=== PATIENT | male | born 1965 | race Asian ===

== ENCOUNTER 2020-07-30 07:25 | Outpatient (REF) | payer OTHER, SELFPAY | END 2020-07-30 07:26 | disposition home or self-care (01) | LOC: HO.LNP 07:25 | PROVIDERS: Visit Provider Internal Medicine Endocrinology, Diabetes & Metabolism | DX: E11.65 Type 2 diabetes mellitus with hyperglycemia (principal); E11.40 Type 2 diabetes mellitus with diabetic neuropathy, unspecified; Z79.4 Long term (current) use of insulin; E78.5 Hyperlipidemia, unspecified; E55.9 Vitamin D deficiency, unspecified; E53.8 Deficiency of other specified B group vitamins | CPT/HCPCS: 82947; 99214 ==

== ENCOUNTER 2020-11-11 06:56 | Outpatient (REF) | payer OTHER, SELFPAY ==
[2020-11-11 07:50] LABS: Mean Corpuscular Hemoglobin 28.1 pg (27.0-33.0); PLT CLUMP 1; Red Cell Distribution Width 12.6 % (11.0-16.0)
[2020-11-11 07:52] LABS: Hematocrit 45.4 % (42-52); Mean Platelet Volume 11.3 fL (9.4-12.4); Platelet Count 132 X10*3/uL (160-400); Red Blood Count 5.34 X10*6/uL (4.60-5.80); White Blood Count 5.7 X10*3/uL (4.8-10.8)
[2020-11-11 08:19] LABS: Creatinine Urine 35.44 mg/dL; Microalbumin Urine < 5.0 mg/L
[2020-11-11 08:38] LABS: Vitamin B12 736 pg/mL (200-900)
[2020-11-11 11:31] LABS: Alanine Aminotransferase 28 U/L (0-40); Albumin Level 4.5 g/dL (3.5-5.0); Alkaline Phosphatase 69 U/L (39-117); Anion Gap 15 (12-20); Aspartate Amino Transferase 24 U/L (5-37); Bilirubin Total 0.4 mg/dL (0.0-1.0); Blood Urea Nitrogen 14 mg/dL (9-16); Calcium 9.4 mg/dL (8.4-10.2); Carbon Dioxide 28 mmol/L (22-29); Chloride 100 mmol/L (96-108); Cholesterol 152 mg/dL; Estimated Glomerular Filt Rate > 60; Glucose Fasting 298 mg/dL (60-99); HDL Cholesterol 49 mg/dL; LDL Cholesterol Calculated 80 mg/dl; Potassium 4.9 mmol/l (3.3-5.1); Sodium 138 mmol/L (135-145); Total Protein 7.6 g/dL (6.5-8.0); Triglycerides 118 mg/dL
[2020-11-11 11:50] LABS: Vitamin D 25-OH Total 31.6 ng/mL (>30)
[2020-11-12 04:42] LABS: LDL Cholesterol Direct 85 mg/dL (<100)
== END 2020-11-11 06:57 | disposition home or self-care (01) ==
LOC: HO.LAB 06:56
PROVIDERS: PCP Internal Medicine; Visit Provider Internal Medicine Endocrinology, Diabetes & Metabolism
DX: E11.65 Type 2 diabetes mellitus with hyperglycemia (principal)
CPT/HCPCS: 36415; 80053; 80061; 82043; 82306; 82607; 83721; 85027

== ENCOUNTER → 2020-11-15 07:17 | Outpatient (BNVA) | payer OTHER, SELFPAY | PROVIDERS: Referring Provider Internal Medicine; Visit Provider Internal Medicine Endocrinology, Diabetes & Metabolism | DX: Z76.89 Persons encountering health services in other specified circumstances (principal) | CPT/HCPCS: 82947; 99212 ==

== ENCOUNTER 2020-11-25 08:28 | Emergency (ER) | payer OTHER, SELFPAY ==
--- NOTE | 2020-11-25 08:55 | ED_ITS ---
HPI - Abdominal Pain General Chief Complaint: Abdominal Pain Stated Complaint: ABD PAIN Time Seen by Provider: 11/25/20 08:55 Source: patient Mode of arrival: ambulatory Limitations: no limitations History of Present Illness MD elicited complaint: abdominal pain Pertinent past history: none Onset (ago): day(s) (started last night) Pain Consistency: constant Location: epigastric and LUQ Severity: mild Quality: cramping Radiation: none Migration to: no migration Exacerbating factors: nothing Relieving factors: nothing Associated symptoms: nausea and vomiting Related Data Home Medications Medication Instructions Recorded Confirmed cyclobenzaprine 10 mg tablet 10 mg PO BID 11/16/20 gabapentin 300 mg capsule mg PO 11/16/20 tramadol 50 mg tablet 50 mg PO TID PRN 11/16/20 Previous Rx's Medication Instructions Recorded cholecalciferol (vitamin D3) 50 50 mcg PO DAILY 30 Days #30 cap 11/03/20 mcg (2,000 unit) capsule cyanocobalamin (vitamin B-12) 1,000 mcg PO .COMPLEX 30 Days #10 11/03/20 1,000 mcg tablet tab dulaglutide 0.75 mg/0.5 mL 0.75 mg SUBCUT QWEEK #2 ml 11/03/20 subcutaneous pen injector metformin 1,000 mg tablet 1,000 mg PO BID 30 Days #60 tab 11/03/20 simvastatin 20 mg tablet 20 mg PO BEDTIME 30 Days #30 tab 11/03/20 empagliflozin 25 mg tablet 25 mg PO DAILY 30 Days #30 tab 11/15/20 flash glucose sensor #2 ea 11/15/20 insulin aspart See Rx Instructions SUBCUT TID 30 11/15/20 (niacinamide)(U-100) 100 unit/mL(3 Days #15 ml mL) subcutaneous pen insulin glargine 100 unit/mL (3 14 unit SUBCUT QPM 30 Days #15 ml 11/15/20 mL) subcutaneous pen ondansetron 4 mg PO Q8H PRN #20 tab 11/25/20 Allergies Allergy/AdvReac Type Severity Reaction Status Date / Time penicillin V Allergy Unknown Unknown Verified 11/16/20 11:21 Penicillins [PENICILLINS] Allergy Unknown UNKNOWN Verified 11/16/20 11:21 Sulfa (Sulfonamide Allergy Unknown UNKNOWN Verified 11/16/20 11:21 Antibiotics) [SULFA (SULFONAMIDE ANTIBIOTICS)] Review of Systems Review of Systems Constitutional : No Weight loss, No Fever, No Chills ENT/Mouth : No sore throat, No Rhinorrhea Eyes: No Swelling, No Redness Cardiovascular : No Chest Pain, No SOB, NoEdema Respiratory : No Cough, No Sputum, No Wheezing Gastrointestinal : Positive Nausea, Positive Vomiting, noDiarrhea, positive abdominal Pain, No Hematochezia, No Melena Genitourinary : No Dysuria, No Urinary Frequency, No Hematuria, No Urgency Musculoskeletal : No joint pain, No Myalgias, No Joint Swelling Skin : No Skin Lesions, No rash Neuro : No Weakness, No Numbness, No Dizziness, No Headache Psych : No Anxiety/Panic, No Depression Heme/Lymph: No Bruising, No Lymphadenopathy Endocrine : No Polyuria, No Polydipsia All other systems reviewed and are negative. Physical Exam Vital Signs: Vital Signs: Last Vital Signs Temp 98.3 F 11/25/20 08:59 Pulse 98 11/25/20 08:59 Resp 16 11/25/20 08:59 BP 124/77 11/25/20 08:59 Pulse Ox 100 11/25/20 08:59 Body Mass Index 2.0 Appearance: Alert. Oriented X3. No acute distress. Eyes: Pupils equal, round and reactive to light. ENT: Pharynx normal. Neck: Normal inspection. Neck supple. CVS: Normal heart rate and rhythm. Pulses normal. Respiratory: No respiratory distress. Breath sounds normal. Abdomen: Soft and mild epigastric ttp, no rebound or guarding Skin: Skin warm and dry. Normal skin color. Normal skin turgor. Extremities: No lower extremity edema. No calf ttp Neuro: Oriented X 3. No motor deficit. No sensory deficit. Course Course Course Narrative: labs stable, enteritis on CT scan no obstruction, able to tolerate PO - stable for DC MDM - Abdominal Pain MDM Narrative Medical decision making narrative: 55 yo male with DM/HPL here with upper abdominal pain and n/v x 3 episodes since last night, no sick contact, no food exposures, will need labs, IVF, IV zofran/pepcid, CT scan for pancreatitis/mass, dispo per results and findings. Lab Data Result diagrams: 11/25/20 09:10 11/25/20 09:10 Labs: Lab Results 01/28/21 01/28/21 01/28/21 Range/Units 09:10 09:10 09:10 WBC 10.0 (4.8-10.8) X10*3/uL RBC 5.71 (4.60-5.80) X10*6/uL Hgb 16.1 (14.0-18.0) g/dl Hct 48.5 (42-52) % MCV 84.9 (80-98) fL MCH 28.2 (27.0-33.0) pg MCHC 33.2 (31.0-36.0) g/dl RDW 13.0 (11.0-16.0) % Plt Count 214 D (160-400) X10*3/uL MPV 10.6 (9.4-12.4) fL Immature Gran % (Auto) 0.2 (0.0-0.4) % Neut % (Auto) 72.9 (45-73) % Lymph % (Auto) 21.8 (20-40) % [place] % (Auto) 4.7 (2-11) % Eos % (Auto) 0.2 (0-4) % Baso % (Auto) 0.2 (0-2) % Lymph # (Auto) 2.2 (1.2-4.9) X10*3/uL [place] # (Auto) 0.5 (0.1-1.2) X10*3/uL Eos # (Auto) 0.0 (0.0-0.4) X10*3/uL Baso # (Auto) 0.0 (0.0-0.2) X10*3/uL Abs Immat Gran (auto) 0.02 (0.00-0.03) X10*3/uL Absolute Neuts (auto) 7.3 (2.0-8.3) X10*3/uL Absolute Nucleated RBC 0.000 (0.0-0.012) X10*3/uL Nucleated RBC % (auto) 0.0 (0.0-0.2) /100WBC Hold Blue Top SEE NOTE Sodium 142 (135-145) mmol/L Potassium 4.8 (3.3-5.1) mmol/l Chloride 104 (96-108) mmol/L Carbon Dioxide 26 (22-29) mmol/L Anion Gap 17 (12-20) BUN 16 (9-16) mg/dL Creatinine 0.98 (0.5-1.4) mg/dL Estim Creat Clear Calc 7.0 Estimated GFR > 60 Random Glucose 173 H (60-115) mg/dL Calcium 10.1 D (8.4-10.2) mg/dL Magnesium 2.3 (1.6-2.6) mg/dL Total Bilirubin 0.8 (0.0-1.0) mg/dL Direct Bilirubin 0.3 (0.0-0.5) mg/dL AST 21 (5-37) U/L ALT 18 (0-40) U/L Alkaline Phosphatase 75 (39-117) U/L Troponin I High Sens (<3.5-35.0) ng/L Total Protein 8.1 H (6.5-8.0) g/dL Albumin 4.8 (3.5-5.0) g/dL Lipase 56 (8-78) U/L 11/25/20 Range/Units 09:10 WBC (4.8-10.8) X10*3/uL RBC (4.60-5.80) X10*6/uL Hgb (14.0-18.0) g/dl Hct (42-52) % MCV (80-98) fL MCH (27.0-33.0) pg MCHC (31.0-36.0) g/dl RDW (11.0-16.0) % Plt Count (160-400) X10*3/uL MPV (9.4-12.4) fL Immature Gran % (Auto) (0.0-0.4) % Neut % (Auto) (45-73) % Lymph % (Auto) (20-40) % [place] % (Auto) (2-11) % Eos % (Auto) (0-4) % Baso % (Auto) (0-2) % Lymph # (Auto) (1.2-4.9) X10*3/uL [place] # (Auto) (0.1-1.2) X10*3/uL Eos # (Auto) (0.0-0.4) X10*3/uL Baso # (Auto) (0.0-0.2) X10*3/uL Abs Immat Gran (auto) (0.00-0.03) X10*3/uL Absolute Neuts (auto) (2.0-8.3) X10*3/uL Absolute Nucleated RBC (0.0-0.012) X10*3/uL Nucleated RBC % (auto) (0.0-0.2) /100WBC Hold Blue Top Sodium (135-145) mmol/L Potassium (3.3-5.1) mmol/l Chloride (96-108) mmol/L Carbon Dioxide (22-29) mmol/L Anion Gap (12-20) BUN (9-16) mg/dL Creatinine (0.5-1.4) mg/dL Estim Creat Clear Calc Estimated GFR Random Glucose (60-115) mg/dL Calcium (8.4-10.2) mg/dL Magnesium (1.6-2.6) mg/dL Total Bilirubin (0.0-1.0) mg/dL Direct Bilirubin (0.0-0.5) mg/dL AST (5-37) U/L ALT (0-40) U/L Alkaline Phosphatase (39-117) U/L Troponin I High Sens < 3.5 (<3.5-35.0) ng/L Total Protein (6.5-8.0) g/dL Albumin (3.5-5.0) g/dL Lipase (8-78) U/L ECG Data Attestation: I personally reviewed and interpreted this ECG as follows: ECG interpretation date: 11/25/20 ECG interpretation time: 09:18 Interpretation: Rate: 104 Rhythm: sinus tachycardia [place]: normal Normal P waves. Normal MEENA. Normal QRS complex. ST T wave : normal , no SHEREE qTC: normal prior studies: no acute ischemia The study has been interpreted contemporaneously by me. . Discharge Plan Discharge Clinical Impression: Abdominal pain Qualifiers: Abdominal location: left upper quadrant Qualified Code(s): R10.12 - Left upper quadrant pain Vomiting Qualifiers: Vomiting type: unspecified Vomiting Intractability: non-intractable Nausea presence: with nausea Qualified Code(s): R11.2 - Nausea with vomiting, unspe cified Patient Disposition: Home, Self-Care Instructions: Acute Nausea and Vomiting (ED), Abdominal Pain (ED) Additional Instructions: return to ED for any worsening symptoms or concerns eat a bland diet bananas, rice apple sauce toast Prescriptions: New ondansetron 4 mg tablet,disintegrating 4 mg PO Q8H PRN (Reason: nausea and vomiting) Qty: 20 RF: 0 No Action cholecalciferol (vitamin D3) 50 mcg (2,000 unit) capsule 50 mcg PO DAILY 30 Days Qty: 30 RF: 6 cyanocobalamin (vitamin B-12) 1,000 mcg tablet 1,000 mcg PO .COMPLEX 30 Days Qty: 10 RF: 6 Trulicity 0.75 mg/0.5 mL pen injector 0.75 mg subcut QWEEK Qty: 2 RF: 6 metformin 1,000 mg tablet 1,000 mg PO BID 30 Days Qty: 60 RF: 6 simvastatin 20 mg tablet 20 mg PO BEDTIME 30 Days Qty: 30 RF: 4 Jardiance 25 mg tablet 25 mg PO DAILY 30 Days Qty: 30 RF: 6 Fiasp FlexTouch U-100 Insulin 100 unit/mL (3 mL) insulin pen See Rx Instructions subcut TID 30 Days Qty: 15 RF: 6 Lantus Solostar U-100 Insulin 100 unit/mL (3 mL) insulin pen 14 unit subcut QPM 30 Days Qty: 15 RF: 6 (DME) FreeStyle Gregg 14 Day Sensor Kit See Rx Instructions .MEDSUPPLY Qty: 2 RF: 11 Referrals: Gabriel Padilla MD [Primary Care Provider] - 2 days (if not better) [facility] Past Medical History Attestation statement: The following information was validated with the patient. 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
[2020-11-25 08:59] VITALS: BP 124/77; PULSE 98; RESP 16; TEMP 36.8; O2SAT 100
--- NOTE | 2020-11-25 09:00 | ECG_ITS ---
Test Reason : FALL Blood Pressure : / mmHG Vent. Rate : 104 BPM Atrial Rate : 104 BPM P-R Int : 152 ms QRS Dur : 070 ms QT Int : 340 ms P-R-T Axes : 065 089 058 degrees QTc Int : 447 ms Sinus tachycardia Otherwise normal ECG When compared with ECG of 11-SEP-2013 06:19, No significant change was found Referred By: Valeri Fang Electronically Signed By:Gato Bennett
--- NOTE | 2020-11-25 09:00 | CT_ITS ---
EXAMINATION: CT ABDOMEN AND PELVIS WITH CONTRAST CLINICAL INFORMATION: Epigastric, left-sided pain. COMPARISON: 09/11/2013 TECHNIQUE: Multidetector volumetric images were obtained from the superior aspect of the liver through the pubic symphysis following administration 85 mL of Omnipaque 350 intravenous contrast. Sagittal and coronal reformatted images were obtained on the technologist's workstation. Oral contrast: No This CT examination was performed using dose optimization techniques as appropriate, variously including the following: *Automated exposure control *Adjustment of mA and/or kV according to patient size (this includes techniques or standardized protocols for targeted exams where dose is matched to indication/reason for exam; i.e. extremities or head) *Use of iterative reconstruction technique DLP: 530 mGy-cm FINDINGS: LUNG BASES: Minimal right basilar atelectasis. The visualized cardiac structures are unremarkable. LIVER, GALLBLADDER, AND BILIARY TREE: The liver is normal in size, shape, and attenuation. No focal hepatic lesion or biliary ductal dilatation is present. The gallbladder is contracted with no evidence of radiopaque gallstones, gallbladder wall thickening, or obvious pericholecystic inflammatory changes. PANCREAS: Unremarkable. SPLEEN: Unremarkable. ADRENAL GLANDS: Unremarkable. KIDNEYS AND URETERS: The kidneys are normal in size, shape, and attenuation. No hydronephrosis, hydroureter, or calculi seen. No perinephric stranding. BLADDER: Unremarkable. GASTROINTESTINAL TRACT: The stomach is distended without wall thickening. Mild fluid-filled prominence of the small bowel proximally. No inflammatory changes or wall thickening. No colonic wall thickening. No free air or free fluid. The appendix is not visualized. ABDOMINAL WALL: No significant hernia is appreciated. LYMPH NODES: Normal. VASCULAR: Unremarkable. PELVIC VISCERA: The prostate and seminal vesicles are unremarkable. OSSEOUS STRUCTURES: No acute or suspicious osseous abnormality. CT/CT abdomen pelvis w con IMPRESSION: Fluid-filled mild distention of the proximal small bowel. No associated wall thickening or inflammatory change. This could still represent mild enteritis. Otherwise no acute finding in the abdomen or pelvis.
[2020-11-25] MEDS: 0.9 % Sodium Chloride 500 ML IV (09:10)
[2020-11-25] MEDS: ondansetron HCL 4 MG/2 ML VIAL IVPUSH (09:14)
[2020-11-25] MEDS: Famotidine/PF 20 MG/2 ML VIAL IVPUSH (09:15)
[2020-11-25 09:19] LABS: MANUAL DIFF FLAG NO
[2020-11-25 09:24] LABS: Basophils Percent Auto 0.2 % (0-2); Eosinophils Percent Auto 0.2 % (0-4); Hematocrit 48.5 % (42-52); Hemoglobin 16.1 g/dl (14.0-18.0); Imm Gran Abs Auto 0.02 X10*3/uL (0.00-0.03); Imm Gran Pct Auto 0.2 % (0.0-0.4); Lymphocytes Absolute Auto 2.2 X10*3/uL (1.2-4.9); Lymphocytes Percent Auto 21.8 % (20-40); Mean Corpuscular HGB Conc 33.2 g/dl (31.0-36.0); Mean Corpuscular Hemoglobin 28.2 pg (27.0-33.0); Mean Corpuscular Volume 84.9 fL (80-98); Mean Platelet Volume 10.6 fL (9.4-12.4); Monocytes Absolute Auto 0.5 X10*3/uL (0.1-1.2); Monocytes Percent Auto 4.7 % (2-11); Neutrophils Absolute Auto 7.3 X10*3/uL (2.0-8.3); Neutrophils Percent Auto 72.9 % (45-73); Platelet Count 214 X10*3/uL (160-400); Red Blood Count 5.71 X10*6/uL (4.60-5.80)
[2020-11-25 09:52] LABS: Alanine Aminotransferase 18 U/L (0-40); Albumin Level 4.8 g/dL (3.5-5.0); Alkaline Phosphatase 75 U/L (39-117); Anion Gap 17 (12-20); Aspartate Amino Transferase 21 U/L (5-37); Bilirubin Direct 0.3 mg/dL (0.0-0.5); Bilirubin Total 0.8 mg/dL (0.0-1.0); Blood Urea Nitrogen 16 mg/dL (9-16); Calcium 10.1 mg/dL (8.4-10.2); Carbon Dioxide 26 mmol/L (22-29); Chloride 104 mmol/L (96-108); Estimated Glomerular Filt Rate > 60; Glucose Random 173 mg/dL (60-115); Lipase 56 U/L (8-78); Magnesium 2.3 mg/dL (1.6-2.6); Potassium 4.8 mmol/l (3.3-5.1); Sodium 142 mmol/L (135-145); Total Protein 8.1 g/dL (6.5-8.0)
[2020-11-25 09:55] LABS: Troponin-I High Sensitivity < 3.5 ng/L (<3.5-35.0)
[2020-11-25] MEDS: iohexoL 350 MG/ML 100 ML INFUS..BTL 85 ML IV (10:44)
== END 2020-11-25 12:07 | disposition home or self-care (01) ==
PROVIDERS: Emergency Provider Emergency Medicine; PCP Internal Medicine
DX: R10.12 Left upper quadrant pain (principal); R11.2 Nausea with vomiting, unspecified; E11.9 Type 2 diabetes mellitus without complications; Z79.4 Long term (current) use of insulin
CPT/HCPCS: 36415; 74177; 80048; 80076; 83690; 83735; 84484; 85025; 93005; 96361; 96374; 96375; 99284; J2405; Q9967

== ENCOUNTER → 2020-12-06 09:26 | Outpatient (BNVA) | payer OTHER, SELFPAY | PROVIDERS: PCP Physician Assistant; Visit Provider Orthopaedic Surgery | DX: M24.811 Other specific joint derangements of right shoulder, not elsewhere classified (principal); E11.40 Type 2 diabetes mellitus with diabetic neuropathy, unspecified; E11.65 Type 2 diabetes mellitus with hyperglycemia | CPT/HCPCS: 20610; 99212; J1100 ==

== ENCOUNTER 2020-12-24 09:05 | Outpatient (REF) | payer OTHER, SELFPAY ==
--- NOTE | ~2020-12-24 | MR_ITS ---
EXAMINATION: MR SHOULDER WITHOUT CONTRAST, RIGHT CLINICAL INFORMATION: Derangement of right shoulder. Patient reports shoulder pain. COMPARISON: None TECHNIQUE: MRI of the shoulder without contrast was performed on a high-field scanner. FINDINGS: ROTATOR CUFF: Supraspinatus: There is a full-thickness tear of the anterior supraspinatus tendon resulting in retraction of the torn portion of the tendon back to the apex of the humeral head. This results in a tendon gap measuring 2.3 cm medial to lateral and 1.1 cm AP. There is no atrophy or fatty infiltration of the muscle. Infraspinatus: Normal. Teres minor: Normal. Subscapularis: Mild heterogeneity of the superior fibers compatible with tendinosis. No measurable tear. Muscle normal BICEPS: The biceps is slightly medially positioned as it passes into the bicipital groove partially overlying the lateral aspect of the lesser tuberosity. Slight irregularity of the posterior surface which could reflect volume average artifact versus superficial partial tearing or fraying. See axial image 14 series 2. CORACOACROMIAL ARCH: The AC joint is normal. There is mild concavity of the undersurface of the acromion without spur. BURSA: Increased fluid in the subacromial-subdeltoid bursa. LABRUM/CAPSULE: Normal. GLENOHUMERAL JOINT/MARROW: Enthesopathic cystic change in the greater tuberosity most evident posteriorly. MR/MR shoulder RT wo con IMPRESSION: Moderate sized insertional full-thickness tear involving the anterior supraspinatus tendon. No muscle atrophy. Tendinosis of the subscapularis. Slight medial subluxation of the biceps tendon. Question surface of partial tearing/fraying versus flattening related to the bone indentation on the tendon related to the medial subluxation.
== END 2020-12-24 09:06 | disposition home or self-care (01) ==
LOC: HO.MRI 09:05
PROVIDERS: Visit Provider Orthopaedic Surgery
DX: M24.811 Other specific joint derangements of right shoulder, not elsewhere classified (principal)
CPT/HCPCS: 73221

== ENCOUNTER → 2021-01-07 09:22 | Outpatient (BNVA) | payer OTHER, SELFPAY | PROVIDERS: PCP Physician Assistant; Visit Provider Orthopaedic Surgery | DX: M75.101 Unspecified rotator cuff tear or rupture of right shoulder, not specified as traumatic (principal) | CPT/HCPCS: 99212 ==

== ENCOUNTER → 2021-02-16 07:27 | Outpatient (BNVA) | payer OTHER, SELFPAY | PROVIDERS: PCP Physician Assistant; Visit Provider Internal Medicine Endocrinology, Diabetes & Metabolism | DX: E11.65 Type 2 diabetes mellitus with hyperglycemia (principal); E11.40 Type 2 diabetes mellitus with diabetic neuropathy, unspecified; E78.5 Hyperlipidemia, unspecified; E55.9 Vitamin D deficiency, unspecified; E53.8 Deficiency of other specified B group vitamins; Z79.4 Long term (current) use of insulin | CPT/HCPCS: 82947; 99212 ==

== ENCOUNTER → 2021-05-18 07:27 | Outpatient (BNVA) | payer OTHER, SELFPAY | PROVIDERS: PCP Physician Assistant; Visit Provider Internal Medicine Endocrinology, Diabetes & Metabolism | DX: E11.65 Type 2 diabetes mellitus with hyperglycemia (principal); E11.40 Type 2 diabetes mellitus with diabetic neuropathy, unspecified; E78.5 Hyperlipidemia, unspecified; E55.9 Vitamin D deficiency, unspecified; D50.9 Iron deficiency anemia, unspecified; E53.8 Deficiency of other specified B group vitamins; Z88.0 Allergy status to penicillin; Z88.2 Allergy status to sulfonamides; Z79.4 Long term (current) use of insulin; Z79.899 Other long term (current) drug therapy | CPT/HCPCS: 82947; 99212 ==

== ENCOUNTER 2022-01-09 07:39 | Outpatient (REF) | payer OTHER, SELFPAY ==
[2022-01-09 08:51] LABS: Estimated Average Glucose 186 mg/dL; Hemoglobin A1c % 8.1 %
[2022-01-09 09:17] LABS: Alanine Aminotransferase 21 U/L (0-40); Albumin Level 4.4 g/dL (3.5-5.0); Alkaline Phosphatase 69 U/L (39-117); Anion Gap 15 (12-20); Aspartate Amino Transferase 19 U/L (5-37); Bilirubin Total 0.4 mg/dL (0.0-1.0); Blood Urea Nitrogen 16 mg/dL (9-16); Calcium 9.6 mg/dL (8.4-10.2); Carbon Dioxide 27 mmol/L (22-29); Chloride 103 mmol/L (96-108); Cholesterol 139 mg/dL; Estimated Glomerular Filt Rate > 60; Glucose Fasting 196 mg/dL (60-99); HDL Cholesterol 36 mg/dL; LDL Cholesterol Calculated 72 mg/dl; Potassium 4.6 mmol/L (3.3-5.1); Sodium 140 mmol/L (135-145); Total Protein 7.8 g/dL (6.5-8.0); Triglycerides 158 mg/dL
[2022-01-09 09:41] LABS: Creatinine Urine 57.37 mg/dL; Microalbumin Urine < 5.0 mg/L
[2022-01-10 18:25] LABS: LDL Cholesterol Direct 84 mg/dL (<100)
== END 2022-01-09 07:40 | disposition home or self-care (01) ==
LOC: HO.LAB 07:39
PROVIDERS: PCP Internal Medicine; Visit Provider Nurse Practitioner Gerontology
DX: E11.65 Type 2 diabetes mellitus with hyperglycemia (principal)
CPT/HCPCS: 36415; 80053; 80061; 82043; 83036; 83721

== ENCOUNTER → 2022-01-17 07:26 | Outpatient (BNVA) | payer OTHER, SELFPAY | PROVIDERS: PCP Physician Assistant; Visit Provider Nurse Practitioner Gerontology | DX: E11.65 Type 2 diabetes mellitus with hyperglycemia (principal); E78.5 Hyperlipidemia, unspecified; E55.9 Vitamin D deficiency, unspecified; E53.8 Deficiency of other specified B group vitamins; Z79.4 Long term (current) use of insulin | CPT/HCPCS: 82947; 99212 ==

== ENCOUNTER 2022-04-20 07:29 | Outpatient (REF) | payer OTHER, SELFPAY ==
[2022-04-20 10:42] LABS: Vitamin B12 383 pg/mL (200-900)
[2022-04-20 11:14] LABS: Vitamin D 25-OH Total 38.7 ng/mL (>30)
== END 2022-04-20 07:30 | disposition home or self-care (01) ==
LOC: HO.LAB 07:29
PROVIDERS: PCP Internal Medicine; Visit Provider Nurse Practitioner Gerontology
DX: E11.65 Type 2 diabetes mellitus with hyperglycemia (principal); E78.5 Hyperlipidemia, unspecified; E55.9 Vitamin D deficiency, unspecified; E53.8 Deficiency of other specified B group vitamins; Z79.4 Long term (current) use of insulin
CPT/HCPCS: 36415; 82306; 82607; 82947; 99212

== ENCOUNTER 2022-12-05 08:33 | Outpatient (REF) | payer OTHER, SELFPAY ==
[2022-12-05 11:29] LABS: MANUAL DIFF FLAG NO
[2022-12-05 11:35] LABS: Basophils Percent Auto 0.3 % (0-2); Eosinophils Absolute Auto 0.1 X10*3/uL (0.0-0.4); Eosinophils Percent Auto 1.2 % (0-4); Hematocrit 44.6 % (42.0-52.0); Hemoglobin 14.2 g/dl (14.0-18.0); Imm Gran Abs Auto 0.01 X10*3/uL (0.00-0.03); Imm Gran Pct Auto 0.2 % (0.0-0.4); Lymphocytes Absolute Auto 3.5 X10*3/uL (1.2-4.9); Lymphocytes Percent Auto 52.3 % (20-40); Mean Corpuscular HGB Conc 31.8 g/dl (31.0-36.0); Mean Corpuscular Hemoglobin 26.4 pg (27.0-33.0); Mean Corpuscular Volume 82.9 fL (80.0-98.0); Mean Platelet Volume 10.4 fL (9.4-12.4); Monocytes Absolute Auto 0.4 X10*3/uL (0.1-1.2); Monocytes Percent Auto 6.1 % (2-11); Neutrophils Absolute Auto 2.6 x10*3/uL (2.0-8.3); Neutrophils Percent Auto 39.9 % (45-73); Platelet Count 199 X10*3/uL (160-400); Red Blood Count 5.38 X10*6/uL (4.60-5.80); Red Cell Distribution Width 13.7 % (11.0-16.0); White Blood Count 6.6 X10*3/uL (4.8-10.8)
[2022-12-05 12:01] LABS: Alanine Aminotransferase 17 U/L (0-40); Albumin Level 4.3 g/dL (3.5-5.0); Alkaline Phosphatase 68 U/L (39-117); Anion Gap 15 (12-20); Aspartate Amino Transferase 18 U/L (5-37); Bilirubin Total 0.5 mg/dL (0.0-1.0); Blood Urea Nitrogen 15 mg/dL (9-16); Calcium 9.5 mg/dL (8.4-10.2); Carbon Dioxide 25 mmol/L (22-29); Chloride 105 mmol/L (96-108); Cholesterol 138 mg/dL; Estimated Glomerular Filt Rate > 60; Glucose Fasting 156 mg/dL (60-99); HDL Cholesterol 36 mg/dL; LDL Cholesterol Calculated 80 mg/dl; Potassium 4.7 mmol/L (3.3-5.1); Sodium 140 mmol/L (135-145); Total Protein 7.3 g/dL (6.5-8.0); Triglycerides 110 mg/dL
[2022-12-05 12:12] LABS: Estimated Average Glucose 194 mg/dL; Hemoglobin A1c % 8.4 %
[2022-12-05 12:22] LABS: TSH reflex Free T4 1.67 uIU/mL (0.32-4.0); Vitamin B12 393 pg/mL (200-900)
[2022-12-10 16:03] LABS: Vitamin D 25-OH, D2 <4 ng/mL; Vitamin D 25-OH, D3 27 ng/mL; Vitamin D 25-OH, Total 27 ng/mL (30-100)
== END 2022-12-05 08:34 | disposition home or self-care (01) ==
LOC: HO.HMGCLDS 08:33
PROVIDERS: PCP Internal Medicine; Visit Provider Internal Medicine
DX: E11.40 Type 2 diabetes mellitus with diabetic neuropathy, unspecified (principal); E53.8 Deficiency of other specified B group vitamins; E55.9 Vitamin D deficiency, unspecified; E78.5 Hyperlipidemia, unspecified; K21.9 Gastro-esophageal reflux disease without esophagitis; Z79.4 Long term (current) use of insulin
CPT/HCPCS: 36415; 80053; 80061; 82306; 82607; 83036; 84443; 85025

== ENCOUNTER → 2023-03-28 07:54 | Outpatient (BNVA) | payer OTHER, SELFPAY | PROVIDERS: PCP Internal Medicine; Visit Provider Internal Medicine Endocrinology, Diabetes & Metabolism | DX: E11.65 Type 2 diabetes mellitus with hyperglycemia (principal); Z79.4 Long term (current) use of insulin | CPT/HCPCS: 82947; 83036; 99212 ==

== ENCOUNTER 2023-05-18 08:27 | Outpatient (AMB) | payer OTHER, SELFPAY ==
--- NOTE | 2023-05-18 09:11 | MHC.AMDMED ---
Intake Intake Visit Reasons: DM with gregg Operational Test Mechanic Required: No Accompanied by: Self / Same As Patient Allergies penicillin V Allergy (Unknown, Verified 03/28/23 07:58) Unknown Penicillins [PENICILLINS] Allergy (Unknown, Verified 03/28/23 07:58) UNKNOWN Sulfa (Sulfonamide Antibiotics) [SULFA (SULFONAMIDE ANTIBIOTICS)] Allergy (Unknown, Verified 03/28/23 07:58) UNKNOWN HPI Comprehensive Diabetes Asmnt Most Recent Diabetes Results: Microalb/Creat Ratio TNP 01/09/22 Cholesterol 138 mg/dL 12/05/22 HDL Cholesterol 36 mg/dL 12/05/22 Triglycerides 110 mg/dL 12/05/22 Creatinine 0.73 mg/dL (0.5-1.4) 12/05/22 Blood Urea Nitrogen 15 mg/dL (9-16) 12/05/22 Sodium 140 mmol/L (135-145) 12/05/22 Potassium 4.7 mmol/L (3.3-5.1) 12/05/22 Chloride 105 mmol/L (96-108) 12/05/22 Carbon Dioxide 25 mmol/L (22-29) 12/05/22 Calcium 9.5 mg/dL (8.4-10.2) 12/05/22 AST 18 U/L (5-37) 12/05/22 ALT 17 U/L (0-40) 12/05/22 Total Protein 7.3 g/dL (6.5-8.0) 12/05/22 Albumin 4.3 g/dL (3.5-5.0) 12/05/22 [facility] Medical History B12 deficiency Diabetes type 2, uncontrolled Dyslipidemia Internal 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 of right shoulder 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 Vitamin D deficiency Surgical History Hx of appendectomy Family History Mother Diabetes Social History Housing: House Alcohol intake: never Patient Tobacco Use Status: Former Tobacco user e-Cigarette/Vaping Use: Never Used Second Hand Smoke Exposure: No service: No Current occupational status: employed 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 2= needs review? 3= comprehend keep point? 4= demonstrates understanding/ competent? NC= Not Covered Topics Learning Objective: Initial visit Initial or post srvc Initial or post srvc Initial or post srvc Initial or post srvc Initial or post srvc Post srvc Comments Pre Edu-assessment/plan Outcome or reassess Outcome or reassess Outcome or reassess Outcome or reassess Outcome or reassess Outcome or reassess Diabetes pathophysiology 2 Healthy eating 2 Being active 2 Taking medication 2 Monitoring glucose Acute complication Chronic complicated 2 Lifestyle and healthy coping 1 Diabetes distress in support ?Diabetes pathophysiology: ?Defined diabetes med identify own type of diabetes; list 3 options for treating diabetes Healthy eating: ?Described effect of type, amount and ?timing of food on blood glucose; list 3 methods for planning meal Being active: ?State effect of exercise on blood glucose level Taking medication: ?State effect of diabetes medications on diabetes; name diabetes medications taking, action and side effects Monitoring glucose: ?Identify recommended blood glucose targets and personal target Acute complication: ?List symptoms and treatment of hyper and hypoglycemia, DKA, sick day guidelines and guidelines for severe weather or situations of crisis and diabetes supply manage Chronic complication: ?To find the relationship of blood glucose levels to long-term complications of diabetes in screening and preventative measures Lifestyle and healthy coping: ?Described lifestyle and healthy coping strategies to rule out diabetes self-management Diabetes to stress and support: ?Recognize Diabetes to stress and be able to identified support options Learning objectives: The patient was provided with verbal and written education on the following topics as outlined below. The patient met all learning objectives and was able to verbalize understanding and provide teach back of education topics discussed . The patient was provided with the opportunity to ask questions and all questions were answered. Patient Assessment Assess patient education level/literacy/barriers Patient questions/concerns, patient with diagnosed with type 2 diabetes approximately 2004. Patient's last A1c on 03/28/2023 9.4%. Patient is currently taking Tresiba 18 units Faisp before meals, 12 units for breakfast, 16 units for lunch, 16-18 units at supper Metformin 2000 mg b.i.d. Jardiance 25 mg daily After visit with Dr. Sherwood on 03/28/2023 patient has stopped Trulicity 3 mg due to acid reflux Patient works 6 days a week at [employer]. Reports eating 3 meals daily, patient eats traditional [place] istyle bread with every meal, patient also drinks tea with sugar, and enjoys sweets Patient does not participate any organized physical activity, reports that his office is on the for so goes up and down the stairs at work multiple times daily What is Diabetes? Pathophysiology How the body produces and uses insulin Identify type of DM Risk factors Signs of Diabetes Brief overview of Diabetes Management Monitoring blood sugar Following a meal plan Regular exercise Maintaining a healthy weight Taking medication as needed Members of the care team (PCP, RN, MA, RD, CDE, parts counter salesperson) Blood glucose monitoring When/how often to test Target blood sugar ranges Patient using freestyle Gregg 2 to test glucose levels Patient's average glucose for the past 2 weeks 245 mg/dL Patient above target 72% Patient at target 28% Patient below target 0% Introduction to Nutrition Importance of healthy diet in managing DM Diet is personalized to individual preference Review patient?s regular diet/food preferences Who prepares meals/does food shopping/ Dining out?/ Barriers? How diet effects glucose Eating 3 balanced meals a day with small, healthy snacks between meals Review food groups Carbohydrates: What is a carbohydrate/Which food/food groups are considered carbohydrates Effect of carbohydrates on blood glucose Portion sizes Reading food labels Basic carb counting (if applicable per nursing assessment) Plate method Meal planning Recommendations: Follow plate method, consistent carbs and read nutritional labels. Smart Goal: Patient will reduce carbohydrate portion at suppertime Educational Materials: The patient was provided with the following written educational materials: Planning Healthy Meals Handout Patient Response to instructions: Comprehension of Instructions: Fair Readiness to make changes: Contemplation How confident they feel about making changes: Fair Patient Instructions: Include regular daily activity. ADA recommends 30 minutes of exercise 5 days a week. Weight loss talk to PCP or Hotel Or Motel Room Service Supervisor before starting new plan. Test blood sugar as directed; Fasting and 2hpp largest meal. Watch trends in results. Utilize results and to assess how food, physical activity and medications affect blood sugar results. Bring glucometer or CGM to next visit. Be knowledgeable about diabetes medication, its action, side effects, efficacy, toxicity, prescribed dosage, appropriate timing and frequency of administration, effect of missed and delayed doses and instructions for storage, travel and safety. Increase Tresiba from 18 units to 20 unit daily Follow-up with metal drill press operator in 3 months Coding Level of Care Code Est Pt Level 1 (74165) Diagnoses Diabetes type 2, uncontrolled E11.65
== END 2023-05-18 09:39 | disposition home or self-care (01) ==
PROVIDERS: PCP Internal Medicine; Visit Provider Registered Nurse Diabetes Educator
DX: E11.65 Type 2 diabetes mellitus with hyperglycemia (principal)

== ENCOUNTER → 2023-05-18 08:27 | Outpatient (BNVA) | payer OTHER, SELFPAY | PROVIDERS: Visit Provider Registered Nurse Diabetes Educator | DX: E11.65 Type 2 diabetes mellitus with hyperglycemia (principal) | CPT/HCPCS: 99211 ==

== ENCOUNTER 2023-07-19 08:05 | Outpatient (REF) | payer OTHER, SELFPAY ==
[2023-07-19 09:18] LABS: Estimated Average Glucose 275 mg/dL; Hemoglobin A1c % 11.2 % (<6.0)
[2023-07-19 09:39] LABS: Alanine Aminotransferase 15 U/L (0-40); Alkaline Phosphatase 72 U/L (39-117); Anion Gap 12 (12-20); Aspartate Amino Transferase 17 U/L (5-37); Bilirubin Total 0.5 mg/dL (0.0-1.0); Blood Urea Nitrogen 10 mg/dL (9-16); Calcium 9.4 mg/dL (8.4-10.2); Carbon Dioxide 28 mmol/L (22-29); Chloride 103 mmol/L (96-108); Estimated Glomerular Filt Rate > 60; Glucose Random 213 mg/dL (60-115); Potassium 4.2 mmol/L (3.3-5.1); Sodium 139 mmol/L (135-145); Total Protein 7.4 g/dL (6.5-8.0)
[2023-07-19 11:19] LABS: Microalbumin Urine < 5.0 mg/L
== END 2023-07-19 08:06 | disposition home or self-care (01) ==
LOC: HO.LAB 08:05
PROVIDERS: PCP Internal Medicine; Visit Provider Internal Medicine Endocrinology, Diabetes & Metabolism
DX: E11.9 Type 2 diabetes mellitus without complications (principal); K21.9 Gastro-esophageal reflux disease without esophagitis; E78.5 Hyperlipidemia, unspecified; Z79.4 Long term (current) use of insulin
CPT/HCPCS: 36415; 80053; 82043; 82570; 83036

== ENCOUNTER 2023-07-27 08:00 | Outpatient (AMB) | payer OTHER, SELFPAY ==
--- NOTE | 2023-07-27 08:03 | MHC.OFFVIS ---
Intake Vital Signs 07/27/23 08:04 Height 5 ft 6 in Weight 142 lb 13.753 oz BMI 23.1 BP 104/58 L Blood Pressure Location Lt brachial Position Sitting Pulse 76 Pulse Source Pulse Oximeter Intake Visit Reasons: DM with Gregg/LVM Intake Note: Patient present today to follow up on Type 2 Diabetes Mellitus. Patient receives DME supplies through: Last Diabetic Eye exam: 08/2022 Last Podiatry Visit: None Random Glucose: 156 mg/dl HgA1C: 11.2% 07/19/23 Can Sealer Required: No Accompanied by: Self / Same As Patient Allergies penicillin V Allergy (Unknown, Verified 07/27/23 08:06) Unknown Penicillins [PENICILLINS] Allergy (Unknown, Verified 07/27/23 08:06) UNKNOWN Sulfa (Sulfonamide Antibiotics) [SULFA (SULFONAMIDE ANTIBIOTICS)] Allergy (Unknown, Verified 07/27/23 08:06) UNKNOWN HPI HPI Comments History of Present Illness Details Patient is a 58 year male with DM type 2 diagnosed in 2005 who presents for management of diabetes. Past medical history: DM 2 Hyperlipidemia iron deficiency anemia B12 deficiency Micro and macrovascular complications: none known. Diabetes medications: Tresiba 20 units at bedtime, metformin 1000 twice a day Trulicity 3 weekly not taking because of nausea , Jardiance 25mg, not taking because ran out Fiasp 14 units with breakfast, 12 units lunch and 16 units with dinner. He is taking the Fiasp after eating Continuous glucose monitoring: Past 2 weeks C GM is active 74% with an average blood glucose of 9.6, GM I 9.6%. Patient has 0% low glucose from 54-69. Glucose in target range of 70-180, 21%. 79% above target range. Patient has a pattern of significant postprandial hyperglycemia. He has hypoglycemic events overnight with declining POC Symptoms reported: denies numbness, tingling, cramping in lower extremities Hypoglycemia: rare . 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 Ophthalmology evaluation: has appt Aug 2023 Other specialists: none Laboratory Tests 01/05/22 01/09/22 01/09/22 08:56 07:50 07:55 Creatinine 0.88 Estimated GFR > 60 Hgb A1c (Clinic) 8.0 H Hemoglobin A1c % Triglycerides 158 Cholesterol 139 LDL Cholesterol Di rect LDL Cholesterol, C alc 72 HDL Cholesterol 36 D Microalb/Creat Rat io TNP 01/09/22 01/09/22 07:55 07:55 Creatinine Estimated GFR Hgb A1c (Clinic) Hemoglobin A1c % 8.1 Triglycerides Cholesterol LDL Cholesterol Di rect 84 LDL Cholesterol, C alc HDL Cholesterol Microalb/Creat Rat io PFSH Medical History B12 deficiency Diabetes type 2, uncontrolled Dyslipidemia Internal derangement of right shoulder longterm (current) use of insulin Vitamin D deficiency Surgical History Hx of appendectomy Family History Mother Diabetes Social History Housing: House Alcohol intake: never Patient Tobacco Use Status: Former Tobacco user e-Cigarette/Vaping Use: Never Used Second Hand Smoke Exposure: No service: No Current occupational status: employed 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 Absence of acromegalic features. Neck exam reveals nl size thyroid about 15 gms. No thyroid nodules palpable. No carotid bruits present. Lungs CTA. Heart S1 S2, Reg R/R. No M/R/ G. Skin exam reveals absence of vitiligo or acanthosis nigricans. Abdominal exam reveals Soft NT/ND with NA BS. No organomegaly present. Neck Other: . Extrem Other: Visual exam of foot performed. No ulcerations or open lesions. No onchomycosis, no callouses.Pulses 2 + distally Sensation intact to monofilament exam. Vibratory sensation sensed is intact with 128 Hz tuning fork Assessment & Plan Assessment & Plan (1) Diabetes type 2, uncontrolled: Code(s): E11.65 - Type 2 diabetes mellitus with hyperglycemia Plan: This 58-year-old male with history of type 2 diabetes being treated with metformin, Trulicity, Jardiance and basal-bolus insulin with fair glycemic control with microvascular complications namely neuropathy. The plan is to restart the Jardiance. Also offered to start alternative G LP 1 like Ozempic or Mounjaro but patient does not want to do this at the present time. Also told patient increased the Fiasp by 2-3 units if he continues to have post-meal excursion. Will have patient follow up with climatology teacher. Explained correlation of poor glycemic control the development and progression of complications Medications: Refilled empagliflozin (Jardiance) 25 mg PO DAILY 30 days 30 tabs 6RF E11.65 - Type 2 diabetes mellitus with hyperglycemia insulin aspart (niacinamide) 100 unit/mL (3 mL) (Fiasp FlexTouch U-100 Insulin) 10 units with breakfast, 8 units with lunch and 14 units with dinner subcut 3 times a day; 90 days 45 mL 2RF E11.65 - Type 2 diabetes mellitus with hyperglycemia insulin degludec (Tresiba FlexTouch U-200 insulin) 18 units (0.09 mL) subcut BEDTIME 90 days 9 mL 3RF Coding Level of Care Code Est Pt Level 4 (60522) Diagnoses Diabetes type 2, uncontrolled E11.65
[2023-07-27 08:04] VITALS: BP 104/58; PULSE 76; BMI 23.1
[2023-07-27 08:14] LABS: Glucose, Whole Blood 156 mg/dL (60-115)
== END 2023-07-27 08:27 | disposition home or self-care (01) ==
PROVIDERS: PCP Internal Medicine; Visit Provider Internal Medicine Endocrinology, Diabetes & Metabolism
DX: E11.65 Type 2 diabetes mellitus with hyperglycemia (principal)
CPT/HCPCS: 99214

== ENCOUNTER → 2023-07-27 08:00 | Outpatient (BNVA) | payer OTHER, SELFPAY | PROVIDERS: Visit Provider Internal Medicine Endocrinology, Diabetes & Metabolism | DX: E11.65 Type 2 diabetes mellitus with hyperglycemia (principal) | CPT/HCPCS: 82947; 99212 ==

== ENCOUNTER 2023-08-20 01:25 | Emergency (ER) | payer OTHER, SELFPAY ==
[2023-08-20 01:39] VITALS: BP 125/70; PULSE 80; RESP 16; TEMP 36.4; O2SAT 96; BMI 21.6
[2023-08-20 02:26] LABS: Glucose, Whole Blood 279 mg/dL (60-115)
[2023-08-20 02:27] LABS: MANUAL DIFF FLAG NO
[2023-08-20 02:28] LABS: Basophils Percent Auto 0.6 % (0-2); Eosinophils Absolute Auto 0.1 X10*3/uL (0.0-0.4); Eosinophils Percent Auto 1.7 % (0-4); Hematocrit 41.4 % (42.0-52.0); Hemoglobin 13.4 g/dl (14.0-18.0); Imm Gran Abs Auto 0.01 X10*3/uL (0.00-0.03); Imm Gran Pct Auto 0.2 % (0.0-0.4); Lymphocytes Absolute Auto 2.8 X10*3/uL (1.2-4.9); Lymphocytes Percent Auto 51.6 % (20-40); Mean Corpuscular HGB Conc 32.4 g/dl (31.0-36.0); Mean Corpuscular Hemoglobin 25.3 pg (27.0-33.0); Mean Corpuscular Volume 78.1 fL (80.0-98.0); Mean Platelet Volume 9.5 fL (9.4-12.4); Monocytes Absolute Auto 0.5 X10*3/uL (0.1-1.2); Monocytes Percent Auto 8.3 % (2-11); Neutrophils Percent Auto 37.6 % (45-73); Platelet Count 184 X10*3/uL (160-400); Red Cell Distribution Width 14.7 % (11.0-16.0); White Blood Count 5.4 X10*3/uL (4.8-10.8)
--- NOTE | 2023-08-20 02:29 | ED_ITS ---
HPI - General Adult General Chief complaint: General Medical Stated complaint: Low Blood Sugar Time Seen by Provider: 08/20/23 02:24 Source: patient Mode of arrival: ambulatory Limitations: no limitations History of Present Illness HPI narrative: Patient comes to the emergency room complaining of low blood sugar. Patient states that he is completely asymptomatic. However, his glucometer indicates that he is hypoglycemic. When patient arrived, his glucometer indicated that his glucose is 93, hours indicated 279. Or had any symptoms. Patient changed the sensor on his skin approximately 3 days ago. Related Data Previous Rx's Medication Instructions Recorded blood sugar diagnostic (FreeStyle #150 ea 08/05/21 Precision Clarence Strips) hydrocortisone 2.5 % topical cream 1 appl topical BID PRN skin 01/19/22 irritation #20 grams flash glucose scanning reader #1 ea 09/30/22 (FreeStyle Gregg 2 [place]) flash glucose sensor (FreeStyle #2 ea 09/30/22 Gregg 2 Sensor kit) omeprazole 20 mg capsule,delayed 20 mg PO DAILY 90 days #90 caps 03/02/23 release pen needle, diabetic 32 gauge x #400 ea 03/02/23 (BD Juanita 2nd Gen Pen Needle) simvastatin 20 mg tablet 20 mg PO BEDTIME #90 tabs 07/09/23 empagliflozin 25 mg tablet 25 mg PO DAILY 30 days #30 tabs 07/27/23 (Jardiance) insulin aspart See Rx Instructions subcut TID 90 07/27/23 (niacinamide)(U-100) 100 unit/mL(3 days #45 mL mL) subcutaneous pen (Fiasp FlexTouch U-100 Insulin) insulin degludec 200 unit/mL (3 18 unit (0.09 mL) subcut BEDTIME 07/27/23 mL) subcutaneous pen (Tresiba 90 days #9 mL FlexTouch U-200 insulin) metformin 1,000 mg tablet 1,000 mg PO BID #180 tabs 08/07/23 glucagon 1 mg solution for 1 mg subcut Q20M PRN hypoglycemia 08/20/23 injection (Glucagon Emergency Kit) #1 ea Allergies Allergy/AdvReac Type Severity Reaction Status Date / Time penicillin V Allergy Unknown Unknown Verified 07/27/23 08:06 Penicillins [PENICILLINS] Allergy Unknown UNKNOWN Verified 07/27/23 08:06 Sulfa (Sulfonamide Allergy Unknown UNKNOWN Verified 07/27/23 08:06 Antibiotics) [SULFA (SULFONAMIDE ANTIBIOTICS)] Review of Systems 2 Review of Systems: Constitutional : No Weight loss, No Fever, No Chills, No Night Sweats, No Fatigue, No Malaise ENT/Mouth : No Hearing loss, No Ear Pain, No Nasal Congestion, No Sinus Pain, No Hoarseness, No sore throat, No Rhinorrhea, No Swallowing Difficulty Eyes: No Eye Pain, No Swelling, No Redness, No Foreign Body, No Discharge, No Vision Changes Cardiovascular : No Chest Pain, No SOB, No Dyspnea on Exertion, No Orthopnea, No Edema, No Palpitations Respiratory : No Cough, No Sputum, No Wheezing, No Smoke Exposure, No Dyspnea Gastrointestinal : No Nausea, No Vomiting, No Diarrhea, No Constipation, No abdominal Pain, No Hematochezia, No Melena Genitourinary : no irregular bleeding, No Dysuria, No Urinary Frequency, No Hematuria, No Urinary Incontinence, No Urgency, No Flank Pain, No Urinary Flow Changes, No Hesitancy Musculoskeletal : No joint pain, No Myalgias, No Joint Swelling Skin : No Skin Lesions, No rash Neuro : No Weakness, No Numbness, No Paresthesias, No Loss of Consciousness, No Dizziness, No Headache Psych : No Anxiety/Panic, No Depression, No SI/HI/AH/VH, No Social Issues, Heme/Lymph: No Bruising, No Bleeding,No Lymphadenopathy Endocrine : No Polyuria, No Polydipsia, No Temperature Intolerance PMFSH Past Medical History Medical History Internal derangement of right shoulder Dyslipidemia Vitamin D deficiency B12 deficiency 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 Diabetes type 2, uncontrolled Surgical History Hx of appendectomy Family History Family History Mother Diabetes Social History Social History Housing: House Alcohol intake: never Patient Tobacco Use Status: Former Tobacco user Smoked in Last 30 Days: No e-Cigarette/Vaping Use: Never Used Second Hand Smoke Exposure: No Use of substances other than those prescribed or required for medical reasons: No Advance Directives: No Advance Directives Information Provided: No service: No Current occupational status: employed 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 Oriented X3. No acute distress. Eyes: Pupils equal, round and reactive to light. ENT: Pharynx normal. Neck: Normal inspection. Neck supple. No lymph nodes noted. No crepitus CVS: Normal heart rate and rhythm. Pulses normal. Normal S1 and S2 Respiratory: No respiratory distress. Breath sounds normal. No Wheezing. No rales Abdomen: Soft and nontender. No rigidity. No distention. Skin: Skin warm and dry. Normal skin color. Normal skin turgor. Extremities: No lower extremity edema. No Lacerations. No Rash Neuro: Oriented X 3. No motor deficit. No sensory deficit. Moving all extremities. No slurred speech. CN 2 through 12 grossly intact Psych: calm, cooperative, normal affect Course Course Course Narrative: -patient's glucometer and our glucometer show a significant difference in glucose reads. In about 1/2 hour, we will test but of them at the same time to compare numbers. Patient remains asymptomatic. Medical Decision Making Medical Decision Making [facility] Narrative: -we rechecked the glucose again 30 [address] after the [address]. Our glucometer indicated a blood glucose of 313, patient's glucometer 163. Our glucometers are calibrated. Patient will change his skin glucose monitor device on his glucometer at home Differential Diagnosis Differential Diagnoses: The differential diagnosis associated with the presentation includes (Hypoglycemia, glucometer malfunction) Lab Data [facility] Lab Attestation statement: I reviewed the patient's lab results. 08/20/23 02:22 08/20/23 02:22 Labs: Lab Results 08/20/23 08/20/23 08/20/23 Range/Units 02:16 02:22 03:02 WBC 5.4 (4.8-10.8) X10*3/uL RBC 5.30 (4.60-5.80) X10*6/uL Hgb 13.4 L (14.0-18.0) g/dl Hct 41.4 L (42.0-52.0) % MCV 78.1 L (80.0-98.0) fL MCH 25.3 L (27.0-33.0) pg MCHC 32.4 (31.0-36.0) g/dl RDW 14.7 (11.0-16.0) % Plt Count 184 (160-400) X10*3/uL MPV 9.5 (9.4-12.4) fL Immature Gran % (Auto) 0.2 (0.0-0.4) % Neut % (Auto) 37.6 L (45-73) % Lymph % (Auto) 51.6 H (20-40) % Dade % (Auto) 8.3 (2-11) % Eos % (Auto) 1.7 (0-4) % Baso % (Auto) 0.6 (0-2) % Lymph # (Auto) 2.8 (1.2-4.9) X10*3/uL Dade # (Auto) 0.5 (0.1-1.2) X10*3/uL Eos # (Auto) 0.1 (0.0-0.4) X10*3/uL Baso # (Auto) 0.0 (0.0-0.2) X10*3/uL Abs Immat Gran (auto) 0.01 (0.00-0.03) X10*3/uL Absolute Neuts (auto) 2.0 (2.0-8.3) x10*3/uL Absolute Nucleated RBC 0.000 (0.0-0.012) X10*3/uL Nucleated RBC % (auto) 0.0 (0.0-0.2) /100WBC Sodium 139 (135-145) mmol/L Potassium 4.0 (3.3-5.1) mmol/L Chloride 101 (96-108) mmol/L Carbon Dioxide 22 (22-29) mmol/L Anion Gap 20 (12-20) BUN 13 (9-16) mg/dL Creatinine 0.85 (0.5-1.4) mg/dL Estim Creat Clear Calc 78.0 Estimated GFR > 60 POC Glucose 279 H 313 H (60-115) mg/dL Random Glucose 287 H (60-115) mg/dL Calcium 9.7 (8.4-10.2) mg/dL Discharge Plan Discharge Clinical Impression: Diabetes mellitus, Hypoglycemia Patient Disposition: Home, Self-Care Instructions: Hypoglycemia in a Person with Diabetes (ED) Additional Instructions: Please follow-up with your primary care physician tomorrow. If you have any worsening or new symptoms, please return to the emergency room or call 911 Prescriptions: New Glucagon Emergency Kit (human) 1 mg recon soln 1 mg subcut Q20M PRN (Reason: hypoglycemia) Qty: 1 0RF Rx Instructions: until target blood sugar attained No Action (DME) FreeStyle Precision Clarence Strips Strip See Rx Instructions .Route Qty: 150 11RF Rx Instructions: As directed four times a day hydrocortisone 2.5 % cream 1 appl topical BID PRN (Reason: skin irritation) Qty: 20 0RF (DME) FreeStyle Gregg 2 [place] Misc See Rx Instructions .ROUTE .MEDSUPPLY Qty: 1 0RF Rx Instructions: check three times a day (DME) FreeStyle Gregg 2 Sensor Kit See Rx Instructions .ROUTE .MEDSUPPLY Qty: 2 11RF Rx Instructions: Check blood sugars simvastatin 20 mg tablet 20 mg PO BEDTIME Qty: 90 1RF metformin 1,000 mg tablet 1,000 mg PO BID Qty: 180 2RF (DME) pen needle, diabetic [BD Juanita 2nd Gen Pen Needle] 32 gauge x 5/32 needle See Rx Instructions .MEDSUPPLY Qty: 400 4RF Rx Instructions: 5 times a day omeprazole 20 mg capsule,delayed release(DR/EC) 20 mg PO DAILY 90 Days Qty: 90 3RF Jardiance 25 mg tablet 25 mg PO DAILY 30 Days Qty: 30 6RF Fiasp FlexTouch U-100 Insulin 100 unit/mL (3 mL) insulin pen See Rx Instructions subcut TID 90 Days Qty: 45 2RF Rx Instructions: 10 units with breakfast, 8 units with lunch and 14 units with dinner subcut 3 times a day; Tresiba FlexTouch U-200 200 unit/mL (3 mL) insulin pen 18 unit subcut BEDTIME 90 Days Qty: 9 3RF
[2023-08-20 02:31] VITALS: BP 111/58; PULSE 70; RESP 17; O2SAT 97
[2023-08-20 02:42] LABS: Anion Gap 20 (12-20); Blood Urea Nitrogen 13 mg/dL (9-16); Calcium 9.7 mg/dL (8.4-10.2); Carbon Dioxide 22 mmol/L (22-29); Chloride 101 mmol/L (96-108); Estimated Glomerular Filt Rate > 60; Glucose Random 287 mg/dL (60-115); Sodium 139 mmol/L (135-145)
[2023-08-20 03:07] LABS: Glucose, Whole Blood 313 mg/dL (60-115)
--- NOTE | 2023-08-20 03:39 | PC.NURSE ---
Reviewed discharge instructions with pt, pt verbalized understanding. Notified NAVID Potts.
== END 2023-08-20 03:43 | disposition home or self-care (01) ==
PROVIDERS: Emergency Provider Emergency Medicine; PCP Internal Medicine
DX: E11.649 Type 2 diabetes mellitus with hypoglycemia without coma (principal); Z79.899 Other long term (current) drug therapy; Z87.891 Personal history of nicotine dependence; Z79.4 Long term (current) use of insulin
CPT/HCPCS: 36415; 80048; 82947; 85025; 99283; 99284

== ENCOUNTER 2023-09-03 08:36 | Outpatient (AMB) | payer OTHER, SELFPAY ==
--- NOTE | 2023-09-03 09:09 | A.OFFVIS_ITS ---
Intake Intake Visit Reasons: DM with Gregg Carpentry Specialist Required: No Accompanied by: Self / Same As Patient Allergies penicillin V Allergy (Unknown, Verified 07/27/23 08:06) Unknown Penicillins [PENICILLINS] Allergy (Unknown, Verified 07/27/23 08:06) UNKNOWN Sulfa (Sulfonamide Antibiotics) [SULFA (SULFONAMIDE ANTIBIOTICS)] Allergy (Unknown, Verified 07/27/23 08:06) UNKNOWN HPI Comprehensive Diabetes Asmnt Most Recent Diabetes Results: Microalb/Creat Ratio TNP 07/19/23 Cholesterol 138 mg/dL 12/05/22 HDL Cholesterol 36 mg/dL 12/05/22 Triglycerides 110 mg/dL 12/05/22 Creatinine 0.85 mg/dL (0.5-1.4) 08/20/23 Blood Urea Nitrogen 13 mg/dL (9-16) 08/20/23 Sodium 139 mmol/L (135-145) 08/20/23 Potassium 4.0 mmol/L (3.3-5.1) 08/20/23 Chloride 101 mmol/L (96-108) 08/20/23 Carbon Dioxide 22 mmol/L (22-29) 08/20/23 Calcium 9.7 mg/dL (8.4-10.2) 08/20/23 AST 17 U/L (5-37) 07/19/23 ALT 15 U/L (0-40) 07/19/23 Total Protein 7.4 g/dL (6.5-8.0) 07/19/23 Albumin 4.0 g/dL (3.5-5.0) 07[facility]19/23 [facility] Medical History Internal derangement of right shoulder Dyslipidemia Vitamin D deficiency B12 deficiency jail (current) use of insulin Diabetes type 2, uncontrolled Surgical History Hx of appendectomy Family History Mother Diabetes Social History Housing: House Alcohol intake: never Patient Tobacco Use Status: Former Tobacco user e-Cigarette/Vaping Use: Never Used Second Hand Smoke Exposure: No service: No Current occupational status: employed 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 2= needs review? 3= comprehend keep point? 4= demonstrates understanding/ competent? NC= Not Covered Topics Learning Objective: Initial visit Initial or post srvc Initial or post srvc Initial or post srvc Initial or post srvc Initial or post srvc Post srvc Comments Pre Edu-assessment/plan Outcome or reassess Outcome or reassess Outcome or reassess Outcome or reassess Outcome or reassess Outcome or reassess Diabetes pathophysiology 2 3 Healthy eating 2 3 Being active 2 3 Taking medication 2 3 Monitoring glucose 2 Acute complication 2 Chronic complicated 2 Lifestyle and healthy coping 1 Diabetes distress in support 2 ?Diabetes pathophysiology: ?Defined diabetes med identify own type of diabetes; list 3 options for treating diabetes Healthy eating: ?Described effect of type, amount and ?timing of food on blood glucose; list 3 methods for planning meal Being active: ?State effect of exercise on blood glucose level Taking medication: ?State effect of diabetes medications on diabetes; name diabetes medications taking, action and side effects Monitoring glucose: ?Identify recommended blood glucose targets and personal target Acute complication: ?List symptoms and treatment of hyper and hypoglycemia, DKA, sick day guidelines and guidelines for severe weather or situations of crisis and diabetes supply manage Chronic complication: ?To find the relationship of blood glucose levels to long- term complications of diabetes in screening and preventative measures Lifestyle and healthy coping: ?Described lifestyle and healthy coping strategies to rule out diabetes self-management Diabetes to stress and support: ?Recognize Diabetes to stress and be able to identified support options Learning objectives: The patient was provided with verbal and written education on the following topics as outlined below. The patient met all learning objectives and was able to verbalize understanding and provide teach back of education topics discussed . The patient was provided with the opportunity to ask questions and all questions were answered. Patient Assessment Assess patient education level/literacy/barriers Patient questions/concerns, patient with diagnosed with type 2 diabetes approximately 2004. Patient's last A1c on 07/19/2023 11.2% Patient is currently taking Tresiba 20 units Faisp before meals, 12 units for breakfast, 16 units for lunch, 16-18 units at supper Metformin 2000 mg b.i.d. Jardiance 25 mg daily patient using freestyle Gregg 2 patient above target 55% patient at target 45% patient below target 0% average glucose for the past 2 weeks 198 mg/dL patient has several episodes of hypoglycemia, 1 on 09/02/2032, patient reports he was raking leaves, his brought him juice to drink. After the juice he went into the house scanned the sensor glucose was greater than 250 mg/dL. Patient took Fiasp 12 units, did not eat. left house to go shopping while in the car began to experience symptoms of hypoglycemia. patient treat hypoglycemia with a banana and went to [facility] and treated with Doughnut Topics covered in today?s session included: Medications (If applicable) ? Name of medication? Dosing/administration instructions? Mechanism of action? Potential side effects? Potential adverse reaction and appropriate treatment? Review onset, peak, duration Assess for concerns re: insurance coverage, cost, barriers to compliance Insulin/Injectables (If applicable) ? Storage/care of insulin? Injection sites? Site rotation? Onset, peak, duration ? Drawing up insulin? Injecting insulin/other injectables? Sharps disposal Continuous blood glucose monitoring (if applicable) Hypoglycemia and Hyperglycemia ? Signs and symptoms? Causes? Treatment? Preventing hypoglycemia? When to seek medical attention ?Blood glucose targets and how you feel when your blood glucose is in and out of your target ranges. ?Monitoring and knowing your A1C. ?What can make blood glucose go up and down and preventing high and low blood glucose. ?Review of blood sugar targets in expected goal range and outside of expected goal range. ?Problem solving and preventing hyper/hypoglycemia. ?Sick day management of diabetes. ?Using blood sugar results in decision making process in managing diabetes. ?Patient was receptive to information provided and participated in the discussion. Asked?appropriate questions and demonstrated good understanding of the topics discussed.? ? Educational Materials: The patient was provided with the following written educational materials: Target Goal, Rule of 15s handout Smart Goal Assessment:? patient will reduce portions of carbohydrates at suppertime ? Pt met goal more than 25% New Smart Goal: patient will use rule of 15 is to treat low blood glucose Patient Response to instructions: Comprehension of Instruction: good Readiness to make changes:? pre contemplation How confident they feel about making changes: fair Patient Instructions: patient will follow-up with Diabetes Education nurse in 5 months Coding Level of Care Code Est Pt Level 1 (41386) Diagnoses Diabetes type 2, uncontrolled E11.65
== END 2023-09-03 09:10 | disposition home or self-care (01) ==
PROVIDERS: PCP Internal Medicine; Visit Provider Registered Nurse Diabetes Educator
DX: E11.65 Type 2 diabetes mellitus with hyperglycemia (principal)

== ENCOUNTER → 2023-09-03 08:36 | Outpatient (BNVA) | payer OTHER, SELFPAY | PROVIDERS: PCP Internal Medicine; Visit Provider Registered Nurse Diabetes Educator | DX: E11.65 Type 2 diabetes mellitus with hyperglycemia (principal) | CPT/HCPCS: 99211 ==

== ENCOUNTER 2023-10-02 08:10 | Outpatient (AMB) | payer OTHER, SELFPAY ==
[2023-10-02 09:15] VITALS: BP 120/72; PULSE 106; TEMP 38.3; O2SAT 95; BMI 22.0
--- NOTE | 2023-10-02 09:15 | AM.OFFWIN_ITS ---
Intake Vital Signs 10/02/23 09:15 Height 5 ft 5 in Weight 59.874 kg BMI 22.0 BP 120/72 Blood Pressure Location Lt brachial Position Sitting Pulse 106 H Pulse Source Pulse Oximeter Temp 100.9 F H Temp Source Temporal Artery Scan Pulse Oximetry (%) 95 Oxygen Delivery Method Room Air Intake Visit Reasons: EP Sore Throat, Cough (masked) with Intake Note: pt is here for c/o sore throat and cough Patient Tobacco Use Status: Former Tobacco user Allergies penicillin V Allergy (Unknown, Verified 10/02/23 09:15) Unknown Penicillins [PENICILLINS] Allergy (Unknown, Verified 10/02/23 09:15) UNKNOWN Sulfa (Sulfonamide Antibiotics) [SULFA (SULFONAMIDE ANTIBIOTICS)] Allergy (Unknown, Verified 10/02/23 09:15) UNKNOWN Do you need a note to return to daycare/school/sports/work: Yes HPI HPI Comments History of Present Illness Details [id number] 58-year-old male presents to the clinic for sick visit patient complaining of dry cough, fatigue, malaise, myalgias, sore throat ongoing for the past week, here with him with same symptoms. Symptoms seem to not be improving. Denies fevers, chills, chest pain, shortness of breath, nausea, vomiting, abdominal pain, headache, vision changes, dizziness and weakness. Physical exam benign. Patient noted to be febrile here in the department, he states he has Tylenol at home and will take the soon as he gets home. This is likely viral illness versus flu versus COVID versus RSV versus bronchitis. Unlikely pulmonary embolism, pneumonia, acute respiratory distress, peritonsillar retropharyngeal abscess, epiglottitis, threat to airway, strep pharyngitis. Plan- viral testing . Will discharge home with prednisone, albuterol. Educated patient on diagnosis and treatment plan, answered all question, patient verbalizes understanding. At this time patient will be discharged home, advised to return with new or worsening symptoms. Educated on worrisome signs and symptoms and when to return. At this time I feel comfortable discharge home. 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 Cognitive needs: No Hearing needs: No Vision needs: Yes (Glasses) Review of Systems Const Details: Constitutional : No Weight loss, No Fever, No Chills, + Fatigue, + Malaise ENT/Mouth : + sore throat, No Rhinorrhea Eyes: No Eye Pain, No Swelling, No Redness Cardiovascular : No Chest Pain, No SOB, No Dyspnea on Exertion, No Orthopnea, No Edema, No Palpitations Respiratory : + Cough, No Sputum, No Wheezing Gastrointestinal : No Nausea, No Vomiting, No Diarrhea, No Constipation, No abdominal Pain, No Hematochezia, No Melena Genitourinary : No Dysuria, No Urinary Frequency, No Hematuria, Musculoskeletal : No joint pain, + Myalgias, No Joint Swelling Skin : No Skin Lesions, No rash Neuro : No Weakness, No Numbness, No Dizziness, No Headache Psych : No Anxiety/Panic, No Depression All other systems reviewed and are negative All systems reviewed & are unremarkable except as noted in HPI and below Physical Exam Vital Signs: Last Vital Signs Temp 100.9 F H 10/02/23 09:15 Pulse 106 H 10/02/23 09:15 BP 120/72 10/02/23 09:15 Pulse Ox 95 10/02/23 09:15 Oxygen Delivery Method Room Air 10/02/23 09:15 BMI result Body Mass Index 22.0 febrile. tachycardic Appearance: Alert.? Oriented X3.? No acute distress.? Head: Normocephalic, atraumatic, no step-offs or deformities Eyes: Pupils equal, round and reactive to light.? ENT: Pharynx normal.? Neck: Normal inspection.? Neck supple.? CVS: Normal heart rate and rhythm.? Pulses normal.? Respiratory: No respiratory distress.? Breath sounds normal.? Abdomen: Soft and nontender.? Skin: Skin warm and dry.? Normal skin color.? Normal skin turgor.? Extremities: No lower extremity edema.? No calf ttp. 5/5 strength to bilateral upper and lower extremities Neuro: Oriented X 3.? No motor deficit.? No sensory deficit. CN 2-12 intact Results AMB Rapid Strep AMB Rapid Strep Negative Last Edit by Hemanth Portillo CMA on 10/02/23 09 :38 Results Reviewed Results Reviewed: Laboratory Last Values Strep Scn Rapid Clinic Negative 10/02/23 09:37 Assessment & Plan Assessment & Plan (1) Viral illness: Code(s): B34.9 - Viral infection, unspecified (2) Fever: Code(s): R50.9 - Fever, unspecified Plan Take your medications as prescribed. If you were prescribed antibiotics today, it is important that you take your medication to their entirety, do not skip any doses, do not finish them early. Follow-up with your primary care provider this week. Return to the emergency department with new or worsening symptoms. Such as fevers, chills, chest pain, shortness of breath, nausea, vomiting, dizziness, headache, vision changes, lethargy In case of emergency call 911 Orders: Orders SARS-CoV2/FLU/RSV Today B34.9 - Viral infection, unspecified AMB Rapid Strep Screen Today Z13.9 - Encounter for screening, unspecified Medications: New albuterol sulfate 90 mcg/actuation 2 puffs inhalation Q6H PRN 6.7 grams 0RF shortness of breath or wheezing prednisone 40 mg (2 x 20 mg) PO DAILY 10 tabs 0RF 5 days Coding Level of Care Code Est Pt Level 3 (35041) Diagnoses Viral illness B34.9 Fever R50.9
== END 2023-10-02 09:49 | disposition home or self-care (01) ==
PROVIDERS: PCP Internal Medicine; Visit Provider Physician Assistant
DX: B34.9 Viral infection, unspecified (principal); R50.9 Fever, unspecified; J02.9 Acute pharyngitis, unspecified
CPT/HCPCS: 87880; 99213

== ENCOUNTER 2023-10-02 09:37 | Outpatient (REF) | payer OTHER, SELFPAY ==
[2023-10-02 14:02] LABS: Influenza A PCR POSITIVE (Negative); Influenza B PCR NEGATIVE (Negative); Resp Syncy Virus RNA Qual PCR NEGATIVE (Negative); SARS COV2 PCR INHOUSE NEGATIVE (Negative)
== END 2023-10-02 09:38 | disposition home or self-care (01) ==
LOC: HO.LAB 09:37
PROVIDERS: Visit Provider Physician Assistant
DX: Z11.52 Encounter for screening for COVID-19 (principal); B34.9 Viral infection, unspecified
CPT/HCPCS: 0241U

== ENCOUNTER 2023-11-09 12:02 | Outpatient (AMB) | payer OTHER, SELFPAY ==
--- NOTE | 2023-11-09 12:04 | MHC.PC.OV ---
Vital Signs 11/09/23 12:08 Height 5 ft 5 in Weight 143 lb 8 oz BMI 23.9 BP 138/62 Blood Pressure Location Rt brachial Position Sitting Pulse 101 H Pulse Source Pulse Oximeter Pulse Oximetry (%) 95 Oxygen Delivery Method Room Air Intake Visit Reasons: [place] follow up/Sore throat Allergies penicillin V Allergy (Unknown, Verified 11/09/23 12:04) Unknown Penicillins [PENICILLINS] Allergy (Unknown, Verified 11/09/23 12:04) UNKNOWN Sulfa (Sulfonamide Antibiotics) [SULFA (SULFONAMIDE ANTIBIOTICS)] Allergy (Unknown, Verified 11/09/23 12:04) UNKNOWN Medication List - Last Reconciled 11/09/23 by Marisela Wylie MD albuterol sulfate 90 mcg/actuation 2 puffs inhalation Q6H PRN blood sugar diagnostic (Activaided OrthoticsStyle Precision Clarence Strips) As directed four times a day empagliflozin (Jardiance) 25 mg PO DAILY 30 days flash glucose scanning reader (Activaided OrthoticsStyle Gregg 2 Debary) check three times a day flash glucose sensor (Activaided OrthoticsStyle Gregg 2 Sensor kit) USE DIRECTED TO CHECK BLOOD SUGAR. CHANGE EVERY 14 DAYS. glucagon (Glucagon Emergency Kit) 1 mg subcut Q20M PRN insulin aspart (niacinamide) 100 unit/mL (3 mL) (Fiasp FlexTouch U-100 Insulin) 10 units with breakfast, 8 units with lunch and 14 units with dinner subcut 3 times a day; 90 days insulin degludec (Tresiba FlexTouch U-200 insulin) 18 units (0.09 mL) subcut BEDTIME 90 days metformin 1,000 mg PO BID omeprazole 20 mg PO DAILY 90 days pen needle, diabetic (BD Juanita 2nd Gen Pen Needle) 5 times a day simvastatin 20 mg PO BEDTIME Tobacco use date assessed: 11/09/23 Dental Screening Dental Screen Date: 11/09/23 Did you have a dental visit in the last 12 months?: No Did you have a dental problem in the last 6 months where you did not have access to dental care?: No Was dental information given to patient?: Patient has dentist HPI [place] follow up/Sore throat HPI Details Patient is a 58-year-old gentleman came in today to be evaluated for cough which is dry Patient says that couple of months ago he was diagnosed with strep infection he was treated at walk-in clinic after that he started having cough which is dry but it is improving I see that patient also have chronic GERD and uncontrolled diabetes Currently he is seeing Dr. 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 John Leone, Liliana Sauer, Bebeto Lehman and colleagues, with an educational nilesh from [employer]. Review of Systems Const Denies chills and Denies fever(s) ENT Denies epistaxis and Denies nasal discharge Card Denies chest pain Resp Denies chest congestion and Denies hemoptysis GI Denies diarrhea and Denies nausea Skin/Breast Denies rash Neuro Reports no additional complaints Psych Reports no additional complaints Endo Reports no additional complaints Physical exam (Primary Care) Vital Signs: Last Vital Signs Pulse 101 H 11/09/23 12:08 BP 138/62 11/09/23 12:08 Pulse Ox 95 11/09/23 12:08 Oxygen Delivery Method Room Air 11/09/23 12:08 BMI result Body Mass Index 23.9 Tobacco/Smoking Status: Tobacco use Status Tobacco use date assessed 11/09/23 11/09/23 12:06 Patient Tobacco Use Status Former Tobacco user 11/09/23 12:06 e-Cigarette/Vaping Use Never Used 11/09/23 12:06 Thrive Assessment: Date of Thrive Assessment Date Thrive assessed 03/02/23 11/09/23 12:06 Const General: cooperative, comfortable and no acute distress Orientation/consciousness: patient oriented x3 HENMT Head: Yes normocephalic Eyes General: appearance normal, both eyes and all related structures Neck Neck: Yes supple Resp Effort & Inspection: normal respiratory effort, no cough and no stridor Cardio Rhythm: regular rhythm Heart sounds: S1 normal heart sound present and S2 normal heart sound present Skin General skin exam: turgor normal Neuro General: patient oriented x3, tone normal and moves all extremities Extrem Right lower extremity: no edema Left lower extremity: no edema Immunizations pneumoc 20-shellie conj-dip cr(PF) 0.5 mL IM syringe Performing Provider: Marisela Wylie MD Performing Location: [facility] Administered by: Hemanth Portillo CMA on 11/09/23 13:53 Dose Route Admin Location Dispensed Lot Number Expiration Date NDC Paper Sorter And Counter 0.5 mL IM Left Deltoid 0.5 mL [id number] 12/27/24 [id number] [email or web address] VIS Given Date VIS Provided VIS Publication Date 11/09/23 Single Vaccine 21 Eligibility Eligibility Date Funding Source Not [facility] Eligible 11/09/23 Private Assessment and Plan Assessment & Plan (1) Persistent dry cough: Code(s): R05.3 - Chronic cough (2) Diabetes type 2, uncontrolled: Code(s): E11.65 - Type 2 diabetes mellitus with hyperglycemia Qualifiers: Glycemic state: with hyperglycemia Qualified Code(s): E11.65 - Type 2 diabetes mellitus with hyperglycemia (3) 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: Code(s): Z79.4 - 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9 - Vitamin D deficiency, unspecified (7) B12 deficiency: Code(s): E53.8 - Deficiency of other specified B group vitamins (8) Lipid disorder: Code(s): E78.9 - Disorder of lipoprotein metabolism, unspecified Plan Patient is a 58-year-old gentleman came in today to be evaluated for cough which is dry Patient says that couple of months ago he was diagnosed with strep infection he was treated at walk-in clinic after that he started having cough which is dry but it is improving I see that patient also have chronic GERD and uncontrolled diabetes Currently he is seeing Dr. Sherwood at [facility] for the management of diabetes He is also taking simvastatin for lipid control Omeprazole has not been filled since February of last year I have stopped omeprazole and I have sent pantoprazole 40 mg that patient is to start taking daily Pneumonia vaccine was given today Patient is to return in January for physical exam Orders: Orders Microalbumin, Random (w Creat) Today E11.40 - Type 2 diabetes mellitus with diabetic neuropathy, unspecified, E11.65 - Type 2 diabetes mellitus with hyperglycemia, E53.8 - Deficiency of other specified B group vitamins, E55.9 - Vitamin D deficiency, unspecified, E78.9 - Disorder of lipoprotein metabolism, unspecified, K21.9 - Gastro-esophageal reflux disease without esophagitis, Z79.4 - 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 LDL Cholesterol Direct Today E11.40 - Type 2 diabetes mellitus with diabetic neuropathy, unspecified, E11.65 - Type 2 diabetes mellitus with hyperglycemia, E53.8 - Deficiency of other specified B group vitamins, E55.9 - Vitamin D deficiency, unspecified, E78.9 - Disorder of lipoprotein metabolism, unspecified, K21.9 - Gastro-esophageal reflux disease without esophagitis, Z79.4 - FDC (current) use of insulin Pneumococcal 20 Immunization Today Z23 - Encounter for immunization Hemoglobin A1c Today E11.40 - Type 2 diabetes mellitus with diabetic neuropathy, unspecified, E11.65 - Type 2 diabetes mellitus with hyperglycemia, E53.8 - Deficiency of other specified B group vitamins, E55.9 - Vitamin D deficiency, unspecified, E78.9 - Disorder of lipoprotein metabolism, unspecified, K21.9 - Gastro-esophageal reflux disease without esophagitis, Z79.4 - FDC (current) use of insulin Complete Blood Count Auto Diff Today E11.40 - Type 2 diabetes mellitus with diabetic neuropathy, unspecified, E11.65 - Type 2 diabetes mellitus with hyperglycemia, E53.8 - Deficiency of other specified B group vitamins, E55.9 - Vitamin D deficiency, unspecified, E78.9 - Disorder of lipoprotein metabolism, unspecified, K21.9 - Gastro-esophageal reflux disease without esophagitis, Z79.4 - FDC (current) use of insulin Medications: New pantoprazole 40 mg PO DAILY 90 tabs 0RF Discontinued omeprazole Discontinued Reason: Doctor's Order 20 mg PO DAILY 90 days 90 caps 3RF K21.9 - Gastro-esophageal reflux disease without esophagitis Coding Level of Care Code Est Pt Level 4 (57505) Diagnoses Persistent dry cough R05.3 Uncontrolled type 2 diabetes mellitus with hyperglycemia E11.65 Glycemic state: with hyperglycemia FDC (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
[2023-11-09 12:08] VITALS: BP 138/62; PULSE 101; O2SAT 95; BMI 23.9
== END 2023-11-09 12:47 | disposition home or self-care (01) ==
PROVIDERS: PCP Internal Medicine; Visit Provider Internal Medicine
DX: E11.65 Type 2 diabetes mellitus with hyperglycemia (principal); Z79.4 Long term (current) use of insulin; R05.3 Chronic cough; Z23 Encounter for immunization; K21.9 Gastro-esophageal reflux disease without esophagitis; E55.9 Vitamin D deficiency, unspecified; E53.8 Deficiency of other specified B group vitamins; E78.9 Disorder of lipoprotein metabolism, unspecified
CPT/HCPCS: 90471; 90677; 99214

== ENCOUNTER 2023-11-09 12:31 | Outpatient (REF) | payer OTHER, SELFPAY ==
[2023-11-09 16:07] LABS: MANUAL DIFF FLAG NO
[2023-11-09 16:24] LABS: Basophils Percent Auto 0.4 % (0-2); Eosinophils Absolute Auto 0.1 X10*3/uL (0.0-0.4); Hematocrit 43.6 % (42.0-52.0); Hemoglobin 13.6 g/dl (14.0-18.0); Imm Gran Abs Auto 0.02 X10*3/uL (0.00-0.03); Imm Gran Pct Auto 0.3 % (0.0-0.4); Lymphocytes Absolute Auto 3.2 X10*3/uL (1.2-4.9); Lymphocytes Percent Auto 45.8 % (20-40); Mean Corpuscular HGB Conc 31.2 g/dl (31.0-36.0); Mean Corpuscular Hemoglobin 24.2 pg (27.0-33.0); Mean Corpuscular Volume 77.7 fL (80.0-98.0); Mean Platelet Volume 10.8 fL (9.4-12.4); Monocytes Absolute Auto 0.6 X10*3/uL (0.1-1.2); Neutrophils Absolute Auto 3.1 x10*3/uL (2.0-8.3); Neutrophils Percent Auto 44.5 % (45-73); Platelet Count 225 X10*3/uL (160-400); Red Blood Count 5.61 X10*6/uL (4.60-5.80); Red Cell Distribution Width 16.1 % (11.0-16.0)
[2023-11-09 16:29] LABS: Estimated Average Glucose 217 mg/dL; Hemoglobin A1c % 9.2 % (<6.0)
[2023-11-09 18:35] LABS: Creatinine Urine 27.17 mg/dL; Microalbumin Urine < 5.0 mg/L
[2023-11-09 18:35] LABS: Alanine Aminotransferase 22 U/L (0-40); Albumin Level 4.3 g/dL (3.5-5.0); Alkaline Phosphatase 66 U/L (39-117); Anion Gap 14 (12-20); Aspartate Amino Transferase 20 U/L (5-37); Bilirubin Total 0.3 mg/dL (0.0-1.0); Blood Urea Nitrogen 16 mg/dL (9-16); Calcium 9.9 mg/dL (8.4-10.2); Carbon Dioxide 24 mmol/L (22-29); Chloride 105 mmol/L (96-108); Estimated Glomerular Filt Rate > 60; Glucose Random 275 mg/dL (60-115); Potassium 4.2 mmol/L (3.3-5.1); Sodium 139 mmol/L (135-145); Total Protein 7.9 g/dL (6.5-8.0)
[2023-11-10 16:28] LABS: LDL Cholesterol Direct 79 mg/dL (<100)
== END 2023-11-09 12:32 | disposition home or self-care (01) ==
LOC: HO.HMGCLDS 12:31
PROVIDERS: PCP Internal Medicine; Visit Provider Internal Medicine
DX: E11.65 Type 2 diabetes mellitus with hyperglycemia (principal); E11.40 Type 2 diabetes mellitus with diabetic neuropathy, unspecified; K21.9 Gastro-esophageal reflux disease without esophagitis; E55.9 Vitamin D deficiency, unspecified; E53.8 Deficiency of other specified B group vitamins; E78.9 Disorder of lipoprotein metabolism, unspecified; Z79.4 Long term (current) use of insulin
CPT/HCPCS: 36415; 80053; 82043; 82570; 83036; 83721; 85025

== ENCOUNTER 2023-12-03 09:04 | Outpatient (AMB) | payer OTHER, SELFPAY ==
--- NOTE | 2023-12-03 09:06 | MHC.OFFVIS ---
Intake Vital Signs 12/03/23 09:10 Height 5 ft 5 in Weight 145 lb 15.136 oz BMI 24.3 BP 100/54 L Blood Pressure Location Lt brachial Position Sitting Pulse 83 Pulse Source Pulse Oximeter Intake Visit Reasons: DM w/Gregg-confirmed Intake Note: Patient present today to follow up on Type 2 Diabetes Mellitus. 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 Past medical history: DM 2 Hyperlipidemia iron deficiency anemia B12 deficiency Micro and macrovascular complications: none known. Diabetes medications: Tresiba 20 units at bedtime, metformin 1000 twice a day . Jardiance 25 mg QD Trulicity 3 weekly not taking because of nausea Fiasp 14 units with breakfast, 14 units lunch and 16 units with dinner. He is taking the Fiasp after eating Continuous glucose monitoring: Past 2 weeks C GM is active 67% with an average blood glucose of 1826, GM I 7.7%. Patient has 0% low glucose from 54-69. Glucose in target range of 70-180, 53%. 47% above target range. Patient has a pattern of significant postprandial hyperglycemia. Symptoms reported: denies numbness, tingling, cramping in lower extremities Hypoglycemia: rare . 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 Ophthalmology evaluation: appt Aug 2023 Other specialists: none Laboratory Tests 01/05/22 01/09/22 01/09/22 08:56 07:50 07:55 Creatinine 0.88 Estimated GFR > 60 Hgb A1c (Clinic) 8.0 H Hemoglobin A1c % Triglycerides 158 Cholesterol 139 LDL Cholesterol Di rect LDL Cholesterol, C alc 72 HDL Cholesterol 36 D Microalb/Creat Rat io TNP 01/09/22 01/09/22 07:55 07:55 Creatinine Estimated GFR Hgb A1c (Clinic) Hemoglobin A1c % 8.1 Triglycerides Cholesterol LDL Cholesterol Di rect 84 LDL Cholesterol, C alc HDL Cholesterol Microalb/Creat Rat io PFSH Medical History Internal derangement of right shoulder Dyslipidemia Vitamin D deficiency 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 deficiency 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 Absence of acromegalic features. Neck exam reveals nl size thyroid about 15 gms. No thyroid nodules palpable. No carotid bruits present. Lungs CTA. Heart S1 S2, Reg R/R. No M/R/ G. Skin exam reveals absence of vitiligo or acanthosis nigricans. Abdominal exam reveals Soft NT/ND with NA BS. No organomegaly present. Neck Other: . Extrem Other: Visual exam of foot performed. No ulcerations or open lesions. No onchomycosis, no callouses.Pulses 2 + distally Sensation intact to monofilament exam. Vibratory sensation sensed is intact with 128 Hz tuning fork Assessment & Plan Assessment & Plan (1) Diabetes type 2, uncontrolled: Code(s): E11.65 - Type 2 diabetes mellitus with hyperglycemia Qualifiers: Glycemic state: with hyperglycemia Qualified Code(s): E11.65 - Type 2 diabetes mellitus with hyperglycemia Plan: This 58-year-old male with history of type 2 diabetes being treated with metformin, Trulicity, Jardiance and basal-bolus insulin with fair glycemic control with microvascular complications namely neuropathy. The plan is to start Mounjaro 2.5 mg . Patient was previously intolerant of Trulicity. Went over side effects of Mounjaro including but not limited to nausea, vomiting rare risk of pancreatitis. Told patient to report any hypoglycemia for reduction of insulin. 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 Explained correlation of poor glycemic control the development and progression of complications Medications: New tirzepatide (Mounjaro) 2.5 mg (0.5 mL) subcut QWEEK 4 weeks 2 mL 0RF Coding Level of Care Code Est Pt Level 4 (57015) Diagnoses Uncontrolled type 2 diabetes mellitus with hyperglycemia E11.65 Glycemic state: with hyperglycemia
[2023-12-03 09:10] VITALS: BP 100/54; PULSE 83; BMI 24.3
[2023-12-03 09:20] LABS: Glucose, Whole Blood 223 mg/dL (60-115)
== END 2023-12-03 09:24 | disposition home or self-care (01) ==
PROVIDERS: PCP Internal Medicine; Visit Provider Internal Medicine Endocrinology, Diabetes & Metabolism
DX: E11.65 Type 2 diabetes mellitus with hyperglycemia (principal)
CPT/HCPCS: 99214

== ENCOUNTER → 2023-12-03 09:04 | Outpatient (BNVA) | payer OTHER, SELFPAY | PROVIDERS: PCP Internal Medicine; Visit Provider Internal Medicine Endocrinology, Diabetes & Metabolism | DX: E11.65 Type 2 diabetes mellitus with hyperglycemia (principal); Z79.4 Long term (current) use of insulin | CPT/HCPCS: 82947; 99212 ==

== ENCOUNTER 2024-02-05 09:28 | Outpatient (AMB) | payer OTHER, SELFPAY ==
[2024-02-05 09:36] VITALS: BP 100/58; PULSE 78; O2SAT 98; BMI 23.5
--- NOTE | 2024-02-05 09:36 | MHC.PC.OV ---
Vital Signs 02/05/24 09:36 Height 5 ft 5 in Weight 141 lb BMI 23.5 BP 100/58 L Blood Pressure Location Lt brachial Position Sitting Pulse 78 Pulse Source Pulse Oximeter Pulse Oximetry (%) 98 Oxygen Delivery Method Room Air Intake Visit Reasons: Annual PE Allergies penicillin V Allergy (Unknown, Verified 02/05/24 09:38) Unknown Penicillins [PENICILLINS] Allergy (Unknown, Verified 02/05/24 09:38) UNKNOWN Sulfa (Sulfonamide Antibiotics) [SULFA (SULFONAMIDE ANTIBIOTICS)] Allergy (Unknown, Verified 02/05/24 09:38) UNKNOWN Medication List - Last Reconciled 02/05/24 by Marisela Wylie MD albuterol sulfate 90 mcg/actuation 2 puffs inhalation Q6H PRN blood sugar diagnostic (FreeStyle Precision Clarence Strips) As directed four times a day empagliflozin (Jardiance) 25 mg PO DAILY 30 days flash glucose scanning reader (TheranosStyle Gregg 2 [place]) check three times a day flash glucose sensor (FreeStyle Gregg 2 Sensor kit) USE DIRECTED TO CHECK BLOOD SUGAR. CHANGE EVERY 14 DAYS. glucagon (Glucagon Emergency Kit) 1 mg subcut Q20M PRN insulin aspart (niacinamide) 100 unit/mL (3 mL) (Fiasp FlexTouch U-100 Insulin) 10 units with breakfast, 8 units with lunch and 14 units with dinner subcut 3 times a day; 90 days insulin degludec (Tresiba FlexTouch U-200 insulin) 18 units (0.09 mL) subcut BEDTIME 90 days metformin 1,000 mg PO BID pantoprazole 40 mg PO DAILY pen needle, diabetic (BD Juanita 2nd Gen Pen Needle) 5 times a day simvastatin 20 mg PO BEDTIME tirzepatide (Mounjaro) 2.5 mg (0.5 mL) subcut QWEEK 4 weeks Tobacco use date assessed: 02/05/24 Dental Screening Dental Screen Date: 02/05/24 Did you have a dental visit in the last 12 months?: Yes Did you have a dental problem in the last 6 months where you did not have access to dental care?: No Was dental information given to patient?: Patient has dentist HPI Annual PE HPI Details Patient is a 58-year-old gentleman came in today for physical examination He is seeing Dr. Sherwood endocrinology [facility] for the management of diabetes and high cholesterol Only medication from primary care office is pantoprazole for chronic GERD He had labs in October his hemoglobin A1c is 9.2 Colonoscopy was in 2019 [facility] Medical History Internal derangement of right shoulder Dyslipidemia Vitamin D deficiency B12 deficiency [facility] (current) use of insulin Diabetes type 2, uncontrolled Surgical History Hx of appendectomy Family History Mother Diabetes Social History Housing: House Alcohol intake: never Patient Tobacco Use Status: Former Tobacco user e-Cigarette/Vaping Use: Never Used Second Hand Smoke Exposure: No service: No Current occupational status: employed 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 1. Little interest or pleasure in doing things: not at all 2. Feeling down, depressed, or hopeless: not at all 3. Trouble falling or staying asleep, or sleeping too much: not at all 4. Feeling tired or having little energy: not at all 5. Poor appetite or overeating: not at all 6. Feeling bad about yourself - or that you are a failure or have let yourself or your family down: not at all 7. Trouble concentrating on things, such as reading the newspaper or watching television: not at all 8. Moving or speaking so slowly that other people could have noticed. Or the opposite - being so fidgety or restless that you have been moving around a lot more than usual: not at all 9. Thoughts that you would be better off or of hurting yourself in some way: not at all Total score: 0 Depression Screening Interpretation: Negative Depression Screening Done: Yes 03327 - PHQ-9 Billing: Yes Source: Developed by Drs. John Leone, Liliana Sauer, Bebeto Lehman and colleagues, with an educational nilesh from [employer]. Thrive Questionnaire Date Thrive assessed: 02/05/24 I am a: Patient What is your living situation today?: I have a steady place to live Within the past 12 months, did the food you bought not last and you didn't have the money to get more?: Never true Within the past 12 months, did you worry whether your food would run out before you got money to buy more?: Never true Do you have trouble paying for medicines?: No Do you have trouble getting transportation to medical appointments?: No Do you have trouble paying your heating and electricity bill?: No Do you have trouble taking care of your child, family member or friend?: No Do you have trouble with day-to-day activities such as bathing, preparing meals, shopping, managing finances, etc.?: No Are you currently unemployed and looking for a job?: No Are you interested in more education?: No Please select the resources that you would like help with: None Currently or been in a relationship where the following occur: no concerns reported THRIVE Score: 0 AUDIT C Alcohol Use Questionnaire (AUDIT-C) 1. How often do you have a drink containing alcohol?: Never 3. How often do you have six or more drinks on one occasion?: Never Total Score: 0 Score Reviewed/Action Taken: Yes HASMUKH-7 AMB Questionnaire HASMUKH-7 Date HASMUKH - 7 assessed: 02/05/24 Feeling nervous, anxious, or on edge: 0 = Not at all Not being able to stop or control worryin = Not at all Worrying too much about different things: 0 = Not at all Trouble relaxin = Not at all Being so restless that it is hard to sit still: 0 = Not at all Becoming easily annoyed or irritable: 0 = Not at all Feeling afraid as if something awful might happen: 0 = Not at all Total HASMUKH-7 score (0-4 normal; 5-9 mild; 10-14 moderate; 15-21 severe): 0 Source: Developed by Drs. John Leone, Liliana Sauer, Bebeto Lehman and colleagues, with an educational nilesh from [employer]. HASMUKH-7 Assessment Billing HASMUKH-7 Assessment Tool: HASMUKH-7 Assessment 51837 Review of Systems Const Denies chills, Denies fever(s) and Denies headache(s) Eyes Denies blurry vision ENT Denies headache(s), Denies nasal discharge, Denies nasal obstruction, Denies odynophagia and Denies sinus pain Card Denies chest pain at rest and Denies chest pain with activity Resp Denies cough and Denies hemoptysis GI Denies diarrhea, Denies odynophagia, Denies vomiting and Denies hematemesis Reports as per HPI Musc Denies abnormal gait Skin/Breast Reports as per HPI Neuro Denies Neuro-related abnormal movements, Denies Abnormal speech present, Denies abnormal gait and Denies headache(s) Psych Denies mood swings and Denies paranoia Endo Reports as per HPI Anthony/Lymph Reports as per HPI Aller/Immun Reports as per HPI Physical exam (Primary Care) Vital Signs: Last Vital Signs Pulse 78 02/05/24 09:36 BP 100/58 L 02/05/24 09:36 Pulse Ox 98 02/05/24 09:36 Oxygen Delivery Method Room Air 02/05/24 09:36 BMI result Body Mass Index 23.5 Tobacco/Smoking Status: Tobacco use Status Tobacco use date assessed 02/05/24 02/05/24 09:39 Patient Tobacco Use Status Former Tobacco user 02/05/24 09:39 e-Cigarette/Vaping Use Never Used 02/05/24 09:39 PHQ-9: PHQ-9 Score PHQ-9: Total score 0 02/05/24 09:57 Depression Screening Interpretation: Negative Thrive Assessment: Date of Thrive Assessment Date Thrive assessed 02/05/24 02/05/24 09:39 Currently or been in a relationship where the following occur: no concerns reported Const General: cooperative, comfortable and no acute distress Orientation/consciousness: patient oriented x3 HENMT Head: Yes normocephalic and Yes atraumatic Eyes General: appearance normal, both eyes and all related structures Pupils: Equal, round and reactive pupils present EOM: EOMs intact bilaterally Neck Neck: Yes supple and No lymphadenopathy Thyroid: Thyroid normal Lymphatic: no lymphadenopathy noted Resp Effort & Inspection: normal respiratory effort and able to speak in complete sentences Auscultation: clear to auscultation bilaterally Cardio Heart sounds: S1 normal heart sound present and S2 normal heart sound present GI Palpation (GI): Soft to palpation and nontender Auscultation: normal bowel sounds General: Yes no CVA tenderness Back/Spine/Pelvis Back: no CVA tenderness Skin General skin exam: elasticity normal and turgor normal Neuro General: patient oriented x3 and gait normal Cranial nerves: Yes Equal, round and reactive pupils present Speech: No Abnormal speech present Coordination: tandem gait normal and Romberg test negative Extrem General: Yes normal exam except as noted and No edema Assessment and Plan Assessment & Plan (1) Encounter for general adult medical examination with abnormal findings: Code(s): Z00.01 - Encounter for general adult medical examination with abnormal findings (2) 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: Code(s): Z79.4 - 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 (3) GERD (gastroesophageal reflux disease): Code(s): K21.9 - Gastro-esophageal reflux disease without esophagitis Qualifiers: Esophagitis presence: without esophagitis Qualified Code(s): K21.9 - Gastro-esophageal reflux disease without esophagitis (4) Diabetic neuropathy: Code(s): E11.40 - Type 2 diabetes mellitus with diabetic neuropathy, unspecified Qualifiers: Diabetes mellitus complication detail: diabetic autonomic neuropathy Diabetes mellitus type: type 1 Qualified Code(s): E10.43 - Type 1 diabetes mellitus with diabetic autonomic (poly)neuropathy (5) Lipid disorder: Code(s): E78.9 - Disorder of lipoprotein metabolism, unspecified Plan Patient is a 58-year-old gentleman came in today for physical examination He is seeing Dr. Sherwood endocrinology [facility] for the management of diabetes and high cholesterol Only medication from primary care office is pantoprazole for chronic GERD He had labs in October his hemoglobin A1c is 9.2 Colonoscopy was in 2019 Orders: Orders Complete Blood Count Auto Diff Today E10.43 - Type 1 diabetes mellitus with diabetic autonomic (poly)neuropathy, E78.9 - Disorder of lipoprotein metabolism, unspecified, K21.9 - Gastro-esophageal reflux disease without esophagitis, Z00.01 - Encounter for general adult medical examination with abnormal findings, Z79.4 - [facility] (current) use of insulin Vitamin D 25-OH (D2 and D3) Today E10.43 - Type 1 diabetes mellitus with diabetic autonomic (poly)neuropathy, E78.9 - Disorder of lipoprotein metabolism, unspecified, K21.9 - Gastro-esophageal reflux disease without esophagitis, Z00.01 - Encounter for general adult medical examination with abnormal findings, Z79.4 - [facility] (current) use of insulin Hemoglobin A1c Today E10.43 - Type 1 diabetes mellitus with diabetic autonomic (poly)neuropathy, E78.9 - Disorder of lipoprotein metabolism, unspecified, K21.9 - Gastro-esophageal reflux disease without esophagitis, Z00.01 - Encounter for general adult medical examination with abnormal findings, Z79.4 - 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 Comprehensive Stout. Panel Fast Today E10.43 - Type 1 diabetes mellitus with diabetic autonomic (poly)neuropathy, E78.9 - Disorder of lipoprotein metabolism, unspecified, K21.9 - Gastro-esophageal reflux disease without esophagitis, Z00.01 - Encounter for general adult medical examination with abnormal findings, Z79.4 - [facility] (current) use of insulin Lipid Panel Today E10.43 - Type 1 diabetes mellitus with diabetic autonomic (poly)neuropathy, E78.9 - Disorder of lipoprotein metabolism, unspecified, K21.9 - Gastro-esophageal reflux disease without esophagitis, Z00.01 - Encounter for general adult medical examination with abnormal findings, Z79.4 - 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 Microalbumin, Random (w Creat) Today E1043 - Type 1 diabetes mellitus with diabetic autonomic (poly)neuropathy, E78.9 - Disorder of lipoprotein metabolism, unspecified, K21.9 - Gastro-esophageal reflux disease without esophagitis, Z00.01 - Encounter for general adult medical examination with abnormal findings, Z79.4 - 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 Medications: Changed From pantoprazole 40 mg PO DAILY 90 tabs 0RF To pantoprazole 20 mg PO DAILY 90 tabs 3RF 90 days Coding Level of Care Code Est Pt Prev Care 40-64y(14262) Diagnoses Encounter for general adult medical examination with abnormal findings Z00.01 [facility] (current) use of insulin Z79.4 Gastroesophageal reflux disease without esophagitis K21.9 Esophagitis presence: without esophagitis Diabetic autonomic neuropathy associated with type 1 diabetes mellitus E10.43 Diabetes mellitus complication detail: diabetic autonomic neuropathy Diabetes mellitus type: type 1 Lipid disorder E78.9 Additional Codes HASMUKH-7 Assessment Billing - HASMUKH-7 Assessment Tool: HASMUKH-7 Assessment [id number] ([id number])
== END 2024-02-05 10:21 | disposition home or self-care (01) ==
PROVIDERS: PCP Internal Medicine; Visit Provider Internal Medicine
DX: Z00.01 Encounter for general adult medical examination with abnormal findings (principal); Z79.4 Long term (current) use of insulin; K21.9 Gastro-esophageal reflux disease without esophagitis; E10.43 Type 1 diabetes mellitus with diabetic autonomic (poly)neuropathy; E78.9 Disorder of lipoprotein metabolism, unspecified
CPT/HCPCS: 99396

== ENCOUNTER 2024-05-05 08:08 | Outpatient (AMB) | payer OTHER, SELFPAY ==
[2024-05-05 08:25] VITALS: BP 100/60; PULSE 81; TEMP 36.8; O2SAT 97; BMI 21.0
--- NOTE | 2024-05-05 08:25 | AM.OFFWIN_ITS ---
Intake Vital Signs 05/05/24 08:25 Height 5 ft 5 in Weight 126 lb 4 oz BMI 21.0 BP 100/60 Blood Pressure Location Rt brachial Position Sitting Pulse 81 Pulse Source Pulse Oximeter Temp 98.2 F Temp Source Oral Pulse Oximetry (%) 97 Oxygen Delivery Method Room Air Intake Visit Reasons: EP sore throat cough Intake Note: pt is here for sore throat, cough 2 weeks Patient Tobacco Use Status: Former Tobacco user Allergies penicillin V Allergy (Unknown, Verified 05/05/24 08:36) Unknown Penicillins [PENICILLINS] Allergy (Unknown, Verified 05/05/24 08:36) UNKNOWN Sulfa (Sulfonamide Antibiotics) [SULFA (SULFONAMIDE ANTIBIOTICS)] Allergy (Unknown, Verified 05/05/24 08:36) UNKNOWN Do you need a note to return to daycare/school/sports/work: No HPI EP sore throat cough HPI Details Patient presents for a sick visit. Reporting symptoms of sinus congestion, sore throat and difficulty swallowing. Low-grade fever. No family member is sick. No recent travel. Patient reports symptoms of malaise and fatigue. Patient recently returned after a pilgrimage to the [facility]. who travel with him is having similar illness. 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 Cognitive needs: No Hearing needs: No Vision needs: Yes (Glasses) Physical Exam Vital Signs: Last Vital Signs Temp 98.2 F 05/05/24 08:25 Pulse 81 05/05/24 08:25 BP 100/60 05/05/24 08:25 Pulse Ox 97 05/05/24 08:25 Oxygen Delivery Method Room Air 05/05/24 08:25 BMI result Body Mass Index 21.0 Const General: cooperative and healthy appearing Nutritional Appearance: well nourished Orientation/consciousness: patient oriented x3 Limitations: no limitations HEENT Head: Yes normal to inspection Eyes General: appearance normal, both eyes and all related structures Neck Neck: Yes normal visual inspection Chest Chest palpation & inspection: normal palpation of entire chest wall Resp Effort & Inspection: normal respiratory effort Neuro General: patient oriented x3 Assessment & Plan Assessment & Plan (1) Upper respiratory tract infection: Code(s): J06.9 - Acute upper respiratory infection, unspecified Plan: Antibiotics ordered. Increase fluid intake. Tylenol for aches and pains. If symptoms worsen, follow-up here for a recheck. COVID testing ordered. If symptoms do not improve to follow-up here. Will call with the results of the COVID test. Coding Level of Care Code Est Pt Level 3 (02774) Diagnoses Upper respiratory tract infection J06.9
== END 2024-05-05 09:17 | disposition home or self-care (01) ==
PROVIDERS: PCP Internal Medicine; Visit Provider Internal Medicine
DX: J06.9 Acute upper respiratory infection, unspecified (principal); J02.9 Acute pharyngitis, unspecified
CPT/HCPCS: 87880; 99213

== ENCOUNTER 2024-05-05 08:48 | Outpatient (REF) | payer OTHER, SELFPAY ==
[2024-05-05 10:09] LABS: MANUAL DIFF FLAG NO
[2024-05-05 10:29] LABS: Basophils Percent Auto 0.3 % (0-2); Eosinophils Absolute Auto 0.1 X10*3/uL (0.0-0.4); Eosinophils Percent Auto 1.1 % (0-4); Hematocrit 42.3 % (42.0-52.0); Hemoglobin 13.7 g/dl (14.0-18.0); Imm Gran Abs Auto 0.02 X10*3/uL (0.00-0.03); Imm Gran Pct Auto 0.3 % (0.0-0.4); Lymphocytes Absolute Auto 2.7 X10*3/uL (1.2-4.9); Lymphocytes Percent Auto 38.2 % (20-40); Mean Corpuscular HGB Conc 32.4 g/dl (31.0-36.0); Mean Corpuscular Hemoglobin 25.4 pg (27.0-33.0); Mean Corpuscular Volume 78.5 fL (80.0-98.0); Mean Platelet Volume 10.4 fL (9.4-12.4); Monocytes Absolute Auto 0.4 X10*3/uL (0.1-1.2); Monocytes Percent Auto 5.5 % (2-11); Neutrophils Absolute Auto 3.9 x10*3/uL (2.0-8.3); Neutrophils Percent Auto 54.6 % (45-73); Platelet Count 231 X10*3/uL (160-400); Red Blood Count 5.39 X10*6/uL (4.60-5.80); Red Cell Distribution Width 17.8 % (11.0-16.0); White Blood Count 7.1 X10*3/uL (4.8-10.8)
[2024-05-05 10:30] LABS: Estimated Average Glucose 252 mg/dL; Hemoglobin A1c % 10.4 % (<6.0)
[2024-05-05 12:23] LABS: Alanine Aminotransferase 19 U/L (0-40); Albumin Level 4.2 g/dL (3.5-5.0); Alkaline Phosphatase 93 U/L (39-117); Anion Gap 15 (12-20); Aspartate Amino Transferase 20 U/L (5-37); Bilirubin Total 0.4 mg/dL (0.0-1.0); Blood Urea Nitrogen 10 mg/dL (9-16); Calcium 9.7 mg/dL (8.4-10.2); Carbon Dioxide 25 mmol/L (22-29); Chloride 103 mmol/L (96-108); Cholesterol 149 mg/dL (<200); Estimated Glomerular Filt Rate > 60; Glucose Fasting 265 mg/dL (60-99); HDL Cholesterol 35 mg/dL (>40); LDL Cholesterol Calculated 89 mg/dL (<100); Potassium 4.5 mmol/L (3.3-5.1); Sodium 138 mmol/L (135-145); Total Protein 7.6 g/dL (6.5-8.0); Triglycerides 129 mg/dL (<150)
[2024-05-05 12:24] LABS: Creatinine Urine 44.91 mg/dL; Microalbum/Creatinine Ratio Ur 15.5 ug/mg cr (<30)
[2024-05-09 13:30] LABS: Vitamin D 25-OH, D2 <4 ng/mL; Vitamin D 25-OH, D3 24 ng/mL; Vitamin D 25-OH, Total 24 ng/mL (30-100)
== END 2024-05-05 08:49 | disposition home or self-care (01) ==
LOC: HO.HMGCLDS 08:48
PROVIDERS: PCP Internal Medicine; Visit Provider Internal Medicine
DX: Z00.01 Encounter for general adult medical examination with abnormal findings (principal); E78.9 Disorder of lipoprotein metabolism, unspecified; E10.43 Type 1 diabetes mellitus with diabetic autonomic (poly)neuropathy; K21.9 Gastro-esophageal reflux disease without esophagitis; Z79.4 Long term (current) use of insulin
CPT/HCPCS: 36415; 80053; 80061; 82043; 82306; 82570; 83036; 85025

== ENCOUNTER 2024-05-05 15:18 | Outpatient (REF) | payer OTHER, SELFPAY ==
[2024-05-05 16:42] LABS: Influenza A PCR NEGATIVE (Negative); Influenza B PCR NEGATIVE (Negative); Resp Syncy Virus RNA Qual PCR NEGATIVE (Negative); SARS COV2 PCR INHOUSE NEGATIVE (Negative)
== END 2024-05-05 15:19 | disposition home or self-care (01) ==
LOC: HO.LAB 15:18
PROVIDERS: Visit Provider Internal Medicine
DX: R43.9 Unspecified disturbances of smell and taste (principal)
CPT/HCPCS: 0241U

== ENCOUNTER 2024-05-21 11:54 | Outpatient (AMB) | payer OTHER, SELFPAY ==
--- NOTE | 2024-05-21 11:56 | A.OFFVIS_ITS ---
Vital Signs 05/21/24 11:57 Height 5 ft 5 in Weight 131 lb BMI 21.8 BP 110/62 Blood Pressure Location Lt brachial Position Sitting Pulse 90 Pulse Source Pulse Oximeter Temp 97.2 F Temp Source Temporal Artery Scan Pulse Oximetry (%) 98 Oxygen Delivery Method Room Air Intake Visit Reasons: EP Diff swallowing/Sore throat Intake Note: Catarino is a 59 year old male who presents to the office today for difficulty swallowing/sore throat/ cough x2 months. Allergies penicillin V Allergy (Unknown, Verified 05/21/24 11:59) Unknown Penicillins [PENICILLINS] Allergy (Unknown, Verified 05/21/24 11:59) UNKNOWN Sulfa (Sulfonamide Antibiotics) [SULFA (SULFONAMIDE ANTIBIOTICS)] Allergy (U nknown, Verified 05/21/24 11:59) UNKNOWN HPI Comments Details: 59 y/o male patient who presents to walk in clinic with c/o Throat pain x 2 months. Reports feeling like something is stuck inside Throat causing him to have dry persistent cough. Pain is also located at the Epigastric region - reports regurgitation of food material. Reports that pain worse after meals, making difficulty with swallowing solids. Symptoms more pronounced at Bedtime. He does admit to eating Spicy foods and eating late at night Around 9pm. 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 Cognitive needs: No Hearing needs: No Vision needs: Yes (Glasses) Physical Exam Vital Signs: Last Vital Signs Temp 97.2 F 05/21/24 11:57 Pulse 90 05/21/24 11:57 BP 110/62 05/21/24 11:57 Pulse Ox 98 05/21/24 11:57 Oxygen Delivery Method Room Air 05/21/24 11:57 BMI result Body Mass Index 21.8 Const General: comfortable and no acute distress Nutritional Appearance: thin Orientation/consciousness: patient oriented x3 HEENT Head: Yes normocephalic Ears: external ears normal and TM's normal bilaterally General nose exam: Normal nasal mucous membranes and turbinates present Face and sinus: Yes sinuses nontender Mouth: moist mucous membranes Throat: Yes postnasal drainage Resp Effort & Inspection: normal respiratory effort and able to speak in complete sentences Auscultation: clear to auscultation bilaterally, no crackles, no rales, no rhonchi and no wheezes Neuro General: patient oriented x3, gait normal and moves all extremities Psych Speech and movement: Normal speech and movement present Assessment & Plan Assessment & Plan (1) Epigastric pain: Code(s): R10.13 - Epigastric pain Plan: H/o GERD Ordered Pepcid for Bedtime Pantoprazole BID Lifestyle changes; Avoid oily greasy foods and Spicy foods. Do not eat close to the Bedtime. (2) Throat pain in adult: Code(s): R07.0 - Pain in throat Plan: Ordered TSH to r/o Thyroid disease Orders: Orders TSH reflex Free T4 Today R07.0 - Pain in throat Medications: New famotidine 20 mg PO BEDTIME 90 tabs 0RF K21.9 - Gastro-esophageal reflux disease without esophagitis, R10.13 - Epigastric pain Changed From pantoprazole 20 mg PO DAILY 90 days 90 tabs 3RF K21.9 - Gastro-esophageal reflux disease without esophagitis, R10.13 - Epigastric pain To pantoprazole 20 mg PO BID 90 days 180 tabs 0RF K21.9 - Gastro-esophageal reflux disease without esophagitis, R10.13 - Epigastric pain Coding Level of Care Code Est Pt Level 3 (90595) Diagnoses Epigastric pain R10.13 Throat pain in adult R07.0 Time Spent (min) 15
[2024-05-21 11:57] VITALS: BP 110/62; PULSE 90; TEMP 36.2; O2SAT 98; BMI 21.8
== END 2024-05-21 12:29 | disposition home or self-care (01) ==
PROVIDERS: PCP Internal Medicine; Visit Provider Nurse Practitioner Family
DX: R10.13 Epigastric pain (principal); R07.0 Pain in throat
CPT/HCPCS: 99213

== ENCOUNTER 2024-05-21 12:16 | Outpatient (REF) | payer OTHER, SELFPAY ==
[2024-05-21 14:50] LABS: TSH reflex Free T4 1.25 uIU/mL (0.32-4.0)
== END 2024-05-21 12:17 | disposition home or self-care (01) ==
LOC: HO.HMGCLDS 12:16
PROVIDERS: PCP Internal Medicine; Visit Provider Nurse Practitioner Family
DX: R07.0 Pain in throat (principal)
CPT/HCPCS: 36415; 84443

== ENCOUNTER 2024-06-03 08:27 | Outpatient (AMB) | payer OTHER, SELFPAY ==
--- NOTE | 2024-06-03 08:29 | A.OFFVIS_ITS ---
Vital Signs 06/03/24 08:32 Height 5 ft 5 in Weight 132 lb 4.438 oz BMI 22.0 BP 108/62 Position Sitting Pulse 86 Pulse Source Pulse Oximeter Intake Visit Reasons: T2DM/CONFIRMED Intake Note: Patient present today to follow up on Type 2 Diabetes Mellitus. Last Diabetic Eye exam: DUE Last Podiatry Visit: Does not see a Wash Oil Pump Operator Helper Random Glucose: 211 mg/dL HgA1C: 10.4 % 05/05/2024 School Lunch Monitor Required: No Accompanied by: Self / Same As Patient Allergies penicillin V Allergy (Unknown, Verified 06/03/24 08:32) Unknown Penicillins [PENICILLINS] Allergy (Unknown, Verified 06/03/24 08:32) UNKNOWN Sulfa (Sulfonamide Antibiotics) [SULFA (SULFONAMIDE ANTIBIOTICS)] Allergy (Unknown, Verified 06/03/24 08:32) UNKNOWN HPI Comments Details: Patient is a 59 year male with DM type 2 diagnosed in 2005 who presents for management of diabetes. Hemoglobin A1c is up to 10.4% which she attributes to higher numbers he was overseas [place]. Vitamin D3 slightly low Past medical history: DM 2 Hyperlipidemia iron deficiency anemia B12 deficiency Micro and macrovascular complications: none known. Diabetes medications: Tresiba 20 units at bedtime metformin 1000 twice a day Jardiance 25 mg QD Fiasp Breakfast 14 units Lunch 14 units Supper 14-16 units Trulicity 3/mounjaro weekly not taking because of nausea FS 2 average glucose: [175 ] Glucose Managment indicator 7.5 % TIme in range: 11 % very high (above 250) 34 % high ?(181-250) 54% in range ?(70-180] 1 % low (69-55) Running abouve target during the day Symptoms reported: denies numbness, tingling, cramping in lower extremities Hypoglycemia: rare . Hyperglycemia: denies urinary frequency, +nocturia 1x, polydypsia Exercise: Treadmill 3 times a week, 15-30 minutes Egg Trayer - CDE education: yes, awhile ago Wash Oil Pump Operator Helper: none Dental exam: goes every 3 months. Ophthalmology evaluation: appt Aug 2023 has cataract procedure scheduled. 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 Cognitive needs: No Hearing needs: No Vision needs: Yes (Glasses) Physical Exam Vital Signs: Last Vital Signs Pulse 86 06/03/24 08:32 BP 108/62 06/03/24 08:32 BMI result Body Mass Index 22.0 Const General: cooperative and healthy appearing Nutritional Appearance: average body habitus Orientation/consciousness: patient oriented x3 Limitations: no limitations Neck Neck: Yes normal visual inspection Thyroid: Thyroid normal Resp Effort & Inspection: normal respiratory effort Cardio Jugular venous distension: no JVD Rate: regular rate Rhythm: regular rhythm Heart sounds: S1 normal heart sound present and S2 normal heart sound present Neuro General: patient oriented x3 Extrem Other: Visual exam of foot performed. No ulcerations or open lesions. No onchomycosis, no callouses. Sensation intact to monofilament exam. Vibratory sensation is normal with 128 Hz tuning fork. Results Reviewed Results Reviewed: Laboratory Last Values Glucose (Clinic) 211 mg/dL (60-115) H 06/03/24 08:39 Laboratory Tests 07/19/23 11/09/23 05/05/24 08:23 12:38 09:34 Plt Count 231 Potassium 4.5 BUN 10 Creatinine 0.80 Estimated GFR > 60 Fasting Glucose 265 H Estimat Average Glucose 252 Hemoglobin A1c % 11.2 H 9.2 H 10.4 H Calcium 9.7 AST 20 ALT 19 Albumin 4.2 Triglycerides 129 Cholesterol 149 LDL Cholesterol, Calc 89 HDL Cholesterol 35 L 25-OH Vitamin D Total 24 L TSH 05/21/24 12:22 Plt Count Potassium BUN Creatinine Estimated GFR Fasting Glucose Estimat Average Glucose Hemoglobin A1c % Calcium AST ALT Albumin Triglycerides Cholesterol LDL Cholesterol, Calc HDL Cholesterol 25-OH Vitamin D Total TSH 1.25 Assessment & Plan Assessment & Plan (1) Diabetes type 2, uncontrolled: Code(s): E11.65 - Type 2 diabetes mellitus with hyperglycemia Category: Medical Qualifiers: Glycemic state: with hyperglycemia Qualified Code(s): E11.65 - Type 2 diabetes mellitus with hyperglycemia Plan: Hemoglobin elevated in a type 2 diabetic. Most recent GMI my improved to 7.5% increase Tresiba we will change him to a freestyle Gregg using a reader Diabetes medications: Tresiba 20 units at bedtime metformin 1000 twice a day Jardiance 25 mg QD Fiasp Breakfast 14 units Lunch 14 units Supper 14-16 units Patient teaching: The patient was counseled to always carry a source of sugar and on the rule of 15's: Take 3 glucose tablets and repeat again in 15 minutes if blood sugar is not in normal range. Continue to repeat every 15 minutes until blood sugar is normal. The patient was counseled to achieve a target A1C of 7% (154 avg). Fasting blood sugars should be 90-130 in the morning and less than 180 two hours after meals. Reviewed the relationship between poor diabetic control and the developement of complications He will see Emilia Hester CDE in 2 weeks to change to freestyle 3 and review his numbers. Follow-up Dr. Sherwood 3 months Medications: New blood-glucose sensor (FreeStyle Gregg 3 Sensor device) As directed 2 ea 11RF blood-glucose meter,continuous (FreeStyle Gregg 3 [place]) As directed 1 ea 1RF Changed From insulin degludec (Tresiba FlexTouch U-200 insulin) 18 units (0.09 mL) subcut BEDTIME 90 days 9 mL 3RF To insulin degludec (Tresiba FlexTouch U-200 insulin) 22 units (0.11 mL) subcut BEDTIME 90 days 12 mL 3RF Refilled pen needle, diabetic (BD Juanita 2nd Gen Pen Needle) 5 times a day 400 ea 4RF E11.65 - Type 2 diabetes mellitus with hyperglycemia Coding Level of Care Code Est Pt Level 5 (18175) Complex EM visit Add On G2211 Diagnoses Uncontrolled type 2 diabetes mellitus with hyperglycemia E11.65 Glycemic state: with hyperglycemia Time Spent (min) 45 Comment Time spent reviewing labs/previous provider notes, face to face, chart documentation
[2024-06-03 08:32] VITALS: BP 108/62; PULSE 86; BMI 22.0
[2024-06-03 08:44] LABS: Glucose, Whole Blood 211 mg/dL (60-115)
== END 2024-06-03 09:02 | disposition home or self-care (01) ==
PROVIDERS: PCP Internal Medicine; Visit Provider Nurse Practitioner Adult Health
DX: E11.65 Type 2 diabetes mellitus with hyperglycemia (principal)
CPT/HCPCS: 99215; G2211

== ENCOUNTER → 2024-06-03 08:27 | Outpatient (BNVA) | payer OTHER, SELFPAY | PROVIDERS: PCP Internal Medicine; Visit Provider Nurse Practitioner Adult Health | DX: E11.65 Type 2 diabetes mellitus with hyperglycemia (principal) | CPT/HCPCS: 82947; 99212 ==

== ENCOUNTER 2024-06-19 10:26 | Outpatient (AMB) | payer OTHER, SELFPAY ==
--- NOTE | 2024-06-19 10:32 | MHC.AMDMED ---
Intake Intake Visit Reasons: T2DM Development Technician Required: No Accompanied by: Self / Same As Patient Allergies penicillin V Allergy (Unknown, Verified 06/03/24 08:32) Unknown Penicillins [PENICILLINS] Allergy (Unknown, Verified 06/03/24 08:32) UNKNOWN Sulfa (Sulfonamide Antibiotics) [SULFA (SULFONAMIDE ANTIBIOTICS)] Allergy (Unknown, Verified 06/03/24 08:32) UNKNOWN HPI Comprehensive Diabetes Asmnt Most Recent Diabetes Results: Microalb/Creat Ratio 15.5 ug/mg cr (<30) 05/05/24 Cholesterol 149 mg/dL (<200) 05/05/24 HDL Cholesterol 35 mg/dL (>40) L 05/05/24 Triglycerides 129 mg/dL (<150) 05/05/24 Creatinine 0.80 mg/dL (0.5-1.4) 05/05/24 Blood Urea Nitrogen 10 mg/dL (9-16) 05/05/24 Sodium 138 mmol/L (135-145) 05/05/24 Potassium 4.5 mmol/L (3.3-5.1) 05/05/24 Chloride 103 mmol/L (96-108) 05/05/24 Carbon Dioxide 25 mmol/L (22-29) 05/05/24 Calcium 9.7 mg/dL (8.4-10.2) 05/05/24 AST 20 U/L (5-37) 05/05/24 ALT 19 U/L (0-40) 05/05/24 Total Protein 7.6 g/dL (6.5-8.0) 05/05/24 Albumin 4.2 g/dL (3.5-5.0) 05/05/24 [facility] Medical History Internal derangement of right shoulder Dyslipidemia Vitamin D deficiency B12 deficiency 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 Diabetes type 2, uncontrolled Surgical History Hx of appendectomy Family History Mother Diabetes Social History Housing: House Alcohol intake: never Patient Tobacco Use Status: Former Tobacco user e-Cigarette/Vaping Use: Never Used Second Hand Smoke Exposure: No service: No Current occupational status: employed 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 Cognitive needs: No Hearing needs: No Vision needs: Yes (Glasses) Assessment & Plan Assessment & Plan (1) Diabetes mellitus: Code(s): E11.9 - Type 2 diabetes mellitus without complications Plan: Patient at visit to set up an insert Gregg 3 Instructed patient sensors water proof you can shower, or swim do not submerge sensor in water for over 30 minutes Is sensor falls off cannot put back in you need to replace sensor, customer service number given to patient for sensor replacement Setup Gregg 3 [place] on Smart phone Patient did not want to start Gregg 3 howard, he has 1 more Gregg 2 which she will use then he will start with 3. Instructed patient to contact simulation educator with questions Reviewed how to interpret trend arrows Reminded patient that to check finger sticks if symptoms do not match sensor reading. Discussed lag time between finger stick and sensor data.? Instructed patient she should always keep blood glucometer for backup testing if needed Reviewed delay of CGM from fingersticks Reminded pt that if symptoms do not match sensor still needs to check fingersticks. Portions of this note were created using voice recognition software, please excuse any words or phrases that may have been misinterpreted. Patient Instructions: Patient instruction: CGM provides information on blood glucose control throughout the day, including hyperglycemia and hypoglycemia. ? Continue to monitor blood glucose as instructed. Follow nutrition guidelines provided. Report any discomfort promptly to health care provider. ?Stay well-hydrated. You can bathe ,shower, swim and exercise while wearing the glucose sensor. Do not submerge glucose sensor in water for more than 30 minutes. Coding Level of Care Code Est Pt Level 1 (06096) Diagnoses Diabetes mellitus E11.9
== END 2024-06-19 11:10 | disposition home or self-care (01) ==
PROVIDERS: PCP Internal Medicine; Visit Provider Registered Nurse Diabetes Educator
DX: E11.9 Type 2 diabetes mellitus without complications (principal)

== ENCOUNTER → 2024-06-19 10:26 | Outpatient (BNVA) | payer OTHER, SELFPAY | PROVIDERS: PCP Internal Medicine; Visit Provider Registered Nurse Diabetes Educator | DX: E11.65 Type 2 diabetes mellitus with hyperglycemia (principal); Z79.4 Long term (current) use of insulin | CPT/HCPCS: 99211 ==

== ENCOUNTER 2024-07-02 14:01 | Outpatient (AMB) | payer OTHER, SELFPAY ==
--- NOTE | 2024-07-02 14:02 | A.OFFPC_ITS ---
Vital Signs 07/02/24 14:03 Height 5 ft 5 in Weight 137 lb 4 oz BMI 22.8 BP 110/68 Blood Pressure Location Rt brachial Position Sitting Pulse 87 Pulse Source Pulse Oximeter Pulse Oximetry (%) 97 Oxygen Delivery Method Room Air Intake Visit Reasons: Cataract Surgery Allergies penicillin V Allergy (Unknown, Verified 07/02/24 14:05) Unknown Penicillins [PENICILLINS] Allergy (Unknown, Verified 07/02/24 14:05) UNKNOWN Sulfa (Sulfonamide Antibiotics) [SULFA (SULFONAMIDE ANTIBIOTICS)] Allergy (Unknown, Verified 07/02/24 14:05) UNKNOWN Medication List - Last Reconciled 07/02/24 by Marisela Wylie MD acetone (urine) test (Ketone Urine Test strips) As directed albuterol sulfate 90 mcg/actuation 2 puffs inhalation Q6H PRN blood sugar diagnostic (FreeStyle Precision [place] Strips) As directed four times a day blood-glucose meter,continuous (FreeStyle Gregg 3 [place]) As directed blood-glucose sensor (FreeStyle Gregg 3 Sensor device) As directed empagliflozin (Jardiance) 25 mg PO DAILY famotidine 20 mg PO BEDTIME flash glucose scanning reader (FreeStyle Gregg 2 [place]) check three times a day flash glucose sensor (FreeStyle Gregg 2 Sensor kit) USE DIRECTED TO CHECK BLOOD SUGAR. CHANGE EVERY 14 DAYS. glucagon (Glucagon Emergency Kit) 1 mg subcut Q20M PRN insulin aspart U-100 (Novolog FlexPen U-100 Insulin aspart) 14 units before breakfast and lunch, 14-16 units before supper subcutaneously use as directed; 30 days insulin degludec (Tresiba FlexTouch U-200 insulin) 22 units (0.11 mL) subcut BEDTIME 90 days metformin 1,000 mg PO BID pantoprazole 20 mg PO DAILY 90 days pen needle, diabetic (BD Juanita 2nd Gen Pen Needle) 5 times a day simvastatin 20 mg PO BEDTIME Tobacco use date assessed: 07/02/24 Dental Screening Dental Screen Date: 07/02/24 Did you have a dental visit in the last 12 months?: No Did you have a dental problem in the last 6 months where you did not have access to dental care?: No Was dental information given to patient?: Patient has dentist HPI Cataract Surgery HPI Details Patient is 59-year-old gentleman with uncontrolled diabetes Last hemoglobin A1c was 10.4 in April, which has come down to 9.0 Currently under care of endocrinology [facility] Fasting sugars are ranging around 180s We talked about better control of diet, especially round surgery Patient will be going in for cataract surgery right eye of this month and then left eye of this month By 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 1. Little interest or pleasure in doing things: not at all 2. Feeling down, depressed, or hopeless: not at all 3. Trouble falling or staying asleep, or sleeping too much: not at all 4. Feeling tired or having little energy: several days 5. Poor appetite or overeating: not at all 6. Feeling bad about yourself - or that you are a failure or have let yourself or your family down: not at all 7. Trouble concentrating on things, such as reading the newspaper or watching television: not at all 8. Moving or speaking so slowly that other people could have noticed. Or the opposite - being so fidgety or restless that you have been moving around a lot more than usual: not at all 9. Thoughts that you would be better off or of hurting yourself in some way: not at all Total score: 1 Depression Screening Interpretation: Negative Depression Screening Done: Yes 17168 - PHQ-9 Billing: Yes Source: Developed by Drs. John Leoen, Liliana Sauer, Bebeto Lehman and colleagues, with an educational nilesh from [employer]. Thrive Questionnaire Date Thrive assessed: 07/02/24 I am a: Patient What is your living situation today?: I have a steady place to live Within the past 12 months, did the food you bought not last and you didn't have the money to get more?: I choose not to answer this question Within the past 12 months, did you worry whether your food would run out before you got money to buy more?: I choose not to answer this question Do you have trouble paying for medicines?: No Do you have trouble getting transportation to medical appointments?: No Do you have trouble paying your heating and electricity bill?: No Do you have trouble taking care of your child, family member or friend?: No Do you have trouble with day-to-day activities such as bathing, preparing meals, shopping, managing finances, etc.?: I choose not to answer this question Are you currently unemployed and looking for a job?: No Are you interested in more education?: No Please select the resources that you would like help with: None Currently or been in a relationship where the following occur: I choose not to answer THRIVE Score: 0 AUDIT C Alcohol Use Questionnaire (AUDIT-C) 1. How often do you have a drink containing alcohol?: Never 3. How often do you have six or more drinks on one occasion?: Never Total Score: 0 Score Reviewed/Action Taken: Yes HASMUKH-7 AMB Questionnaire HASMUKH-7 Date HASMUKH - 7 assessed: 07/02/24 Feeling nervous, anxious, or on edge: 0 = Not at all Not being able to stop or control worryin = Not at all Worrying too much about different things: 0 = Not at all Trouble relaxin = Not at all Being so restless that it is hard to sit still: 0 = Not at all Becoming easily annoyed or irritable: 0 = Not at all Feeling afraid as if something awful might happen: 0 = Not at all Total HASMUKH-7 score (0-4 normal; 5-9 mild; 10-14 moderate; 15-21 severe): 0 Source: Developed by Drs. John Leone, Liliana Sauer, Bebeto Lehman and colleagues, with an educational nilesh from [employer]. HASMUKH-7 Assessment Billing HASMUKH-7 Assessment Tool: HASMUKH-7 Assessment 71801 Review of Systems Const Denies chills and Denies fever(s) ENT Denies epistaxis and Denies nasal discharge Card Denies chest pain Resp Denies chest congestion, Denies cough and Denies hemoptysis GI Denies diarrhea and Denies nausea Skin/Breast Denies rash Neuro Reports no additional complaints Psych Reports no additional complaints Endo Reports no additional complaints Physical exam (Primary Care) Vital Signs: Last Vital Signs Pulse 87 07/02/24 14:03 BP 110/68 07/02/24 14:03 Pulse Ox 97 07/02/24 14:03 Oxygen Delivery Method Room Air 07/02/24 14:03 BMI result Body Mass Index 22.8 Tobacco/Smoking Status: Tobacco use Status Tobacco use date assessed 07/02/24 07/02/24 14:06 Patient Tobacco Use Status Former Tobacco user 07/02/24 14:06 e-Cigarette/Vaping Use Never Used 07/02/24 14:06 PHQ-9: PHQ-9 Score PHQ-9: Total score 1 07/02/24 14:06 Depression Screening Interpretation: Negative Thrive Assessment: Date of Thrive Assessment Date Thrive assessed 07/02/24 07/02/24 14:06 Currently or been in a relationship where the following occur: I choose not to answer Const General: cooperative, comfortable and no acute distress Orientation/consciousness: patient oriented x3 HENMT Head: Yes normocephalic Eyes General: appearance normal, both eyes and all related structures Neck Neck: Yes supple Resp Effort & Inspection: normal respiratory effort, no cough and no stridor Cardio Rhythm: regular rhythm Heart sounds: S1 normal heart sound present and S2 normal heart sound present Skin General skin exam: turgor normal Neuro General: patient oriented x3, tone normal and moves all extremities Extrem Right lower extremity: no edema Left lower extremity: no edema Assessment and Plan Assessment & Plan (1) Pre-op evaluation: Code(s): Z01.818 - Encounter for other preprocedural examination (2) Cataract: Code(s): H26.9 - Unspecified cataract Qualifiers: Cataract type: age-related Age-related cataract type: other Laterality: bilateral Qualified Code(s): H25.89 - Other age-related cataract (3) Diabetes type 2, uncontrolled: Code(s): E11.65 - Type 2 diabetes mellitus with hyperglycemia Qualifiers: Glycemic state: with hyperglycemia Qualified Code(s): E11.65 - Type 2 diabetes mellitus with hyperglycemia (4) intermediate (current) use of insulin: Code(s): Z79.4 - intermediate (current) use of insulin Plan Patient is 59-year-old gentleman with uncontrolled diabetes Last hemoglobin A1c was 10.4 in April, which has come down to 9.0 Currently under care of endocrinology [facility] Fasting sugars are ranging around 180s We talked about better control of diet, especially round surgery Patient will be going in for cataract surgery right eye of this month and then left eye of this month By [facility] Blood pressure is controlled Patient offer no complaint There are no signs of infection Patient is stable for cataract surgery Coding Level of Care Code Est Pt Level 4 (24637) Diagnoses Pre-op evaluation Z01.818 Other age-related cataract of both eyes H25.89 Cataract type: age-related Age-related cataract type: other Laterality: bilateral Uncontrolled type 2 diabetes mellitus with hyperglycemia E11.65 Glycemic state: with hyperglycemia intermediate (current) use of insulin Z79.4 Additional Codes HASMUKH-7 Assessment Billing - HASMUKH-7 Assessment Tool: HASMUKH-7 Assessment 47890 ([id number])
[2024-07-02 14:03] VITALS: BP 110/68; PULSE 87; O2SAT 97; BMI 22.8
== END 2024-07-02 14:43 | disposition home or self-care (01) ==
PROVIDERS: PCP Internal Medicine; Visit Provider Internal Medicine
DX: Z01.818 Encounter for other preprocedural examination (principal); H25.89 Other age-related cataract; E11.65 Type 2 diabetes mellitus with hyperglycemia; Z79.4 Long term (current) use of insulin
CPT/HCPCS: 99214

== ENCOUNTER 2024-07-14 06:32 | Day surgery (SDC) | payer OTHER, SELFPAY ==
[2024-07-09 09:56] VITALS: BMI 22.8
--- NOTE | 2024-07-10 13:45 | P.CONAN_ITS ---
Documented by User: Zari Mendez NP 07/10/24 13:46 HPI - Anesthesia Eval Consult details Narrative: 59yo M for Right Cataract Extraction IOL Insertion No previous cataract on record Anesthesia Pre-Procedure Meds Is the patient on any of the following meds?: SGLT2 Inhib PMFSH Active Problems Active Problems: All Active Problems Cataract (Acute) Pre-op evaluation (Acute) Encounter for general adult medical examination with abnormal findings (Acute) Persistent dry cough (Acute) Lipid disorder (Acute) Diabetes mellitus (Acute) Diabetic neuropathy (Acute) Annual physical exam (Acute) GERD (gastroesophageal reflux disease) (Acute) Internal derangement of right shoulder (Acute) Sprain (Acute) Diabetes type 2, uncontrolled (Acute) Dyslipidemia (Acute) Vitamin D deficiency (Acute) B12 deficiency (Acute) 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 (Acute) Past Medical History Medical History Internal derangement of right shoulder Dyslipidemia Vitamin D deficiency B12 deficiency correction (current) use of insulin Diabetes type 2, uncontrolled Family History Family History Mother Diabetes Surgical History Surgical History Hx of appendectomy Social History Social History Housing: House Are you a primary janitor caretaker to a significant other at home: No Do you presently have visiting nurse or other home services: No Alcohol intake: never Patient Tobacco Use Status: Former Tobacco user e-Cigarette/Vaping Use: Never Used Second Hand Smoke Exposure: No Use of substances other than those prescribed or required for medical reasons: No Have you been hit, kicked, punched, or otherwise hurt by someone within the past year? 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 needs: No Hearing needs: No Vision needs: Yes (Glasses) Meds Allergies Allergy/AdvReac Type Severity Reaction Status Date / Time penicillin V Allergy Unknown Unknown Verified 07/14/24 06:41 Penicillins [PENICILLINS] Allergy Unknown UNKNOWN Verified 07/14/24 06:41 Sulfa (Sulfonamide Allergy Unknown UNKNOWN Verified 07/14/24 06:41 Antibiotics) [SULFA (SULFONAMIDE ANTIBIOTICS)] Exam Height,Weight and Vital Signs: Height 5 ft 5 in Weight 62.256 kg Assessment and Plan Assessment Anesthesia Assessment: Chart Reviewed Documented by User: Alanis Ponce MD 07/14/24 08:41 PMFSH Past Medical History Medical History Internal derangement of right shoulder Dyslipidemia Vitamin D deficiency B12 deficiency 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 Diabetes type 2, uncontrolled Family History Family History Mother Diabetes Surgical History Surgical History Hx of appendectomy History of Problems with Anesthesia: No Social History Social History Housing: House Are you a primary janitor caretaker to a significant other at home: No Do you presently have visiting nurse or other home services: No Alcohol intake: never Patient Tobacco Use Status: Former Tobacco user e-Cigarette/Vaping Use: Never Used Second Hand Smoke Exposure: No Use of substances other than those prescribed or required for medical reasons: No Have you been hit, kicked, punched, or otherwise hurt by someone within the past year? 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 needs: No Hearing needs: No Vision needs: Yes (Glasses) Meds Allergies Allergy/AdvReac Type Severity Reaction Status Date / Time penicillin V Allergy Unknown Unknown Verified 07/14/24 06:41 Penicillins [PENICILLINS] Allergy Unknown UNKNOWN Verified 07/14/24 06:41 Sulfa (Sulfonamide Allergy Unknown UNKNOWN Verified 07/14/24 06:41 Antibiotics) [SULFA (SULFONAMIDE ANTIBIOTICS)] Exam Airway Mallampati Class: III TM Dist: >3cm Neck ROM: Full Loose/Missing/Broken Teeth: No Heart: RRR Lungs: CTA Assessment and Plan Assessment Anesthesia Assessment: Anesthesia Plan Discussed Final Anesthetic Review History of Problems with Anesthesia: No NPO: Yes ASA Class: III Final Preanesthetic Review: Meds/Allgs Chart Reviewed, Consent Obtained/Reviewed and Anes Risks/Benef Reviewed Patient Risk: Low Procedure Risk: Low Anesthetic Plan Anesthetic Plan: MAC: Disposition: Standard PACU
[2024-07-14] MEDS: Tetracaine HCl/PF 0.5% Oph Sol 4 ML DROPS 1 DROP EYE-RIGHT (06:39)
[2024-07-14] MEDS: Cyclopentolate 1 % Ophth Sol 2 ML DRPBTL 1 DROP EYE-RIGHT ×3 (06:40→06:56)
[2024-07-14] MEDS: Tropicamide 1 % Ophth Sol 3 ML BTL 1 DROP EYE-RIGHT ×3 (06:42→06:58)
[2024-07-14 06:44] VITALS: BMI 23.1
[2024-07-14] MEDS: Ketorolac Tromethamine 0.5% Op 10 ML DROPS 1 DROP EYE-RIGHT ×3 (06:44→07:00)
[2024-07-14] MEDS: Phenylephrine HCL 2.5% Oph SoL 2 ML BOTTLE 1 DROP EYE-RIGHT ×3 (06:46→07:02)
[2024-07-14 06:48] VITALS: BP 122/75; PULSE 72; RESP 14; TEMP 36.1; O2SAT 98
[2024-07-14] MEDS: Lactated Ringers 500 ML 50 ML IV (06:55)
[2024-07-14 06:59] LABS: Glucose, Whole Blood 193 mg/dL (60-115)
--- NOTE | 2024-07-14 09:57 | MHC.SHP ---
Pre-Procedural Eval Section A - 24 Hr Update-Section A only Date of Service: 07/14/24 The patient is an INPATIENT: No Changes since office visit: No Cold of Flu in the past 2 weeks, No New Medical Problems, No Changes in Medication and No Patient answered all questions The patient has been examined within 24 hours of the surgical procedure. The History & Physical has been completed within 30 days and I have reviewed it.: Yes Section B - Complete if H&P > 30 days Chief Complaint: Age-related nuclear cataract, right eye Allergies: Allergies Allergy/AdvReac Type Severity Reaction Status Date / Time penicillin V Allergy Unknown Unknown Verified 07/14/24 06:41 Penicillins [PENICILLINS] Allergy Unknown UNKNOWN Verified 07/14/24 06:41 Sulfa (Sulfonamide Allergy Unknown UNKNOWN Verified 07/14/24 06:41 Antibiotics) [SULFA (SULFONAMIDE ANTIBIOTICS)] Plan Diagnosis/Plan: Unchanged I have reviewed the history and physical and performed a pertinent physical examination on my patient. No changes have occurred unless specified. Time Spent With Patient Time: Total time managing care of this patient today ____ minutes.
--- NOTE | 2024-07-14 09:57 | HO.PNOPHT ---
Ophthalmology Procedure Procedure Date of Service: 07/14/24 Ophthalmology Viscoelastic: Healon Duet Dual Pack Pro Ophthalmology Lenses: IOL Acrysof MP - MA60AC (23.5) Procedure Notes: PREOPERATIVE DIAGNOSIS: Decreased visual acuity right eye secondary to cataract POSTOPERATIVE DIAGNOSIS: Same PROCEDURE: Right cataract extraction with intraocular lens insertion SURGEON: Benjamín Valdes M.D. ANESTHESIA: Topical/MAC ESTIMATED BLOOD LOSS: None COMPLICATIONS: Haptic tore out, IOL exchanged After obtaining informed consent, the patient was brought to the operating room suite and placed in the supine position. After adequate sedation per anesthesia, topical drops of Tetracaine were given to the right eye. The eye was then prepped and draped in the usual sterile fashion. The operating room microscope was then positioned over the operative eye and a lid speculum placed. A paracentesis was created. Viscoelastic was then instilled into the anterior chamber. A three plane incision was then created temporally, utilizing a 2.85 mm keratome. Capsulotomy forceps were then utilized to create a circular tear capsulotomy. Hydrodissection and hydrodelineation were carried out until adequate mobilization of the nucleus occurred. Phacoemulsification was then utilized to remove the dense central nucleus followed by removal of the cortical material utilizing the automated aspiration irrigation unit. Viscoelastic was instilled into the posterior capsular bag followed by placement of a posterior chamber intraocular lens. The trailig haptic was dislodged requirng an IOL exchange. The PCIOL was placed into the capsular bag without difficulty. The residual Viscoelastic was then removed utilizing the automated IA machine. The wound was checked and found to be watertight. The patient tolerated the procedure well and the lid speculum was removed. Intracameral injection of Vigamox 0.1 mL followed by a subtenon injection of Kenalog-40 0.2 mL were administered. The patient will be seen in the a.m.
[2024-07-14 10:28] VITALS: BP 126/80; PULSE 66; RESP 18; TEMP 36.1; O2SAT 100
== END 2024-07-14 10:43 | disposition home or self-care (01) ==
PROVIDERS: PCP Internal Medicine; Visit Provider Ophthalmology
PROC: (CPT 66985; principal; 2024-07-14 09:00)
DX: T85.29XA Other mechanical complication of intraocular lens, initial encounter (principal); H25.11 Age-related nuclear cataract, right eye; H54.7 Unspecified visual loss; Y83.1 Surgical operation with implant of artificial internal device as the cause of abnormal reaction of the patient, or of later complication, without mention of misadventure at the time of the procedure; Y92.234 Operating room of hospital as the place of occurrence of the external cause; Y77.2 Prosthetic and other implants, materials and accessory ophthalmic devices associated with adverse incidents; E11.9 Type 2 diabetes mellitus without complications; Z79.4 Long term (current) use of insulin; Z79.84 Long term (current) use of oral hypoglycemic drugs; Z79.899 Other long term (current) drug therapy; Z88.0 Allergy status to penicillin; Z88.2 Allergy status to sulfonamides; Z87.891 Personal history of nicotine dependence
CPT/HCPCS: 66984; 66986; 82947; J2250; J3010; J3301; V2630

== ENCOUNTER 2024-07-28 07:27 | Day surgery (SDC) | payer OTHER, SELFPAY ==
[2024-07-09 10:01] VITALS: BMI 22.8
--- NOTE | 2024-07-24 13:02 | P.CONAN_ITS ---
Documented by User: Zari Mendez NP 07/24/24 13:03 HPI - Anesthesia Eval Consult details Narrative: 59yo M for Left Cataract Extraction IOL Insertion Right eye 07/14/24: Fent 50, Midaz 1 Anesthesia Pre-Procedure Meds Is the patient on any of the following meds?: SGLT2 Inhib PMFSH Active Problems Active Problems: All Active Problems Cataract (Acute) Pre-op evaluation (Acute) Encounter for general adult medical examination with abnormal findings (Acute) Persistent dry cough (Acute) Lipid disorder (Acute) Diabetes mellitus (Acute) Diabetic neuropathy (Acute) Annual physical exam (Acute) GERD (gastroesophageal reflux disease) (Acute) Internal derangement of right shoulder (Acute) Sprain (Acute) Diabetes type 2, uncontrolled (Acute) Dyslipidemia (Acute) Vitamin D deficiency (Acute) B12 deficiency (Acute) 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 (Acute) Past Medical History Medical History Internal derangement of right shoulder Dyslipidemia Vitamin D deficiency B12 deficiency jail (current) use of insulin Diabetes type 2, uncontrolled Family History Family History Mother Diabetes Surgical History Surgical History Hx of appendectomy History of Problems with Anesthesia: No Social History Social History Housing: House Are you a primary resident care technician to a significant other at home: No Do you presently have visiting nurse or other home services: No Alcohol intake: never Patient Tobacco Use Status: Former Tobacco user e-Cigarette/Vaping Use: Never Used Second Hand Smoke Exposure: No Use of substances other than those prescribed or required for medical reasons: No Have you been hit, kicked, punched, or otherwise hurt by someone within the past year? 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 Cognitive needs: No Hearing needs: No Vision needs: Yes (Glasses) Meds Allergies Allergy/AdvReac Type Severity Reaction Status Date / Time penicillin V Allergy Unknown Unknown Verified 07/28/24 07:47 Penicillins [PENICILLINS] Allergy Unknown UNKNOWN Verified 07/28/24 07:47 Sulfa (Sulfonamide Allergy Unknown UNKNOWN Verified 07/28/24 07:47 Antibiotics) [SULFA (SULFONAMIDE ANTIBIOTICS)] Exam Height,Weight and Vital Signs: Height 5 ft 5 in Weight 62.256 kg Assessment and Plan Assessment Anesthesia Assessment: Chart Reviewed Final Anesthetic Review History of Problems with Anesthesia: No Documented by User: Wanda Cantu MD 07/28/24 08:43 PMFSH Past Medical History Medical History Internal derangement of right shoulder Dyslipidemia Vitamin D deficiency B12 deficiency jail (current) use of insulin Diabetes type 2, uncontrolled Family History Family History Mother Diabetes Family history of problems with anesthesia: No Surgical History Surgical History Hx of appendectomy Social History Social History Housing: House Are you a primary resident care technician to a significant other at home: No Do you presently have visiting nurse or other home services: No Alcohol intake: never Patient Tobacco Use Status: Former Tobacco user e-Cigarette/Vaping Use: Never Used Second Hand Smoke Exposure: No Use of substances other than those prescribed or required for medical reasons: No Have you been hit, kicked, punched, or otherwise hurt by someone within the past year? 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 Cognitive needs: No Hearing needs: No Vision needs: Yes (Glasses) Meds Allergies Allergy/AdvReac Type Severity Reaction Status Date / Time penicillin V Allergy Unknown Unknown Verified 07/28/24 07:47 Penicillins [PENICILLINS] Allergy Unknown UNKNOWN Verified 07/28/24 07:47 Sulfa (Sulfonamide Allergy Unknown UNKNOWN Verified 07/28/24 07:47 Antibiotics) [SULFA (SULFONAMIDE ANTIBIOTICS)] Exam Airway Mallampati Class: II TM Dist: >3cm Neck ROM: Full Heart: rrr Lungs: cta Assessment and Plan Assessment Anesthesia Assessment: Anesthesia Plan Discussed Final Anesthetic Review Family History of Problems with Anesthesia: No NPO: Yes ASA Class: III Final Preanesthetic Review: No Changes in Pt Med Stat, Meds/Allgs Chart Reviewed, Consent Obtained/Reviewed and Anes Risks/Benef Reviewed Patient Risk: Intermediate Procedure Risk: Low Anesthetic Plan Anesthetic Plan: MAC: Disposition: Standard PACU
[2024-07-28 08:06] LABS: Glucose, Whole Blood 220 mg/dL (60-115)
[2024-07-28] MEDS: Tetracaine HCl/PF 0.5% Oph Sol 4 ML DROPS 1 DROP EYE-LEFT (08:18)
[2024-07-28] MEDS: Cyclopentolate 1 % Ophth Sol 2 ML DRPBTL 1 DROP EYE-LEFT ×3 (08:21→08:29)
[2024-07-28] MEDS: Tropicamide 1 % Ophth Sol 3 ML BTL 1 DROP EYE-LEFT ×3 (08:22→08:30)
[2024-07-28] MEDS: Ketorolac Tromethamine 0.5% Op 10 ML DROPS 1 DROP EYE-LEFT ×3 (08:23→08:31)
[2024-07-28] MEDS: Phenylephrine HCL 2.5% Oph SoL 2 ML BOTTLE 1 DROP EYE-LEFT ×3 (08:24→08:31)
--- NOTE | 2024-07-28 08:27 | MHC.SHP ---
Pre-Procedural Eval Section A - 24 Hr Update-Section A only Date of Service: 07/28/24 The patient is an INPATIENT: No Changes since office visit: No Cold of Flu in the past 2 weeks, No New Medical Problems, No Changes in Medication and No Patient answered all questions The patient has been examined within 24 hours of the surgical procedure. The History & Physical has been completed within 30 days and I have reviewed it.: Yes Section B - Complete if H&P > 30 days Chief Complaint: Age-related nuclear cataract, left eye Allergies: Allergies Allergy/AdvReac Type Severity Reaction Status Date / Time penicillin V Allergy Unknown Unknown Verified 07/28/24 07:47 Penicillins [PENICILLINS] Allergy Unknown UNKNOWN Verified 07/28/24 07:47 Sulfa (Sulfonamide Allergy Unknown UNKNOWN Verified 07/28/24 07:47 Antibiotics) [SULFA (SULFONAMIDE ANTIBIOTICS)] Plan Diagnosis/Plan: Unchanged I have reviewed the history and physical and performed a pertinent physical examination on my patient. No changes have occurred unless specified. Time Spent With Patient Time: Total time managing care of this patient today ____ minutes.
--- NOTE | 2024-07-28 08:27 | HO.PNOPHT ---
Ophthalmology Procedure Procedure Date of Service: 07/28/24 Ophthalmology Viscoelastic: Healon Duet Dual Pack Pro Ophthalmology Lenses: IOL Acrysof MP - MA60AC (24) Procedure Notes: PREOPERATIVE DIAGNOSIS: Decreased visual acuity left eye secondary to cataract POSTOPERATIVE DIAGNOSIS: Same PROCEDURE: Left cataract extraction with intraocular lens insertion SURGEON: Benjamín Valdes M.D. ANESTHESIA: Topical/MAC ESTIMATED BLOOD LOSS: None COMPLICATIONS: None After obtaining informed consent, the patient was brought to the operation room suite and placed in the supine position. After adequate sedation per anesthesia, topical drops of Tetracaine were given to the left eye. The eye was then prepped and draped in the usual sterile fashion. The operating room microscope was then positioned over the operative eye and a lid speculum placed. A paracentesis was created. Viscoelastic was then instilled into the anterior chamber. A three plane incision was then created temporally, utilizing a 2.85 mm keratome. Capsulotomy forceps were then utilized to create a circular tear capsulotomy. Hydrodissection and hydrodelineation were carried out until adequate mobilization of the nucleus occurred. Phacoemulsification was then utilized to remove the dense central nucleus followed by removal of the cortical material utilizing the automated aspiration irrigation unit. Viscoat elastic was instilled into the posterior capsular bag followed by placement of a posterior chamber intraocular lens without difficulty. The residual Viscoat elastic was then removed utilizing the automated IA machine. The wound was check and found to be watertight. The patient tolerated the procedure well and the lid speculum was removed. Intracameral injection of Vigamox 0.1 mL followed by a subtenon injection of Kenalog-40 0.2 mL were administered. The patient will be seen in the a.m.
[2024-07-28] MEDS: Lactated Ringers 500 ML 50 ML IV (08:34)
[2024-07-28 08:35] VITALS: BP 125/81; PULSE 67; RESP 14; TEMP 35.9; O2SAT 99
[2024-07-28 08:56] VITALS: BP 132/74; PULSE 70; RESP 18; TEMP 36.6; O2SAT 100
== END 2024-07-28 09:06 | disposition home or self-care (01) ==
PROVIDERS: PCP Internal Medicine; Visit Provider Ophthalmology
PROC: (CPT 66985; principal; 2024-07-28 09:00)
DX: H25.12 Age-related nuclear cataract, left eye (principal); H54.7 Unspecified visual loss; E11.65 Type 2 diabetes mellitus with hyperglycemia; Z79.4 Long term (current) use of insulin; E78.00 Pure hypercholesterolemia, unspecified; E55.9 Vitamin D deficiency, unspecified; E53.8 Deficiency of other specified B group vitamins; Z79.84 Long term (current) use of oral hypoglycemic drugs; Z79.899 Other long term (current) drug therapy; Z88.0 Allergy status to penicillin; Z88.2 Allergy status to sulfonamides; Z87.891 Personal history of nicotine dependence
CPT/HCPCS: 66984; 82947; J2250; J3301; V2630

== ENCOUNTER 2024-09-04 07:49 | Outpatient (AMB) | payer OTHER, SELFPAY ==
--- NOTE | 2024-09-04 08:00 | A.OFFVIS_ITS ---
Vital Signs 09/04/24 08:04 Height 5 ft 5 in Weight 142 lb 3.17 oz BMI 23.7 BP 110/62 Blood Pressure Location Lt brachial Position Sitting Pulse 78 Pulse Source Pulse Oximeter Intake Visit Reasons: T2DM- per floyd Intake Note: Patient present today to follow up on Type 2 Diabetes Mellitus. Patient receives DME supplies through: Pharmacy Last Diabetic Eye exam: approx 2-3 weeks Last Podiatry Visit: Does not see a E Commerce Manager Random Glucose: 143 mg/dl HgA1C: 9.2% 09/04/2024 Nickel Operator Required: No Accompanied by: Self / Same As Patient Allergies penicillin V Allergy (Unknown, Verified 09/04/24 08:05) Unknown Penicillins [PENICILLINS] Allergy (Unknown, Verified 09/04/24 08:05) UNKNOWN Sulfa (Sulfonamide Antibiotics) [SULFA (SULFONAMIDE ANTIBIOTICS)] Allergy (Unknown, Verified 09/04/24 08:05) UNKNOWN HPI Comments Details: Patient is a 58 year male with DM type 2 diagnosed in 2005 who presents for management of diabetes. Past medical history: DM 2 Hyperlipidemia iron deficiency anemia B12 deficiency Micro and macrovascular complications: none known. Diabetes medications: Tresiba 22 units at bedtime, metformin 1000 twice a day . Jardiance 25 mg QD Novolog 14 units with breakfast, 14 units lunch and 16 units with dinner. Continuous glucose monitoring: Gregg download shows he is usually a sensor 89% of the time. Average glucose is 219 with G mi of 8.5% and variability 31.1%. 30% range with 39% hyperglycemia and 31% very hyperglycemic and no hypoglycemia. Pen shows elevation in point of care post-meal Symptoms reported: denies numbness, tingling, cramping in lower extremities Hypoglycemia: rare - twice a wk . Hyperglycemia: denies urinary frequency, +nocturia 1x, polydypsia Exercise: Treadmill 3 times a week, 15-30 minutes Private Eye - CDE education: yes, awhile ago E Commerce Manager: none Dental exam: 2 weeks ago, goes every 3 months. Ophthalmology evaluation: appt last mo cataract surgery Other specialists: none Laboratory Tests 01/05/22 01/09/22 01/09/22 08:56 07:50 07:55 Creatinine 0.88 Estimated GFR > 60 Hgb A1c (Clinic) 8.0 H Hemoglobin A1c % Triglycerides 158 Cholesterol 139 LDL Cholesterol Direct LDL Cholesterol, Calc 72 HDL Cholesterol 36 D Microalb/Creat Ratio TNP 01/09/22 01/09/22 07:55 07:55 Creatinine Estimated GFR Hgb A1c (Clinic) Hemoglobin A1c % 8.1 Triglycerides Cholesterol LDL Cholesterol Direct 84 LDL Cholesterol, Calc HDL Cholesterol Microalb/Creat Ratio [facility] Medical History Internal derangement of right shoulder Dyslipidemia Vitamin D deficiency B12 deficiency 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 Diabetes type 2, uncontrolled Surgical History Hx of cataract surgery Hx of appendectomy Family History Mother Diabetes Social History Housing: House Are you a primary home care and home health aides teacher to a significant other at home: No Do you presently have visiting nurse or other home services: No Alcohol intake: never Patient Tobacco Use Status: Former Tobacco user e-Cigarette/Vaping Use: Never Used Second Hand Smoke Exposure: No service: No Current occupational status: employed 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 Absence of acromegalic features. Neck exam reveals nl size thyroid about 15 gms. No thyroid nodules palpable. No carotid bruits present. Lungs CTA. Heart S1 S2, Reg R/R. No M/R/ G. Skin exam reveals absence of vitiligo or acanthosis nigricans. Abdominal exam reveals Soft NT/ND with NA BS. No organomegaly present. Neck Other: . Extrem Other: Visual exam of foot performed. No ulcerations or open lesions. No onchomycosis, no callouses.Pulses 2 + distally Sensation intact to monofilament exam. Vibratory sensation sensed is intact with 128 Hz tuning fork Results AMB Hemoglobin A1c AMB Hemoglobin A1c 9.2 % Last Edit by ELOISA Alberto on 09/04/24 08:31 Results Reviewed Results Reviewed: Laboratory Last Values Glucose (Clinic) 143 mg/dL (60-115) H 09/04/24 08:10 Assessment & Plan Assessment & Plan (1) Diabetes type 2, uncontrolled: Code(s): E11.65 - Type 2 diabetes mellitus with hyperglycemia Category: Medical Qualifiers: Glycemic state: with hyperglycemia Qualified Code(s): E11.65 - Type 2 diabetes mellitus with hyperglycemia Plan: This 58-year-old male with history of type 2 diabetes being treated with metformin, , Jardiance and basal-bolus insulin with worsening poor glycemic control with microvascular complications namely neuropathy. He could not tolerate it G LP 1 The plan is to switch patient back to Fiasp. I did tell patient that continues to experience post-prandial hyperglycemia increase the Fiasp by about 2 or 3 units before meals. If we can not achieve control with subcutaneous insulin injections, possibly transitioning to an insulin pump like an iLet might be an idea. He will follow-up with psychic reader and with Floyd Guan NP in 2 months Orders: Orders AMB Hemoglobin A1c Today E11.9 - Type 2 diabetes mellitus without complications Medications: New insulin aspart (niacinamide) 100 unit/mL (3 mL) (Fiasp FlexTouch U-100 Insulin) 14 units before breakfast , 14 units before lunch and 16 ints before dinner subcutaneously 3 times a day; 30 mL 4RF Discontinued insulin aspart U-100 (Novolog FlexPen U-100 Insulin aspart) Discontinued Reason: Doctor's Order 14 units before breakfast and lunch, 14-16 units before supper subcutaneously use as directed; 30 days 6 mL 11RF Coding Level of Care Code Est Pt Level 4 (62355) Complex EM visit Add On G2211 Diagnoses Uncontrolled type 2 diabetes mellitus with hyperglycemia E11.65 Glycemic state: with hyperglycemia
[2024-09-04 08:04] VITALS: BP 110/62; PULSE 78; BMI 23.7
[2024-09-04 08:16] LABS: Glucose, Whole Blood 143 mg/dL (60-115)
== END 2024-09-04 08:30 | disposition home or self-care (01) ==
LOC: HO.ENCR 07:50
PROVIDERS: PCP Internal Medicine; Visit Provider Internal Medicine Endocrinology, Diabetes & Metabolism
DX: E11.65 Type 2 diabetes mellitus with hyperglycemia (principal); E11.9 Type 2 diabetes mellitus without complications
CPT/HCPCS: 99214; G2211

== ENCOUNTER → 2024-09-04 07:49 | Outpatient (BNVA) | payer OTHER, SELFPAY | PROVIDERS: PCP Internal Medicine; Visit Provider Internal Medicine Endocrinology, Diabetes & Metabolism | DX: E11.65 Type 2 diabetes mellitus with hyperglycemia (principal); Z79.4 Long term (current) use of insulin | CPT/HCPCS: 82947; 83036; 99212 ==

== ENCOUNTER 2024-09-18 07:24 | Outpatient (AMB) | payer OTHER, SELFPAY ==
--- NOTE | 2024-09-18 07:56 | MHC.AMDMED ---
Intake Intake Visit Reasons: f/u Type 2 DM-confirmed Excavation Laborer Required: No Accompanied by: Self / Same As Patient Allergies penicillin V Allergy (Unknown, Verified 09/04/24 08:05) Unknown Penicillins [PENICILLINS] Allergy (Unknown, Verified 09/04/24 08:05) UNKNOWN Sulfa (Sulfonamide Antibiotics) [SULFA (SULFONAMIDE ANTIBIOTICS)] Allergy (Unknown, Verified 09/04/24 08:05) UNKNOWN HPI Comprehensive Diabetes Asmnt Most Recent Diabetes Results: Microalb/Creat Ratio 15.5 ug/mg cr (<30) 05/05/24 Cholesterol 149 mg/dL (<200) 05/05/24 HDL Cholesterol 35 mg/dL (>40) L 05/05/24 Triglycerides 129 mg/dL (<150) 05/05/24 Creatinine 0.80 mg/dL (0.5-1.4) 05/05/24 Blood Urea Nitrogen 10 mg/dL (9-16) 05/05/24 Sodium 138 mmol/L (135-145) 05/05/24 Potassium 4.5 mmol/L (3.3-5.1) 05/05/24 Chloride 103 mmol/L (96-108) 05/05/24 Carbon Dioxide 25 mmol/L (22-29) 05/05/24 Calcium 9.7 mg/dL (8.4-10.2) 05/05/24 AST 20 U/L (5-37) 05/05/24 ALT 19 U/L (0-40) 05/05/24 Total Protein 7.6 g/dL (6.5-8.0) 05/05/24 Albumin 4.2 g/dL (3.5-5.0) 05/05/24 [facility] Medical History Internal derangement of right shoulder Dyslipidemia Vitamin D deficiency B12 deficiency 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 Diabetes type 2, uncontrolled Surgical History Hx of cataract surgery Hx of appendectomy Family History Mother Diabetes Social History Housing: House Are you a primary healthcare project manager to a significant other at home: No Do you presently have visiting nurse or other home services: No Alcohol intake: never Patient Tobacco Use Status: Former Tobacco user e-Cigarette/Vaping Use: Never Used Second Hand Smoke Exposure: No service: No Current occupational status: employed 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 0% Hyperglycemia:? 22% Time in Range:?78% Average glucose for the last 2 weeks? 148 mg/dL Patient's last A1c on 09/04/2024 9.2% At last visit Dr. Sherwood discussed with patient starting on insulin pump therapy Since that appointment patient reports he has made significant adjustment in his meal plan Patient would like to wait until after next A1c to further discuss insulin pump Encourage patient to continue with modified meal plan, work to increase physical activity to assist with better glucose control Patient will follow-up with family living educator as needed Reviewed how to interpret trend arrows Reminded patient that to check finger sticks if symptoms do not match sensor reading. Discussed lag time between finger stick and sensor data.? Patient able to insert sensor independently at home without issue.? Portions of this note were created using voice recognition software, please excuse any words or phrases that may have been misinterpreted. Coding Level of Care Code Est Pt Level 1 (98011) Diagnoses Uncontrolled type 2 diabetes mellitus with hyperglycemia E11.65 Glycemic state: with hyperglycemia
== END 2024-09-18 08:00 | disposition home or self-care (01) ==
PROVIDERS: PCP Internal Medicine; Visit Provider Registered Nurse Diabetes Educator
DX: E11.65 Type 2 diabetes mellitus with hyperglycemia (principal)

== ENCOUNTER → 2024-09-18 07:24 | Outpatient (BNVA) | payer OTHER, SELFPAY | PROVIDERS: PCP Internal Medicine; Visit Provider Registered Nurse Diabetes Educator | DX: E11.65 Type 2 diabetes mellitus with hyperglycemia (principal) | CPT/HCPCS: 99211 ==

== ENCOUNTER 2024-11-06 07:28 | Outpatient (REF) | payer OTHER, SELFPAY ==
[2024-11-06 09:41] LABS: Anion Gap 11 (12-20); Blood Urea Nitrogen 16 mg/dL (9-16); Calcium 9.5 mg/dL (8.4-10.2); Carbon Dioxide 29 mmol/L (22-29); Chloride 105 mmol/L (96-108); Cholesterol 145 mg/dL (<200); Estimated Glomerular Filt Rate > 60; Glucose Fasting 166 mg/dL (60-99); HDL Cholesterol 37 mg/dL (>40); LDL Cholesterol Calculated 79 mg/dL (<100); Potassium 4.4 mmol/L (3.3-5.1); Sodium 141 mmol/L (135-145); Triglycerides 147 mg/dL (<150)
[2024-11-06 09:46] LABS: Vitamin D 25-OH Total 43.4 ng/mL (>30)
== END 2024-11-06 07:29 | disposition home or self-care (01) ==
LOC: HO.LAB 07:28
PROVIDERS: PCP Internal Medicine; Visit Provider Nurse Practitioner Adult Health
DX: E11.65 Type 2 diabetes mellitus with hyperglycemia (principal); E55.9 Vitamin D deficiency, unspecified; Z79.4 Long term (current) use of insulin
CPT/HCPCS: 36415; 80048; 80061; 82306; 82947; 99212

== ENCOUNTER 2024-11-06 07:28 | Outpatient (AMB) | payer OTHER, SELFPAY ==
--- NOTE | 2024-11-06 07:04 | MHC.OFFVIS ---
Vital Signs 11/06/24 07:37 Height 5 ft 5 in Weight 144 lb 6.444 oz BMI 24.0 BP 112/60 Blood Pressure Location Lt brachial Position Sitting Pulse 76 Pulse Source Pulse Oximeter Intake Visit Reasons: f/u Type 2 DM Intake Note: Patient present today to follow up on Type 2 Diabetes Mellitus. Last Diabetic Eye exam: 2 months ago Last Podiatry Visit: Does not see a Meat Stock Clerk Random Glucose: 187 mg/dl HgA1C: 9.2% 09/04/24 Legal Support Analyst Required: No Accompanied by: Self / Same As Patient Allergies penicillin V Allergy (Unknown, Verified 11/06/24 07:38) Unknown Penicillins [PENICILLINS] Allergy (Unknown, Verified 11/06/24 07:38) UNKNOWN Sulfa (Sulfonamide Antibiotics) [SULFA (SULFONAMIDE ANTIBIOTICS)] Allergy (Unknown, Verified 11/06/24 07:38) UNKNOWN HPI Comments Details: Patient is a 59 year male with DM type 2 diagnosed in 2005 who presents for management of diabetes. He was last seen by Dr. Sherwood on 09/04/2024 at which time his bolus insulin was increased and by Emilia DORSEY 08/2124. Going on a pump was briefly discussed at this visit and the patient decided he would like to wait until his next A1c is done. His last freestyle download did show an improvement in numbers in his average was 148. Hemoglobin A1c 09/04/2024 9.2%. Past medical history: DM 2 Hyperlipidemia iron deficiency anemia B12 deficiency Micro and macrovascular complications: none known. Diabetes medications: Tresiba 22 units at bedtime Fiasp 14-16 units metformin 1000 twice a day Jardiance 25 mg QD Freestyle violette sensor 3 average glucose: 169 14 day continuous glucose sensor report reviewed Glucose Management indicator 7.4 % Time CGM active 92 % TIme in ranges: 6 % very high (above 250) 31 % high (181-250) 63 % in range (70-180] 0 % low (69-55) 0 % very low (below 54) 26.9 Glucose variability (target <36%) Interpretation no lows baseline about 20 points above desired average Symptoms reported: denies numbness, tingling, cramping in lower extremities Hypoglycemia: none recent rare 70 Hyperglycemia: denies urinary frequency, +nocturia 1x, polydypsia Exercise: Treadmill 3 times a week, 15-30 minutes 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 No nephropathy 05/05/2024 microalbumin 7.0 eGFR>60 Ophthalmology evaluation: last appt 08/21 no retinopathy cataract surgery 08/21 LDL 89 on 06/01/2024 on statin low dose Other specialists: none TEJ: None prior ordered today [facility] screen Fibrosis-4 (Fib-4) Index for liver fibrosis (calculated on lab work done: 05/21 ) [ 1.19] points Advanced fibrosis [excluded ] Approximate Fibrosis stage Olga [0-1 ] *Use with caution in patients <35 or >65 years old, as the score has been shown to be less reliable in these patients. Prior Imaging ct abd 2020 no liver abnormalities Action Plan: rescreen two years from date of screening labs 05/23 [facility] Medical History Internal derangement of right shoulder Dyslipidemia Vitamin D deficiency B12 deficiency custodial (current) use of insulin Diabetes type 2, uncontrolled Surgical History Hx of cataract surgery Hx of appendectomy Family History Mother Diabetes Social History Housing: House Are you a primary critical care physician to a significant other at home: No Do you presently have visiting nurse or other home services: No Alcohol intake: never Patient Tobacco Use Status: Former Tobacco user e-Cigarette/Vaping Use: Never Used Second Hand Smoke Exposure: No service: No Current occupational status: employed 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 Absence of acromegalic features. Neck exam reveals nl size thyroid about 15 gms. No thyroid nodules palpable. No carotid bruits present. Lungs CTA. Heart S1 S2, Reg R/R. No M/R G. Skin exam reveals absence of vitiligo or acanthosis nigricans. No edema Visual exam of foot performed. No ulcerations or open lesions. No inter digit maceration or fissuring. No onychomycosis, no callouses. Sensation intact to monofilament exam. Vibratory sensation is normal with 128 Hz tuning fork. Office Procedures Glucose Monitoring Details Details: see [facility] [id number] - Glucose monitoring, continuous-physician I&R Procedure code (CPT) selection complete Assessment & Plan Assessment & Plan (1) Diabetes type 2, uncontrolled: Code(s): E11.65 - Type 2 diabetes mellitus with hyperglycemia Category: Medical Qualifiers: Glycemic state: with hyperglycemia Qualified Code(s): E11.65 - Type 2 diabetes mellitus with hyperglycemia Plan: This 59-year-old male with history of type 2 diabetes being treated with metformin, , Jardiance and basal-bolus insulin with worsening poor glycemic control with microvascular complications namely neuropathy. He could not tolerate it G LP 1 agonist. His most recent A1c was 9.2% on 09/04/2024. Today's 14 day average shows improvement with a GME my of 7.4%. He will increase Tresiba to 24 units Add 15 min exercise in the evening New dosing Tresiba 24 units at bedtime Fiasp 14-16 units metformin 1000 twice a day Jardiance 25 mg QD TEJ ordered labs ordered LDL 89 above desired will recheck profile and consider increasing statin The patient had an opportunity to ask questions regarding treatment plan. The patient expressed understanding and agreement with the above treatment plan. The patient is aware they should contact our office by phone for worsening glucose readings or for any low blood sugars which may warrant a change in diabetes medication. Compliance is encouraged with medications and any followup testing/consults which may have been ordered. (2) Vitamin D deficiency: Code(s): E55.9 - Vitamin D deficiency, unspecified Category: Medical Plan: Has a history of low D currently not on replacement. will check vitamin-D level (3) Peripheral Vascular Disease: Code(s): I73.9 - Peripheral vascular disease, unspecified Plan: r/o check tej per ada recommentations Orders: Orders US TEJ complete Today I73.9 - Peripheral vascular disease, unspecified Lipid Panel Today E11.65 - Type 2 diabetes mellitus with hyperglycemia Basic Metabolic Panel Fasting Today E11.65 - Type 2 diabetes mellitus with hyperglycemia Vitamin D 25-OH Total Today E55.9 - Vitamin D deficiency, unspecified AMB Glucose Monitoring Today E11.65 - Type 2 diabetes mellitus with hyperglycemia Medications: Changed From insulin aspart (niacinamide) 100 unit/mL (3 mL) (Fiasp FlexTouch U-100 Insulin) 14 units before breakfast , 14 units before lunch and 16 ints before dinner subcutaneously 3 times a day; 30 mL 4RF To insulin aspart (niacinamide) 100 unit/mL (3 mL) (Fiasp FlexTouch U-100 Insulin) 14-16 units tid before meals 90 days 45 mL 4RF Patient Instructions: The patient was counseled to always carry a source of sugar and on the rule of 15's: Take 3 glucose tablets and repeat again in 15 minutes if blood sugar is not in normal range. Continue to repeat every 15 minutes until blood sugar is normal. The patient was counseled to achieve a target A1C of 7% (154 avg). Fasting blood sugars should be 90-130 in the morning and less than 180 two hours after meals. Reviewed the relationship between poor diabetic control and the development of complications. Check your feet daily looking for any signs of infection, ulceration and seek medical attention if this occurs. Break in shoes gradually and do not wear open-toed shoes or walk barefooted. Coding Level of Care Code Est Pt Level 4 (27477) Diagnoses Uncontrolled type 2 diabetes mellitus with hyperglycemia E11.65 Glycemic state: with hyperglycemia Vitamin D deficiency E55.9 Peripheral Vascular Disease I73.9 CPT Codes Details - CPT: 30161 - Glucose monitoring, continuous-physician I&R ([id number]) Time Spent (min) 40 Comment Time spent reviewing labs/provider notes, glucose,sensor reports, face to face, chart doc
[2024-11-06 07:37] VITALS: BP 112/60; PULSE 76; BMI 24.0
[2024-11-06 07:47] LABS: Glucose, Whole Blood 187 mg/dL (60-115)
== END 2024-11-06 08:15 | disposition home or self-care (01) ==
PROVIDERS: PCP Internal Medicine; Visit Provider Nurse Practitioner Adult Health
DX: E11.65 Type 2 diabetes mellitus with hyperglycemia (principal); E55.9 Vitamin D deficiency, unspecified; I73.9 Peripheral vascular disease, unspecified
CPT/HCPCS: 95251; 99214

== ENCOUNTER 2024-12-16 11:34 | Outpatient (AMB) | payer OTHER, SELFPAY ==
[2024-12-16 11:46] VITALS: BP 120/70; PULSE 88; TEMP 36.7; O2SAT 97; BMI 24.5
--- NOTE | 2024-12-16 11:46 | AM.OFFWIN_ITS ---
Intake Vital Signs 12/16/24 11:46 Height 5 ft 5 in Weight 147 lb BMI 24.5 BP 120/70 Blood Pressure Location Rt brachial Position Sitting Pulse 88 Pulse Source Pulse Oximeter Temp 98.0 F Temp Source Oral Pulse Oximetry (%) 97 Oxygen Delivery Method Room Air Intake Visit Reasons: EP Swelling in face Intake Note: Patient here for face swelling that has been present for 1 week. Patient Tobacco Use Status: Former Tobacco user Allergies penicillin V Allergy (Unknown, Verified 12/16/24 11:49) Unknown Penicillins [PENICILLINS] Allergy (Unknown, Verified 12/16/24 11:49) UNKNOWN Sulfa (Sulfonamide Antibiotics) [SULFA (SULFONAMIDE ANTIBIOTICS)] Allergy (Unknown, Verified 12/16/24 11:49) UNKNOWN Do you need a note to return to daycare/school/sports/work: No HPI HPI Comments History of Present Illness Details History of Present Illness The patient is a 59-year-old male presenting with mild facial swelling as noted by his and child. - Facial swelling noted approximately on e week ago, primarily over the entire facial region. - Negative for associated symptoms such as itching, throat tightness, or rash. Denies fevers, shortness of breath or trouble breathing - No previous episodes of similar swelli ng reported. - No recent new medications. - Dietary change includes recent ingesti on of tammy seeds about a week ago. - Medical history includes diabetes with recent lab results showing slightly elevated glucose levels, but normal kidney function. Physical Exam General: Cooperative, healthy appearing, comfortable, no acute distress and well developed Orientation: Patient oriented x3 Limitations: No limitations Head: Normal to inspection Ears: Hearing grossly normal bilaterally Nose: Normal external nose present Face and sinus: slight swelling in cheeks, no sinus pain Eyes: Appearance normal, both eyes and all related structures Neck: Normal visual inspection and Yes full ROM Respiratory: Normal respiratory effort and able to speak in complete sentences. Clear to auscultation bilaterally Cardiovascular: Regular rate and rhythm. Normal S1 and S2 Skin: no rashes or lesions noted Neuro: Patient oriented x3 Extremities: Normal to inspection [facility] Medical History (Updated 12/16/24 @ 11:54 by Lisbeth Lynn PA-C) Internal derangement of right shoulder Dyslipidemia Vitamin D deficiency B12 deficiency longterm (current) use of insulin Diabetes type 2, uncontrolled Surgical History Hx of cataract surgery Hx of appendectomy Family History Mother Diabetes Social History Housing: House Are you a primary clinical care leader to a significant other at home: No Do you presently have visiting nurse or other home services: No Alcohol intake: never Patient Tobacco Use Status: Former Tobacco user e-Cigarette/Vaping Use: Never Used Second Hand Smoke Exposure: No service: No Current occupational status: employed 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 Cognitive needs: No Hearing needs: No Vision needs: Yes (Glasses) Review of Systems Const All systems reviewed & are unremarkable except as noted in HPI and below Physical Exam Vital Signs: Last Vital Signs Temp 98.0 F 12/16/24 11:46 Pulse 88 12/16/24 11:46 BP 120/70 12/16/24 11:46 Pulse Ox 97 12/16/24 11:46 Oxygen Delivery Method Room Air 12/16/24 11:46 BMI result Body Mass Index 24.5 Assessment & Plan Assessment & Plan (1) Facial swelling: Code(s): R22.0 - Localized swelling, mass and lump, head Plan: I suspect the mild, subtle facial swelling may be due to an allergic reaction potentially linked to the recent consumption of tammy seeds. Thus, I advised the patient to discontinue tammy seeds. To manage and reduce the swelling, I prescribed prednisone, a steroid, for a duration of five days. The intent is to alleviate symptoms if they are indeed allergic in nature. If the prednisone mitigates the swelling, it would suggest an allergic component. In the absence of improvement, I recommended the patient follow up with Dr. Wylie for additional evaluation/further workup. No acute respiratory distress was noted during this visit. Patient was informed and verbally consented to the use of an ambient scribe for clinic note documentation during this visit. Medications: New prednisone 20 mg PO QAM 5 tabs 0RF Coding Level of Care Code Est Pt Level 3 (67851) Diagnoses Facial swelling R22.0
== END 2024-12-16 11:56 | disposition home or self-care (01) ==
PROVIDERS: PCP Internal Medicine; Visit Provider Physician Assistant
DX: R22.0 Localized swelling, mass and lump, head (principal)

== ENCOUNTER → 2024-12-16 11:34 | Outpatient (BNVA) | payer OTHER, SELFPAY | PROVIDERS: PCP Internal Medicine | DX: R22.0 Localized swelling, mass and lump, head (principal) | CPT/HCPCS: 99212 ==

== ENCOUNTER 2024-12-26 07:59 | Outpatient (AMB) | payer OTHER, SELFPAY ==
[2024-12-26 08:09] VITALS: BP 120/72; PULSE 79; O2SAT 98
--- NOTE | 2024-12-26 08:09 | A.OFFPC_ITS ---
Vital Signs 12/26/24 08:09 Weight 143 lb BP 120/72 Blood Pressure Location Lt brachial Position Sitting Pulse 79 Pulse Source Pulse Oximeter Pulse Oximetry (%) 98 Oxygen Delivery Method Room Air Intake Visit Reasons: Facial swelling Allergies penicillin V Allergy (Unknown, Verified 12/26/24 08:10) Unknown Penicillins [PENICILLINS] Allergy (Unknown, Verified 12/26/24 08:10) UNKNOWN Sulfa (Sulfonamide Antibiotics) [SULFA (SULFONAMIDE ANTIBIOTICS)] Allergy (Unknown, Verified 12/26/24 08:10) UNKNOWN Medication List - Last Reconciled 12/26/24 by Marisela Wylie MD acetone (urine) test (Ketone Urine Test strips) As directed blood sugar diagnostic (FreeStyle Precision [place] Strips) As directed four times a day blood-glucose meter,continuous (FreeStyle Gregg 3 [place]) As directed blood-glucose sensor (FreeStyle Gregg 3 Plus Sensor device) As directed prn empagliflozin (Jardiance) 25 mg PO DAILY famotidine 20 mg PO BEDTIME flash glucose scanning reader (FreeStyle Gregg 2 [place]) check three times a day flash glucose sensor (FreeStyle Gregg 2 Sensor kit) USE DIRECTED TO CHECK BLOOD SUGAR. CHANGE EVERY 14 DAYS. glucagon (Glucagon Emergency Kit) 1 mg subcut Q20M PRN insulin aspart (niacinamide) 100 unit/mL (3 mL) (Fiasp FlexTouch U-100 Insulin) 14-16 units tid before meals 90 days insulin degludec (Tresiba FlexTouch U-200 insulin) 22 units (0.11 mL) subcut BEDTIME 90 days metformin 1,000 mg PO BID pantoprazole 20 mg PO DAILY 90 days pen needle, diabetic (BD Juanita 2nd Gen Pen Needle) 5 times a day simvastatin 20 mg PO BEDTIME Tobacco use date assessed: 12/26/24 Dental Screening Dental Screen Date: 12/26/24 Did you have a dental visit in the last 12 months?: Yes Did you have a dental problem in the last 6 months where you did not have access to dental care?: No Was dental information given to patient?: Patient has dentist HPI Facial swelling HPI Details History - The patient is a 59-year-old male pres enting with feeling of facial swelling. - Swelling has been noticed for a durati on of one month to a month and a half, with gradual improvement noted. - The patient has not experienced any na benita symptoms or cheek pain associated with the swelling. - Prednisone was previously administered for resolution of swelling, yielding a beneficial effect. In walk-in clinic few days ago - [facility] one and a half months prior, apparently unrelated to current symptoms. - s test results indicating slightly low HDL levels. With LDL of 78 - The patient reports high blood glucose levels, with concerns related to diabetic control. Current A1c is indicated to be less than previous levels, approximately less than 8.0. 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 He has no pain today and his exam is benign Patient was instructed to start wearing a back belt the days he is scheduled to do some heavy lifting Problem List - Facial Swelling - Elevated Blood Glucose (Hyperglycemia) - Kidney Concerns (Rule Out) - Dyslipidemia - sore back Patient Instructions - Monitor your blood glucose levels and try to maintain them under 7 if possible. - Consider including more nuts in your d iet to help with your cholesterol. - Wear a supportive belt when engaging i n lifting activities to prevent back discomfort. - if back pain persists or gets worse, p atient is to get back to me - reassurance provided regarding feeling of swelling over his cheeks both sides Review of Systems. - General: No fever no chills - Neurological: No headaches no dizziness - Ear nose throat: No sore throat no hearing difficulty no ear pain - Cardiovascular: No syncope, no chest pain, no palpitations - Gastrointestinal: No nausea vomiting or diarrhea - Endocrine: No polyuria polydipsia no heat intolerance - Genitourinary: No dysuria , no blood in urine Physical Exam General: No acute distress HEENT: No Facial swelling noted, no pain in cheeks, no discomfort in chewing or eating, ear exam within normal limit Neck: Supple Respiratory system: Able to talk in full sentences, no audible wheeze cardiovascular: S1-S2 regular in rate and rhythm Gastrointestinal: No pain Back: No pain with percussion midline or on the sides, no CVAT Extremities: No new findings AIR CARRIER INSPECTOR: Alert awake oriented x3 motor sensory intact Skin: Normal turgor [facility] Medical History Internal derangement of right shoulder Dyslipidemia Vitamin D deficiency B12 deficiency half-way (current) use of insulin Diabetes type 2, uncontrolled Surgical History Hx of cataract surgery Hx of appendectomy Family History Mother Diabetes Social History Housing: House Are you a primary health care law specialist to a significant other at home: No Do you presently have visiting nurse or other home services: No Alcohol intake: never Patient Tobacco Use Status: Former Tobacco user e-Cigarette/Vaping Use: Never Used Second Hand Smoke Exposure: No service: No Current occupational status: employed 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 1. Little interest or pleasure in doing things: several days 2. Feeling down, depressed, or hopeless: several days 3. Trouble falling or staying asleep, or sleeping too much: not at all 4. Feeling tired or having little energy: not at all 5. Poor appetite or overeating: not at all 6. Feeling bad about yourself - or that you are a failure or have let yourself or your family down: not at all 7. Trouble concentrating on things, such as reading the newspaper or watching television: not at all 8. Moving or speaking so slowly that other people could have noticed. Or the opposite - being so fidgety or restless that you have been moving around a lot more than usual: not at all 9. Thoughts that you would be better off or of hurting yourself in some way: not at all Total score: 2 Depression Screening Interpretation: Negative Depression Screening Done: Yes [id number] - PHQ-9 Billing: Yes Source: Developed by Drs. John Loene, Liliana Sauer, Bebeto Lehman and colleagues, with an educational nilesh from [employer]. Thrive Questionnaire Date Thrive assessed: 12/26/24 AUDIT C Alcohol Use Questionnaire (AUDIT-C) 1. How often do you have a drink containing alcohol?: Never 3. How often do you have six or more drinks on one occasion?: Never Total Score: 0 Score Reviewed/Action Taken: Yes HASMUKH-7 AMB Questionnaire HASMUKH-7 Date HASMUKH - 7 assessed: 07/02/24 Source: Developed by Drs. John Leone, Liliana Sauer, Bebeto Lehman and colleagues, with an educational nilesh from [employer]. Physical exam (Primary Care) Vital Signs: Last Vital Signs Pulse 79 12/26/24 08:09 BP 120/72 12/26/24 08:09 Pulse Ox 98 12/26/24 08:09 Oxygen Delivery Method Room Air 12/26/24 08:09 Tobacco/Smoking Status: Tobacco use Status Tobacco use date assessed 12/26/24 12/26/24 08:11 Patient Tobacco Use Status Former Tobacco user 12/26/24 08:11 e-Cigarette/Vaping Use Never Used 12/26/24 08:11 PHQ-9: PHQ-9 Score PHQ-9: Total score 2 12/26/24 08:28 Depression Screening Interpretation: Negative Thrive Assessment: Date of Thrive Assessment Date Thrive assessed 12/26/24 12/26/24 08:11 Coding Level of Care Code Est Pt Level 4 (46528) Diagnoses Health counseling Z71.9 Discomfort of back M54.9 Anxiety about health R45.89 Uncontrolled type 2 diabetes mellitus with hyperglycemia E11.65 Diabetes mellitus type: type 2 Glycemic state: with hyperglycemia Additional Codes PHQ-9 - 52190 - PHQ-9 Billing: Yes ([id number]) Assessment & Plan Assessment & Plan (1) Health counseling: Code(s): Z71.9 - Counseling, unspecified Category: Medical (2) Discomfort of back: Code(s): M54.9 - Dorsalgia, unspecified Category: Medical (3) Anxiety about health: Code(s): R45.89 - Other symptoms and signs involving emotional state Category: Medical (4) Uncontrolled diabetes mellitus: Category: Medical Qualifiers: Diabetes mellitus type: type 2 Glycemic state: with hyperglycemia Qualified Code(s): E11.65 - Type 2 diabetes mellitus with hyperglycemia Plan History - The patient is a 59-year-old male presenting with feeling of facial swelling. - Swelling has been noticed for a duration of one month to a month and a half, with gradual improvement noted. - The patient has not experienced any nasal symptoms or cheek pain associated with the swelling. - Prednisone was previously administered for resolution of swelling, yielding a beneficial effect. In walk-in clinic few days ago - A cataract surgery was conducted approximately one and a half months prior, apparently unrelated to current symptoms. - s test results indicating slightly low HDL levels. With LDL of 78 - The patient reports high blood glucose levels, with concerns related to diabetic control. Current A1c is indicated to be less than previous levels, approximately less than 8.0. 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 He has no pain today and his exam is benign Patient was instructed to start wearing a back belt the days he is scheduled to do some heavy lifting Problem List - Facial Swelling - Elevated Blood Glucose (Hyperglycemia) - Kidney Concerns (Rule Out) - Dyslipidemia - sore back Patient Instructions - Monitor your blood glucose levels and try to maintain them under 7 if possible. - Consider including more nuts in your diet to help with your cholesterol. - Wear a supportive belt when engaging in lifting activities to prevent back discomfort. - if back pain persists or gets worse, patient is to get back to me - reassurance provided regarding feeling of swelling over his cheeks both sides
== END 2024-12-26 08:43 | disposition home or self-care (01) ==
PROVIDERS: PCP Internal Medicine; Visit Provider Internal Medicine
DX: Z71.9 Counseling, unspecified (principal); M54.9 Dorsalgia, unspecified; R45.89 Other symptoms and signs involving emotional state; E11.65 Type 2 diabetes mellitus with hyperglycemia

== ENCOUNTER → 2024-12-26 07:59 | Outpatient (BNVA) | payer OTHER, SELFPAY | PROVIDERS: PCP Internal Medicine; Visit Provider Internal Medicine | DX: M54.9 Dorsalgia, unspecified (principal); R45.89 Other symptoms and signs involving emotional state; E11.65 Type 2 diabetes mellitus with hyperglycemia; Z71.9 Counseling, unspecified | CPT/HCPCS: 96127; 99212 ==

== ENCOUNTER 2025-02-05 08:53 | Outpatient (AMB) | payer OTHER, SELFPAY ==
--- NOTE | 2025-02-05 08:59 | MHC.OFFVIS ---
Vital Signs 02/05/25 09:05 Height 5 ft 5 in Weight 141 lb 12.116 oz BMI 23.6 BP 100/62 Blood Pressure Location Rt brachial Position Sitting Pulse 85 Pulse Source Pulse Oximeter Pulse Oximetry (%) 97 Oxygen Delivery Method Room Air Intake Visit Reasons: T2DM f/u w/Dr. Sherwood Intake Note: Patient present today to follow up on Type 2 Diabetes Mellitus. Last Diabetic Eye exam: Had Cataract surgery in August 2024, has an appointment in 2 weeks. Last Podiatry Visit: Does not see a Extrusion Press Adjuster Random Glucose: 151 mg/dl HgA1C: 8.7% 02/05/2025 Manager Transmission Required: No Accompanied by: Self / Same As Patient Allergies penicillin V Allergy (Unknown, Verified 02/05/25 09:07) Unknown Penicillins [PENICILLINS] Allergy (Unknown, Verified 02/05/25 09:07) UNKNOWN Sulfa (Sulfonamide Antibiotics) [SULFA (SULFONAMIDE ANTIBIOTICS)] Allergy (Unknown, Verified 02/05/25 09:07) UNKNOWN Medication List - Last Reconciled 02/05/25 by John Sherwood MD acetone (urine) test (Ketone Urine Test strips) As directed blood sugar diagnostic (FreeStyle Precision Clarence Strips) As directed four times a day blood-glucose sensor (FreeStyle Gregg 3 Plus Sensor device) As directed prn blood-glucose,credit verification clerk,cont (FreeStyle Gregg 3 [place]) As directed empagliflozin (Jardiance) 25 mg PO DAILY famotidine 20 mg PO BEDTIME flash glucose scanning reader (FreeStyle Gregg 2 Dougherty) check three times a day flash glucose sensor (FreeStyle Gregg 2 Sensor kit) USE DIRECTED TO CHECK BLOOD SUGAR. CHANGE EVERY 14 DAYS. glucagon (Glucagon Emergency Kit) 1 mg subcut Q20M PRN insulin aspart (niacinamide) 100 unit/mL (3 mL) (Fiasp FlexTouch U-100 Insulin) 14-16 units tid before meals 90 days insulin degludec (Tresiba FlexTouch U-200 insulin) 22 units (0.11 mL) subcut BEDTIME 90 days metformin 1,000 mg PO BID pantoprazole 20 mg PO DAILY 90 days pen needle, diabetic (BD Juanita 2nd Gen Pen Needle) 5 times a day simvastatin 20 mg PO BEDTIME HPI Comments Details: Patient is a 59 year male with DM type 2 diagnosed in 2005 who presents for management of diabetes. Past medical history: DM 2 Hyperlipidemia iron deficiency anemia B12 deficiency Micro and macrovascular complications: none known. Diabetes medications: Tresiba 22 units at bedtime, metformin 1000 twice a day . Jardiance 25 mg QD Fiasp 14 units with breakfast, 14 units lunch and 16 units with dinner. Continuous glucose monitoring: Gregg download shows he is usually a sensor 95% of the time. Average glucose is 199 with G mi of 8.1% and variability 29%. 41% range with 39% hyperglycemia and 20% very hyperglycemic and no hypoglycemia. 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 Ophthalmology evaluation: appt in 2 wks Other specialists: none Laboratory Tests 01/05/22 01/09/22 01/09/22 08:56 07:50 07:55 Creatinine 0.88 Estimated GFR > 60 Hgb A1c (Clinic) 8.0 H Hemoglobin A1c % Triglycerides 158 Cholesterol 139 LDL Cholesterol Direct LDL Cholesterol, Calc 72 HDL Cholesterol 36 D Microalb/Creat Ratio TNP 01/09/22 01/09/22 07:55 07:55 Creatinine Estimated GFR Hgb A1c (Clinic) Hemoglobin A1c % 8.1 Triglycerides Cholesterol LDL Cholesterol Direct 84 LDL Cholesterol, Calc HDL Cholesterol Microalb/Creat Ratio PFSH Medical History Internal derangement of right shoulder Dyslipidemia Vitamin D deficiency B12 deficiency shelter (current) use of insulin Diabetes type 2, uncontrolled Surgical History Hx of cataract surgery Hx of appendectomy Family History Mother Diabetes Social History Housing: House Are you a primary critical care transport nurse to a significant other at home: No Do you presently have visiting nurse or other home services: No Alcohol intake: never Patient Tobacco Use Status: Former Tobacco user e-Cigarette/Vaping Use: Never Used Second Hand Smoke Exposure: No service: No Current occupational status: employed 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 Absence of acromegalic features. Neck exam reveals nl size thyroid about 15 gms. No thyroid nodules palpable. No carotid bruits present. Lungs CTA. Heart S1 S2, Reg R/R. No M/R/ G. Skin exam reveals absence of vitiligo or acanthosis nigricans. Abdominal exam reveals Soft NT/ND with NA BS. No organomegaly present. Neck Other: . Extrem Other: Visual exam of foot performed. No ulcerations or open lesions. No onchomycosis, no callouses.Pulses 2 + distally Sensation intact to monofilament exam. Vibratory sensation sensed is intact with 128 Hz tuning fork Results AMB Hemoglobin A1c AMB Hemoglobin A1c 8.7 % Last Edit by ELOISA Alberto on 02/05/25 09:24 Results Reviewed Results Reviewed: Laboratory Last Values Glucose (Clinic) 151 mg/dL (60-115) H 02/05/25 09:13 Hgb A1c (Clinic) 8.7 % (4.0-6.0) H 02/05/25 09:18 Assessment & Plan Assessment & Plan (1) Diabetes type 2, uncontrolled: Code(s): E11.65 - Type 2 diabetes mellitus with hyperglycemia Category: Medical Qualifiers: Glycemic state: with hyperglycemia Qualified Code(s): E11.65 - Type 2 diabetes mellitus with hyperglycemia Plan: This 59-year-old male with history of type 2 diabetes being treated with metformin, , Jardiance and basal-bolus insulin with less than optimal glycemic control with microvascular complications namely neuropathy. He could not tolerate it G LP 1 The plan is to increase the fFiasp to 20 units before dinner with Abby Guan NP in 1 months Orders: Orders AMB Hemoglobin A1c Today E11.65 - Type 2 diabetes mellitus with hyperglycemia Coding Level of Care Code Est Pt Level 4 (08343) Complex EM visit Add On G2211 Diagnoses Uncontrolled type 2 diabetes mellitus with hyperglycemia E11.65 Glycemic state: with hyperglycemia
[2025-02-05 09:05] VITALS: BP 100/62; PULSE 85; O2SAT 97; BMI 23.6
[2025-02-05 09:21] LABS: Glucose, Whole Blood 151 mg/dL (60-115)
== END 2025-02-05 09:25 | disposition home or self-care (01) ==
LOC: HO.ENCR 08:54
PROVIDERS: PCP Internal Medicine; Visit Provider Internal Medicine Endocrinology, Diabetes & Metabolism
DX: E11.65 Type 2 diabetes mellitus with hyperglycemia (principal)
CPT/HCPCS: 99214; G2211

== ENCOUNTER → 2025-02-05 08:53 | Outpatient (BNVA) | payer OTHER, SELFPAY | PROVIDERS: PCP Internal Medicine; Visit Provider Internal Medicine Endocrinology, Diabetes & Metabolism | DX: E11.65 Type 2 diabetes mellitus with hyperglycemia (principal); E78.5 Hyperlipidemia, unspecified; Z79.4 Long term (current) use of insulin | CPT/HCPCS: 82947; 83036; 99212 ==

== ENCOUNTER 2025-03-05 07:46 | Outpatient (AMB) | payer OTHER, SELFPAY ==
--- NOTE | 2025-03-05 07:05 | A.OFFVIS_ITS ---
Vital Signs 03/05/25 07:52 Height 5 ft 5 in Weight 141 lb 1.533 oz BMI 23.5 BP 116/74 Blood Pressure Location Rt brachial Position Sitting Pulse 72 Pulse Source Pulse Oximeter Intake Visit Reasons: T2DM Intake Note: Patient presents today for a follow-up on Type 2 Diabetes Mellitus: Last Diabetic eye exam was on: 02/19/2025 Last Podiatry exam was on: Patient does not see a Director Life Insurance Most recent HbA1c: 8.7%, 02/05/2025 Random Glucose- 140 mg/dL, Today Child Welfare Assistant Required: No Accompanied by: Self / Same As Patient Allergies penicillin V Allergy (Unknown, Verified 03/05/25 07:56) Unknown Penicillins [PENICILLINS] Allergy (Unknown, Verified 03/05/25 07:56) UNKNOWN Sulfa (Sulfonamide Antibiotics) [SULFA (SULFONAMIDE ANTIBIOTICS)] Allergy (Unknown, Verified 03/05/25 07:56) UNKNOWN HPI Comments Details: Patient is a 60 year male with DM type 2 diagnosed in 2005 who presents for management of diabetes. He was last seen by Dr. Sherwood on 02/05/2025 with the an A1c of 8.7%. At that time his evening Fiasp was increased to prevent postpra ndial highs after dinner. Past medical history: DM 2 Hyperlipidemia iron deficiency anemia B12 deficiency Micro and macrovascular complications: none known. He could not tolerate GLP-1 Diabetes medications: Tresiba 25 units at bedtime metformin 1000 twice a day Jardiance 25 mg QD Fiasp 14 units with breakfast, 14 units lunch and 16 units with dinner. He forgets his lunch Fiasp 2-3 times per week He tried to increase Fiasp before dinner to 20 units but had hypoglycemia Dexcom average glucose: 197 14 day continuous glucose monitor report reviewed Glucose Managment indicator 8 % Days with CGM data 88 % TIme in ranges: 16 % very high (above 250) 43 % high ?(181-250) 41 % in range ?(70-180] 0 % low (69-55) 0 % ?very low (below 54) Interpretation baseline glucose is elevated with postprandial increases after breakfast and lunch Hypoglycemia: none Hyperglycemia: denies urinary frequency, +nocturia 1x, polydypsia Exercise: Treadmill 3 times a week, 15-30 minutes Commercial Litigation 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 On 11/06/2024 No nephropathy 11/06/2024 eGFR>60 05/05/2024 microalbumin 7.0 Has HLD on statin LDL 79 Ophthalmology evaluation: seen in January 2025 no retinopathy Other specialists: none Walks on treadmill stair climbing at work up and down 20 times PFSH Medical History Internal derangement of right shoulder Dyslipidemia Vitamin D deficiency B12 deficiency detention (current) use of insulin Diabetes type 2, uncontrolled Surgical History Hx of cataract surgery Hx of appendectomy Family History Mother Diabetes Social History Housing: House Are you a primary certified caregiver to a significant other at home: No Do you presently have visiting nurse or other home services: No Alcohol intake: never Patient Tobacco Use Status: Former Tobacco user e-Cigarette/Vaping Use: Never Used Second Hand Smoke Exposure: No service: No Current occupational status: employed 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 Absence of acromegalic features. Neck exam reveals nl size thyroid about 15 gms. No thyroid nodules palpable. Heart S1 S2, Reg R/R. No M/R G. Skin exam reveals absence of vitiligo or acanthosis ni gricans. Foot exam deferred done several weeks ago. Assessment & Plan Assessment & Plan (1) Diabetes type 2, uncontrolled: Code(s): E11.65 - Type 2 diabetes mellitus with hyperglycemia Category: Medical Qualifiers: Glycemic state: with hyperglycemia Qualified Code(s): E11.65 - Type 2 diabetes mellitus with hyperglycemia Plan: 60-year-old type 2 diabetic with recent A1c of 8.7% down from 9.2%. Freestyle Gregg shows glucose average of 197 with postprandial elevation. New dosing: Tresiba 27units Fiasp breakfast 14 units lunch 14 units dinner 16 units metformin 1000 mg bid Jardiance 25 mg He will focus on getting his lunch Fiasp in on a regular basis and add a small amount of walking in the evening/ The patient had an opportunity to ask questions regarding treatment plan. The patient expressed understanding and agreement with the above treatment plan. The patient is aware they should contact our office by phone for worsening glucose readings or for any low blood sugars which may warrant a change in diabetes medication. Compliance is encouraged with medications and any followup testing/consults which may have been ordered. Medications: Changed From insulin degludec (Tresiba FlexTouch U-200 insulin) 22 units (0.11 mL) subcut BEDTIME 90 days 12 mL 3RF To Tresiba FlexTouch U-200 (insulin degludec) 22 units (0.11 mL) subcut BEDTIME 90 days 15 mL 3RF NS Refilled insulin aspart (niacinamide) 100 unit/mL (3 mL) (Fiasp FlexTouch U-100 Insulin) 14-16 units tid before meals 90 days 45 mL 4RF Patient Instructions: The patient was counseled to achieve a target A1C of 7% (154 avg). Fasting blood sugars should be 90-130 in the morning and less than 180 two hours after meals. Reviewed the relationship between poor diabetic control and the development of complications. Coding Level of Care Code Est Pt Level 4 (99916) Complex EM visit Add On G2211 Diagnoses Uncontrolled type 2 diabetes mellitus with hyperglycemia E11.65 Glycemic state: with hyperglycemia Time Spent (min) 30 Comment Time spent reviewing labs/provider notes, face to face, chart doc
[2025-03-05 07:52] VITALS: BP 116/74; PULSE 72; BMI 23.5
[2025-03-05 08:02] LABS: Glucose, Whole Blood 140 mg/dL (60-115)
== END 2025-03-05 08:20 | disposition home or self-care (01) ==
LOC: HO.ENCR 07:47
PROVIDERS: PCP Internal Medicine; Visit Provider Nurse Practitioner Adult Health
DX: E11.65 Type 2 diabetes mellitus with hyperglycemia (principal)
CPT/HCPCS: 99214; G2211

== ENCOUNTER → 2025-03-05 07:46 | Outpatient (BNVA) | payer OTHER, SELFPAY | PROVIDERS: PCP Internal Medicine; Visit Provider Nurse Practitioner Adult Health | DX: E11.65 Type 2 diabetes mellitus with hyperglycemia (principal); Z79.84 Long term (current) use of oral hypoglycemic drugs; Z79.4 Long term (current) use of insulin; Z79.899 Other long term (current) drug therapy | CPT/HCPCS: 82947; 99212 ==

== ENCOUNTER 2025-06-11 07:55 | Outpatient (AMB) | payer OTHER, SELFPAY ==
--- NOTE | 2025-06-11 07:57 | A.OFFVIS_ITS ---
Vital Signs 06/11/25 08:02 Height 5 ft 5 in Weight 142 lb 10.225 oz BMI 23.7 BP 94/64 Blood Pressure Location Rt brachial Position Sitting Pulse 78 Pulse Source Pulse Oximeter Pulse Oximetry (%) 97 Oxygen Delivery Method Room Air Intake Visit Reasons: T2DM Intake Note: Patient present today to follow up on Type 2 Diabetes Mellitus. Patient receives Freestyle Gregg 3 Plus supplies through: [facility] Last Diabetic Eye exam: 02/19/2025 Last Podiatry Visit: Does not see a Interventional Radiology Tech Random Glucose: 114 mg/dl HgA1C: 8.7% 06/11/2025 Tire Layer Required: No Accompanied by: Self / Same As Patient Allergies penicillin V Allergy (Unknown, Verified 06/11/25 08:02) Unknown Penicillins (PENICILLINS) Allergy (Unknown, Verified 06/11/25 08:02) UNKNOWN Sulfa (Sulfonamide Antibiotics) (SULFA (SULFONAMIDE ANTIBIOTICS)) Allergy (Unknown, Verified 06/11/25 08:02) UNKNOWN Medication List - Last Reconciled 06/11/25 by John Sherwood MD acetone (urine) test (Ketone Urine Test strips) As directed blood sugar diagnostic (FreeStyle Precision Clarence Strips) As directed four times a day blood-glucose sensor (FreeStyle Gregg 3 Plus Sensor device) As directed prn blood-glucose,round corner cutter operator,cont (FreeStyle Gregg 3 [place]) As directed empagliflozin (Jardiance) 25 mg PO DAILY famotidine 20 mg PO BEDTIME flash glucose scanning reader (FreeStyle Gregg 2 Wynot) check three times a day flash glucose sensor (FreeStyle Gregg 2 Sensor kit) USE DIRECTED TO CHECK BLOOD SUGAR. CHANGE EVERY 14 DAYS. glucagon (Glucagon Emergency Kit) 1 mg subcut Q20M PRN insulin aspart (niacinamide) 100 unit/mL (3 mL) (Fiasp FlexTouch U-100 Insulin) 14-16 units tid before meals 90 days metformin 1,000 mg PO BID pantoprazole 20 mg PO DAILY 90 days pen needle, diabetic 5 TIMES A DAY simvastatin 20 mg PO BEDTIME Tresiba FlexTouch U-200 (insulin degludec) 22 units (0.11 mL) subcut BEDTIME 90 days NS HPI Comments Details: Patient is a 60 year male with DM type 2 diagnosed in 2005 who presents for management of diabetes. He was last seen by Abby Schwartz NP on 03/05/2025 . Past medical history: DM 2 Hyperlipidemia iron deficiency anemia B12 deficiency Micro and macrovascular complications: none known. He could not tolerate GLP-1 Diabetes medications: Tresiba 25 units at bedtime metformin 1000 twice a day Jardiance 25 mg QD Fiasp 14 units with breakfast, 14 units lunch and 16 units with dinner. He forgets his lunch Fiasp 2-3 times per week He tried to increase Fiasp before dinner to 20 units but had hypoglycemia Dexcom average glucose: 179 day continuous glucose monitor report reviewed Glucose Managment indicator 7.6 % Days with CGM data 89 % TIme in ranges: 15 % very high (above 250) 26 % high ?(181-250) 59 % in range ?(70-180] 0 % low (69-55) 0 % ?very low (below 54) Interpretation baseline glucose is elevated with postprandial increases after breakfast and dinner Hypoglycemia: rare Hyperglycemia: denies urinary frequency, +nocturia 1x, polydypsia Exercise: Treadmill 3 times a week, 15-30 minutes 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 On 11/06/2024 No nephropathy 11/06/2024 eGFR>60 05/05/2024 microalbumin 7.0 Has HLD on statin LDL 79 Ophthalmology evaluation: seen in January 2025 no retinopathy Other specialists: none Walks on treadmill stair climbing at work up and down 20 times PFSH Medical History Internal derangement of right shoulder Dyslipidemia Vitamin D deficiency B12 deficiency half-way (current) use of insulin Diabetes type 2, uncontrolled Surgical History Hx of cataract surgery Hx of appendectomy Family History Mother Diabetes Social History Housing: House Are you a primary pet care assistant to a significant other at home: No Do you presently have visiting nurse or other home services: No Alcohol intake: never Patient Tobacco Use Status: Former Tobacco user e-Cigarette/Vaping Use: Never Used Second Hand Smoke Exposure: No service: No Current occupational status: employed 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 Absence of acromegalic features. Neck exam reveals nl size thyroid about 15 gms. No thyroid nodules palpable. No carotid bruits present. Lungs CTA. Heart S1 S2, Reg R/R. No M/R/ G. Skin exam reveals absence of vitiligo or acanthosis nigricans. Abdominal exam reveals Soft NT/ND with NA BS. No organomegaly present. Neck Other: . Extrem Other: Visual exam of foot performed. No ulcerations or open lesions. No onchomycosis, no callouses.Pulses 2 + distally Sensation intact to monofilament exam. Vibratory sensation sensed is intact with 128 Hz tuning fork Results AMB Hemoglobin A1c AMB Hemoglobin A1c 8.7 % Last Edit by ELOISA Alberto on 06/11/25 08:26 Results Reviewed Results Reviewed: Laboratory Last Values Glucose (Clinic) 114 mg/dL (60-115) 06/11/25 08:07 Hgb A1c (Clinic) 8.7 % (4.0-6.0) H 06/11/25 08:11 Assessment & Plan Assessment & Plan (1) Diabetes type 2, uncontrolled: Code(s): E11.65 - Type 2 diabetes mellitus with hyperglycemia Category: Medical Qualifiers: Glycemic state: with hyperglycemia Qualified Code(s): E11.65 - Type 2 diabetes mellitus with hyperglycemia Plan: This 59-year-old male with history of type 2 diabetes being treated with metformin, , Jardiance and basal-bolus insulin with improved but less than optimal glycemic control with microvascular complications namely neuropathy. He could not tolerate it G LP 1 The plan is to increase the fFiasp to 18 units before breakfast and lunch and 20units before dinner with primary care diabetes team in 3 months Orders: Orders Microalbumin, Random (w Creat) Today E11.65 - Type 2 diabetes mellitus with hyperglycemia AMB Hemoglobin A1c Today E11.65 - Type 2 diabetes mellitus with hyperglycemia Coding Level of Care Code Est Pt Level 4 (01606) Complex EM visit Add On G2211 Diagnoses Uncontrolled type 2 diabetes mellitus with hyperglycemia E11.65 Glycemic state: with hyperglycemia
--- OUTSIDE RECORDS SUMMARY | 2025-06-11 07:59 | XMS_ITS | Patient Health Record ---
Author Organization [facility] Address [address] [place] [address] Care Team Providers Care Oil Pumper Name Role Phone Adrián Coffey M.D. Primary Care Provider Katherine florenceparishmario Willis Jr Kyler Unavailable [phone] Allergies Allergen (clinical drug ingredient) Drug/Non Drug Allergy documented on EMR Reaction Allergy Type Onset Date Status Sulfa Unknown Drug Allergy Active Penicillin Unknown Drug Allergy Active Reason For Referral No Information Medications Medication SIG (Take, Route, Frequency, Duration) Notes Start Date End Date Status Clarithromycin 500 MG 1 tablet Orally ev ling 12 hrs for 14 days 10/03/2013 Active Ferrous Sulfate 325mg Active metroNIDAZOLE 500 MG 1 tablet Orally Twi ce a day for 14 days 10/03/2013 Active Glimepiride 4mg Acti ve Colyte with Flavor Packs 240 GM As directed Orally Over the specified time. for 1 day(s) 09/05/2013 10/29/2024 Active metFORMIN HCl 1000mg Active Omeprazole 20 MG 1 capsule Orally Twi ce a day for 14 days 10/03/2013 Active Simvastatin 20mg Act noel Januvia 100mg Active Problems Problem Type SNOMED Code ICD Code Onset Dates Problem Status W/U Status Risk Notes Problem Iron deficiency anemia (280.9) Active confirmed Plan Of Treatment Future Test Test Name Order Date UPPER GI ENDOSCOPY 09/05/2013 COLONOSCOPY 09/05/2013 Insurance Providers Payer Name Payer Address Payer Phone Subscriber Number Group Number Insured Name Patient Relationship to Insured Coverage Start Date Coverage End Date [facility] [facility] [address] [place] [phone] [id number] KARIN RODRIGUEZ Self - patient is the insured Medical (General) History Medical History History ICD Code iron deficiency anemia type II diabetes elevated cholesterol Surgical History Surgery Date(Month/Year) appendectomy
[2025-06-11 08:02] VITALS: BP 94/64; PULSE 78; O2SAT 97; BMI 23.7
[2025-06-11 08:11] LABS: Glucose, Whole Blood 114 mg/dL (60-115)
== END 2025-06-11 08:25 | disposition home or self-care (01) ==
LOC: HO.ENCR 07:56
PROVIDERS: PCP Internal Medicine; Visit Provider Internal Medicine Endocrinology, Diabetes & Metabolism
DX: E11.65 Type 2 diabetes mellitus with hyperglycemia (principal)
CPT/HCPCS: 99214

== ENCOUNTER → 2025-06-11 07:55 | Outpatient (BNVA) | payer OTHER, SELFPAY | PROVIDERS: PCP Internal Medicine; Visit Provider Internal Medicine Endocrinology, Diabetes & Metabolism | DX: E11.65 Type 2 diabetes mellitus with hyperglycemia (principal); E78.5 Hyperlipidemia, unspecified; E53.8 Deficiency of other specified B group vitamins; E55.9 Vitamin D deficiency, unspecified; D50.9 Iron deficiency anemia, unspecified; Z79.4 Long term (current) use of insulin | CPT/HCPCS: 82947; 83036; 99212 ==

== ENCOUNTER 2025-06-26 15:25 | Outpatient (AMB) | payer OTHER, SELFPAY ==
--- NOTE | 2025-06-26 15:26 | A.OFFPC_ITS ---
Vital Signs 06/26/25 15:27 Height 5 ft 5 in Weight 142 lb BMI 23.6 BP 118/72 Blood Pressure Location Rt brachial Position Sitting Respiration 18 Pulse 96 Pulse Source Pulse Oximeter Temp 97.7 F Temp Source Oral Pulse Oximetry (%) 97 Oxygen Delivery Method Room Air Intake Visit Reasons: Med Review Allergies penicillin V Allergy (Unknown, Verified 06/26/25 15:27) Unknown Penicillins (PENICILLINS) Allergy (Unknown, Verified 06/26/25 15:27) UNKNOWN Sulfa (Sulfonamide Antibiotics) (SULFA (SULFONAMIDE ANTIBIOTICS)) Allergy (Unknown, Verified 06/26/25 15:27) UNKNOWN Medication List - Last Reconciled 06/26/25 by Marisela Wylie MD acetone (urine) test (Ketone Urine Test strips) As directed blood sugar diagnostic (FreeStyle Precision [place] Strips) As directed four times a day blood-glucose sensor (FreeStyle Gregg 3 Plus Sensor device) As directed prn blood-glucose,team coordinator,cont (FreeStyle Gregg 3 [place]) As directed empagliflozin (Jardiance) 25 mg PO DAILY famotidine 20 mg PO BEDTIME flash glucose scanning reader (FreeStyle Gregg 2 [place]) check three times a day flash glucose sensor (FreeStyle Gregg 2 Sensor kit) USE DIRECTED TO CHECK BLOOD SUGAR. CHANGE EVERY 14 DAYS. glucagon (Glucagon Emergency Kit) 1 mg subcut Q20M PRN insulin aspart (niacinamide) 100 unit/mL (3 mL) (Fiasp FlexTouch U-100 Insulin) 14-16 units tid before meals 90 days metformin 1,000 mg PO BID pantoprazole 20 mg PO DAILY 90 days pen needle, diabetic 5 TIMES A DAY simvastatin 20 mg PO BEDTIME Tresiba FlexTouch U-200 (insulin degludec) 22 units (0.11 mL) subcut BEDTIME 90 days NS Tobacco use date assessed: 06/26/25 Dental Screening Dental Screen Date: 12/26/24 HPI Med Review HPI Details Physical exam appointment The patient is a 60-year-old male presenting with management of diabetes mellitus, hyperlipidemia, and gastroesophageal reflux disease. Type 2 Diabetes Mellitus: - Reports taking insulin 14 to 16 units three times daily with meals. - Has an A1c of 8.7, noted as high, and mentioned that it had previously exceeded 10. Recent levels should be below 7. - Cited job issues affecting nighttime i nsulin administration. - No acute complications or emergencies were reported. Hyperlipidemia: - Currently taking simvastatin 20 mg. - Advised routine biannual blood tests t o monitor potential liver issues from the medication. Gastroesophageal Reflux Disease (GERD): - Using pantoprazole for management. - No reports of recent exacerbations or complications. Medical History: - Type 2 Diabetes Mellitus - Hyperlipidemia - Gastroesophageal Reflux Disease (GERD) - Vitamin D Deficiency Social History: - Employment: Works a job with nighttime hours that may influence diabetes management. - Location: Travels frequently to [facility]. - Exercise and Mobility: Able to walk wi no issues. Health Maintenance - A1c monitoring, with recent value repo rted to be 8.7. - Scheduled blood tests for liver monito ring due to simvastatin. - Possible conversation about cholestero l lab screenings following earlier discussion on levels. [place] of Care: Endocrinology Dr. Sherwood Medications - Jardiance for diabetes - Insulin 14 to 16 units as needed adjus ayanna for mealtime - Trishiba 22 units at night for diabete s - Simvastatin 20 mg for hyperlipidemia - Pantoprazole for gastroesophageal refl ux disease Patient Instructions - Continue diabetes medications as presc ribed. - Schedule regular blood tests every 6 m onths to monitor liver function. - Monitor and aim to lower A1c levels, a im for level below 7. - Follow instructions for medication denzel eduling, especially regarding shifting work schedules. - avoid spicy food, pantoprazole script sent Review of Systems. - General: No fever no chills - Neurological: No headaches no dizzin ess - Ear nose throat: No sore throat no hearing difficulty no ear pain - Cardiovascular: No syncope, no chest pain, no palpitations - Gastrointestinal: No nausea vomiting or diarrhea - Endocrine: No polyuria polydipsia no heat intolerance - Genitourinary: No dysuria - Skin: No new complaints Physical Exam General: Cooperative, healthy appearing, comfortable, no acute distress Orientation: Patient oriented x3 Limitations: None Head: Normal to inspection Ears: Within normal limit visually Nose: Normal external nose present Face and sinus: Normal facial exam Eyes: Appearance normal, extraocular movement intact pupils reactive Neck: Normal visual inspection and supple Respiratory: Normal respiratory effort and able to speak in complete sentences. Clear to auscultation, no stridor Cardiovascular: S1 and S2 RRR GI: Normal to inspection. Soft to palpation and nontender Skin: Turgor normal, no acute findings Neuro: Patient oriented x3, motor sensory intact, balance intact, tandem pass Extremities: Normal to inspection, no swelling in feet, no joint pain in arms and legs PFSH Medical History Internal derangement of right shoulder Dyslipidemia Vitamin D deficiency B12 deficiency 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 Diabetes type 2, uncontrolled Surgical History Hx of cataract surgery Hx of appendectomy Family History Mother Diabetes Social History Housing: House Are you a primary child care giver to a significant other at home: No Do you presently have visiting nurse or other home services: No Alcohol intake: never Patient Tobacco Use Status: Former Tobacco user e-Cigarette/Vaping Use: Never Used Second Hand Smoke Exposure: No service: No Current occupational status: employed 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 John Leone, Liliana Sauer, Bebeto Lehman and colleagues, with an educational nilesh from e994. Physical exam (Primary Care) Vital Signs: Last Vital Signs Temp 97.7 F 06/26/25 15:27 Pulse 96 06/26/25 15:27 Resp 18 06/26/25 15:27 BP 118/72 06/26/25 15:27 Pulse Ox 97 06/26/25 15:27 Oxygen Delivery Method Room Air 06/26/25 15:27 BMI result Body Mass Index 23.6 Tobacco/Smoking Status: Tobacco use Status Tobacco use date assessed 06/26/25 06/26/25 15:32 Patient Tobacco Use Status Former Tobacco user 06/26/25 15:26 e-Cigarette/Vaping Use Never Used 06/26/25 15:26 Thrive Assessment: Date of Thrive Assessment Date Thrive assessed 12/26/24 06/26/25 15:26 Coding Level of Care Code Est Pt Level 3 (37776) Est Pt Prev Care 40-64y(27364) Diagnoses Encounter for general adult medical examination with abnormal findings Z00.01 Gastroesophageal reflux disease without esophagitis K21.9 Esophagitis presence: without esophagitis Type 2 diabetes mellitus with other specified complication, with long-term current use of insulin E11.69; Z79.4 Diabetes mellitus type: type 2 Diabetes mellitus retirement insulin use: with ocean transportation intermediary use Diabetes mellitus complication status: with other specified complication prison (current) use of insulin Z79.4 Lipid disorder E78.9 Assessment & Plan Assessment & Plan (1) Encounter for general adult medical examination with abnormal findings: Code(s): Z00.01 - Encounter for general adult medical examination with abnormal findings Category: Medical (2) GERD (gastroesophageal reflux disease): Code(s): K21.9 - Gastro-esophageal reflux disease without esophagitis Category: Medical Qualifiers: Esophagitis presence: without esophagitis Qualified Code(s): K21.9 - Gastro-esophageal reflux disease without esophagitis (3) Diabetes mellitus: Code(s): E11.9 - Type 2 diabetes mellitus without complications Category: Medical Qualifiers: Diabetes mellitus type: type 2 Diabetes mellitus ocean transportation intermediary insulin use: with retirement use Diabetes mellitus complication status: with other specified complication Qualified Code(s): E11.69 - Type 2 diabetes mellitus with other specified complication; Z79.4 - prison (current) use of insulin (4) prison (current) use of insulin: Code(s): Z79.4 - 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 Category: Medical (5) Lipid disorder: Code(s): E78.9 - Disorder of lipoprotein metabolism, unspecified Category: Medical Plan Physical exam appointment The patient is a 60-year-old male presenting with management of diabetes mellitus, hyperlipidemia, and gastroesophageal reflux disease. Type 2 Diabetes Mellitus: - Reports taking insulin 14 to 16 units three times daily with meals. - Has an A1c of 8.7, noted as high, and mentioned that it had previously exceeded 10. Recent levels should be below 7. - Cited job issues affecting nighttime insulin administration. - No acute complications or emergencies were reported. Hyperlipidemia: - Currently taking simvastatin 20 mg. - Advised routine biannual blood tests to monitor potential liver issues from the medication. Gastroesophageal Reflux Disease (GERD): - Using pantoprazole for management. - No reports of recent exacerbations or complications. Medical History: - Type 2 Diabetes Mellitus - Hyperlipidemia - Gastroesophageal Reflux Disease (GERD) - Vitamin D Deficiency Social History: - Employment: Works a job with nighttime hours that may influence diabetes management. - Location: Travels frequently to [place]. - Exercise and Mobility: Able to walk with no issues. Health Maintenance - A1c monitoring, with recent value reported to be 8.7. - Scheduled blood tests for liver monitoring due to simvastatin. - Possible conversation about cholesterol lab screenings following earlier discussion on levels. [place] of Care: Endocrinology Dr. Sherwood Medications - Jardiance for diabetes - Insulin 14 to 16 units as needed adjusted for mealtime - Trishiba 22 units at night for diabetes - Simvastatin 20 mg for hyperlipidemia - Pantoprazole for gastroesophageal reflux disease Patient Instructions - Continue diabetes medications as prescribed. - Schedule regular blood tests every 6 months to monitor liver function. - Monitor and aim to lower A1c levels, aim for level below 7. - Follow instructions for medication scheduling, especially regarding shifting work schedules. - avoid spicy food, pantoprazole script sent Orders: Orders Lipid Panel Today E11.69 - Type 2 diabetes mellitus with other specified complication, E78.9 - Disorder of lipoprotein metabolism, unspecified, K21.9 - Gastro-esophageal reflux disease without esophagitis, Z00.01 - Encounter for general adult medical examination with abnormal findings, Z79.4 - prison (current) use of insulin Vitamin D 25-OH (D2 and D3) Today E11.69 - Type 2 diabetes mellitus with other specified complication, E78.9 - Disorder of lipoprotein metabolism, unspecified, K21.9 - Gastro-esophageal reflux disease without esophagitis, Z00.01 - Encounter for general adult medical examination with abnormal findings, Z79.4 - 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 Complete Blood Count Auto Diff Today E11.69 - Type 2 diabetes mellitus with other specified complication, E78.9 - Disorder of lipoprotein metabolism, unspecified, K21.9 - Gastro-esophageal reflux disease without esophagitis, Z00.01 - Encounter for general adult medical examination with abnormal findings, Z79.4 - prison (current) use of insulin Comprehensive [place]. Panel Fast Today E11.69 - Type 2 diabetes mellitus with other specified complication, E78.9 - Disorder of lipoprotein metabolism, unspecified, K21.9 - Gastro-esophageal reflux disease without esophagitis, Z00.01 - Encounter for general adult medical examination with abnormal findings, Z79.4 - prison (current) use of insulin Vitamin B12 Today E11.69 - Type 2 diabetes mellitus with other specified complication, E78.9 - Disorder of lipoprotein metabolism, unspecified, K21.9 - Gastro-esophageal reflux disease without esophagitis, Z00.01 - Encounter for general adult medical examination with abnormal findings, Z79.4 - prison (current) use of insulin TSH reflex Free T4 Today E11.69 - Type 2 diabetes mellitus with other specified complication, E78.9 - Disorder of lipoprotein metabolism, unspecified, K21.9 - Gastro-esophageal reflux disease without esophagitis, Z00.01 - Encounter for general adult medical examination with abnormal findings, Z79.4 - prison (current) use of insulin Medications: Refilled pantoprazole 20 mg PO DAILY 90 tabs 3RF 90 days K21.9 - Gastro-esophageal reflux disease without esophagitis, R10.13 - Epigastric pain
[2025-06-26 15:27] VITALS: BP 118/72; PULSE 96; RESP 18; TEMP 36.5; O2SAT 97; BMI 23.6
--- OUTSIDE RECORDS SUMMARY | 2025-06-26 15:27 | XMS_ITS | Patient Health Record ---
Author Organization [facility] Address [address] [place] [address] Care Team Providers Care Adobe Block Maker Name Role Phone Adrián Coffey M.D. Primary Care Provider Katherine florenceparishmario Willis Jr Kyler Unavailable Allergies Allergen (clinical drug ingredient) Drug/Non Drug [...] Insured Coverage Start Date Coverage End Date [facility] [address] [place] [address] [phone] [id number] KARIN RODRIGUEZ Self - patient is the insured Medical (General) History Medical History History ICD Code iron deficiency anemia type II diabetes elevated cholesterol Surgical History Surgery Date(Month/Year) appendectomy
== END 2025-06-26 15:49 | disposition home or self-care (01) ==
PROVIDERS: PCP Internal Medicine; Visit Provider Internal Medicine
DX: Z00.00 Encounter for general adult medical examination without abnormal findings (principal); K21.9 Gastro-esophageal reflux disease without esophagitis; E11.69 Type 2 diabetes mellitus with other specified complication; Z79.4 Long term (current) use of insulin; E78.9 Disorder of lipoprotein metabolism, unspecified

== ENCOUNTER → 2025-06-26 15:25 | Outpatient (BNVA) | payer OTHER, SELFPAY | PROVIDERS: PCP Internal Medicine; Visit Provider Internal Medicine | DX: Z00.01 Encounter for general adult medical examination with abnormal findings (principal); E11.69 Type 2 diabetes mellitus with other specified complication; E78.5 Hyperlipidemia, unspecified; K21.9 Gastro-esophageal reflux disease without esophagitis; R10.13 Epigastric pain; Z79.4 Long term (current) use of insulin | CPT/HCPCS: 99396 ==

== ENCOUNTER 2025-07-02 08:34 | Outpatient (REF) | payer OTHER, SELFPAY ==
--- OUTSIDE RECORDS SUMMARY | 2025-07-02 09:06 | XMS_ITS | Patient Health Record ---
Author Organization [facility] Address [address] [place] [address] Care Team Providers Care Hospital Housekeeper Name Role Phone Adrián Coffey M.D. Primary Care Provider Katherine florenceparishmario Willis Jr Kyler Unavailable [phone] Allergies Allergen (clinical drug ingredient) Drug/Non Drug [...] Status Risk Notes Problem Iron deficiency anemia (24422871) Iron deficiency anemia (280.9) Active confirmed Plan Of Treatment Future Test Test Name Order Date UPPER GI ENDOSCOPY 09/05/2013 COLONOSCOPY 09/05/2013 Insurance Providers Payer Name Payer Address Payer Phone Subscriber Number Group Number Insured Name Patient Relationship to Insured Coverage Start Date Coverage End Date [facility] [address] [place] [address] [phone] [id number] KARIN RODRIGUEZ Self - patient is the insured Medical (General) History Medical History History ICD Code iron deficiency anemia type II diabetes elevated cholesterol Surgical History Surgery Date(Month/Year) appendectomy
[2025-07-02 10:18] LABS: MANUAL DIFF FLAG NO
[2025-07-02 10:20] LABS: Hematocrit 38.1 % (42.0-52.0); Hemoglobin 11.7 g/dl (14.0-18.0); Imm Gran Abs Auto 0.01 X10*3/uL (0.00-0.03); Imm Gran Pct Auto 0.1 % (0.0-0.4); Lymphocytes Absolute Auto 3.6 X10*3/uL (1.2-4.9); Mean Corpuscular HGB Conc 30.7 g/dl (31.0-36.0); Mean Corpuscular Hemoglobin 21.9 pg (27.0-33.0); Mean Corpuscular Volume 71.3 fL (80.0-98.0); NRBC Abs Auto 0.000 X10*3/uL (0.0-0.012); NRBC Pct Auto 0.0 /100WBC (0.0-0.2); Platelet Count 233 X10*3/uL (160-400); Red Blood Count 5.34 X10*6/uL (4.60-5.80); White Blood Count 7.2 X10*3/uL (4.8-10.8)
[2025-07-02 10:43] LABS: Alanine Aminotransferase 20 U/L (0-40); Albumin Level 4.6 g/dL (3.5-5.0); Alkaline Phosphatase 69 U/L (39-117); Anion Gap 12 (12-20); Aspartate Amino Transferase 25 U/L (5-37); Blood Urea Nitrogen 13 mg/dL (9-16); Calcium 9.0 mg/dL (8.4-10.2); Carbon Dioxide 26 mmol/L (22-29); Chloride 106 mmol/L (96-108); Cholesterol 127 mg/dL (<200); Estimated Glomerular Filt Rate > 60; HDL Cholesterol 34 mg/dL (>40); Potassium 4.2 mmol/L (3.3-5.1); Sodium 140 mmol/L (135-145); Total Protein 7.6 g/dL (6.5-8.0); Triglycerides 107 mg/dL (<150)
[2025-07-02 11:00] LABS: Vitamin B12 255 pg/mL (200-900)
[2025-07-06 08:54] LABS: Vitamin D 25-OH, D2 <4 ng/mL; Vitamin D 25-OH, D3 30 ng/mL; Vitamin D 25-OH, Total 30 ng/mL (30-100)
== END 2025-07-02 08:35 | disposition home or self-care (01) ==
LOC: HO.HMGCLDS 08:34
PROVIDERS: PCP Internal Medicine; Visit Provider Internal Medicine
DX: Z00.01 Encounter for general adult medical examination with abnormal findings (principal); E11.69 Type 2 diabetes mellitus with other specified complication; K21.9 Gastro-esophageal reflux disease without esophagitis; E78.9 Disorder of lipoprotein metabolism, unspecified; Z79.4 Long term (current) use of insulin
CPT/HCPCS: 36415; 80053; 80061; 82306; 82607; 84443; 85025

== ENCOUNTER 2025-09-10 08:25 | Outpatient (AMB) | payer OTHER, SELFPAY ==
--- NOTE | 2025-09-10 08:31 | MHC.OFFVIS ---
Vital Signs 09/10/25 08:33 Height 5 ft 5 in Weight 141 lb 1.533 oz BMI 23.5 BP 112/62 Blood Pressure Location Lt brachial Position Sitting Pulse 72 Pulse Source Pulse Oximeter Pulse Oximetry (%) 97 Oxygen Delivery Method Room Air Intake Visit Reasons: f/u Type 2 DM Intake Note: Patient present today to follow up on Type 2 Diabetes Mellitus.? Patient receives Freestyle Gregg 3 Plus supplies through: [facility] Last Diabetic Eye exam: 02/19/2025 Last Podiatry Visit: Does not see a Color Repairer Random Glucose:181 mg/dl HgA1C: Milk Pasteurizer Required: No Allergies penicillin V Allergy (Unknown, Verified 09/10/25 08:32) Unknown Penicillins (PENICILLINS) Allergy (Unknown, Verified 09/10/25 08:32) UNKNOWN Sulfa (Sulfonamide Antibiotics) (SULFA (SULFONAMIDE ANTIBIOTICS)) Allergy (Unknown, Verified 09/10/25 08:32) UNKNOWN Medication List - Last Reconciled 09/10/25 by John Sherwood MD acetone (urine) test (Ketone Urine Test strips) As directed blood sugar diagnostic (FreeStyle Precision [place] Strips) As directed four times a day blood-glucose sensor (FreeStyle Gregg 3 Plus Sensor device) As directed prn blood-glucose,concrete puddler,cont (FreeStyle Gregg 3 [place]) As directed empagliflozin (Jardiance) 25 mg PO DAILY famotidine 20 mg PO BEDTIME flash glucose scanning reader (FreeStyle Gregg 2 [place]) check three times a day flash glucose sensor (FreeStyle Gregg 2 Sensor kit) USE DIRECTED TO CHECK BLOOD SUGAR. CHANGE EVERY 14 DAYS. glucagon (Glucagon Emergency Kit) 1 mg subcut Q20M PRN insulin aspart (niacinamide) 100 unit/mL (3 mL) (Fiasp FlexTouch U-100 Insulin) 14-16 units tid before meals 90 days metformin 1,000 mg PO BID pantoprazole 20 mg PO DAILY 90 days pen needle, diabetic 5 TIMES A DAY simvastatin 20 mg PO BEDTIME Tresiba FlexTouch U-200 (insulin degludec) 22 units (0.11 mL) subcut BEDTIME 90 days NS HPI Comments Details: Patient is a 60 year male with DM type 2 diagnosed in 2005 who presents for management of diabetes. Past medical history: DM 2 Hyperlipidemia iron deficiency anemia B12 deficiency Micro and macrovascular complications: none known. He could not tolerate GLP-1 Diabetes medications: Tresiba 20 units at bedtime . Was supposed to take 26 units but was rushing in the insulin because of decreasing supply metformin 1000 twice a day Jardiance 25 mg QD Fiasp 14 units with breakfast, 14 units lunch and 16 units with dinner. Not taking the Fiasp with lunch He forgets his lunch Fiasp 2-3 times per week He tried to increase Fiasp before dinner to 20 units but had hypoglycemia Dexcom average glucose: 193 day continuous glucose monitor report reviewed Glucose Managment indicator 7.9 % Days with CGM data 89 % TIme in ranges: 15 % very high (above 250) 41 % high ?(181-250) 44 % in range ?(70-180] 0 % low (69-55) 0 % ?very low (below 54) Interpretation baseline glucose is elevated with postprandial increases after launch Hypoglycemia: rare Hyperglycemia: denies urinary frequency, +nocturia 1x, polydypsia Exercise: Treadmill 3 times a week, 15-30 minutes Topstitcher Lockstitch - CDE education: yes, awhile ago Color Repairer: none Dental exam: goes every 3 months. On 11/06/2024 No nephropathy 11/06/2024 eGFR>60 05/05/2024 microalbumin 7.0 Has HLD on statin LDL 79 Ophthalmology evaluation: seen in January 2025 no retinopathy Other specialists: none Walks on treadmill stair climbing at work up and down 20 times PFSH Medical History Internal derangement of right shoulder Dyslipidemia Vitamin D deficiency B12 deficiency custodial (current) use of insulin Diabetes type 2, uncontrolled Surgical History Hx of cataract surgery Hx of appendectomy Family History Mother Diabetes Social History Housing: House Are you a primary farm or ranch animal caretaker to a significant other at home: No Do you presently have visiting nurse or other home services: No Alcohol intake: never Patient Tobacco Use Status: Former Tobacco user e-Cigarette/Vaping Use: Never Used Second Hand Smoke Exposure: No service: No Current occupational status: employed 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 Absence of acromegalic features. Neck exam reveals nl size thyroid about 15 gms. No thyroid nodules palpable. No carotid bruits present. Lungs CTA. Heart S1 S2, Reg R/R. No M/R/ G. Skin exam reveals absence of vitiligo or acanthosis nigricans. Abdominal exam reveals Soft NT/ND with NA BS. No organomegaly present. Neck Other: . Extrem Other: Visual exam of foot performed. No ulcerations or open lesions. No onchomycosis, no callouses.Pulses 2 + distally Sensation intact to monofilament exam. Vibratory sensation sensed is intact with 128 Hz tuning fork Results AMB Hemoglobin A1c AMB Hemoglobin A1c 8.7 % Last Edit by Bethany Licea CMA on 09/10/25 09:10 Results Reviewed Results Reviewed: Laboratory Last Values Glucose (Clinic) 181 mg/dL (60-115) H 09/10/25 08:37 Hgb A1c (Clinic) 8.7 % (4.0-6.0) H 09/10/25 08:42 Assessment & Plan Assessment & Plan (1) Diabetes type 2, uncontrolled: Code(s): E11.65 - Type 2 diabetes mellitus with hyperglycemia Category: Medical Qualifiers: Glycemic state: with hyperglycemia Qualified Code(s): E11.65 - Type 2 diabetes mellitus with hyperglycemia Plan: This 59-year-old male with history of type 2 diabetes being treated with metformin, , Jardiance and basal-bolus insulin with improved but less than optimal glycemic control with microvascular complications namely neuropathy. He could not tolerate it G LP 1 The plan is to increase the Tresiba 26 units and stressed compliance with Fiasp before lunch.. If it continues to be post-lunch hypoglycemia, Fiasp before lunch can be increased as well. Patient should follow up with primary care diabetes team in 3 months Orders: Orders AMB Hemoglobin A1c Today E11.65 - Type 2 diabetes mellitus with hyperglycemia Medications: Changed From Tresiba FlexTouch U-200 (insulin degludec) 22 units (0.11 mL) subcut BEDTIME 90 days 15 mL 3RF NS To Tresiba FlexTouch U-200 (insulin degludec) 26 units (0.13 mL) subcut BEDTIME 11.7 mL 3RF 90 days NS Coding Level of Care Code Est Pt Level 3 (38175) Diagnoses Uncontrolled type 2 diabetes mellitus with hyperglycemia E11.65 Glycemic state: with hyperglycemia
[2025-09-10 08:33] VITALS: BP 112/62; PULSE 72; O2SAT 97; BMI 23.5
[2025-09-10 08:44] LABS: Glucose, Whole Blood 181 mg/dL (60-115)
--- OUTSIDE RECORDS SUMMARY | 2025-09-10 08:46 | XMS_ITS | Patient Health Record ---
Author Organization [facility] Address [address] [place] [address] Care Team Providers Care Secondary Set Up Man Name Role Phone Adrián Coffey M.D. Primary [...] MG 1 tablet Orally ev ling 12 hrs; Duration: 14 days 10/03/2013 Active Ferrous Sulfate 325mg Active metroNIDAZOLE 500 MG 1 tablet Orally Twi ce a day; Duration: 14 days 10/03/2013 Active Glimepiride 4mg Acti ve Colyte with Flavor Packs 240 GM As directed Orally Over the specified time.; Duration: 1 day(s) 09/05/2013 10/29/2024 Active metFORMIN HCl 1000mg Active Omeprazole 20 MG 1 capsule Orally Twi ce a day; Duration: 14 days 10/03/2013 Active Simvastatin 20mg Act noel Januvia 100mg Active Problems Problem Type SNOMED Code ICD Code Onset Dates Problem Status W/U Status Risk Notes Problem Iron deficiency anemia (75353036) Iron deficiency anemia (280.9) Active confirmed Plan Of Treatment Future Test Test Name Order Date UPPER GI ENDOSCOPY 09/05/2013 COLONOSCOPY 09/05/2013 Insurance Providers Payer Name Payer Address Payer Phone Subscriber Number Group Number Insured Name Patient Relationship to Insured Coverage Start Date Coverage End Date [facility] [address] [place] [address] [id number] KARIN RODRIGUEZ Self - patient is the insured Medical (General) History Medical History History ICD Code iron deficiency anemia type II diabetes elevated cholesterol Surgical History Surgery Date(Month/Year) appendectomy
== END 2025-09-10 08:54 | disposition home or self-care (01) ==
LOC: HO.ENCR 08:26
PROVIDERS: PCP Internal Medicine; Visit Provider Internal Medicine Endocrinology, Diabetes & Metabolism
DX: E11.65 Type 2 diabetes mellitus with hyperglycemia (principal)
CPT/HCPCS: 99213

== ENCOUNTER → 2025-09-10 08:25 | Outpatient (BNVA) | payer OTHER, SELFPAY | PROVIDERS: PCP Internal Medicine; Visit Provider Internal Medicine Endocrinology, Diabetes & Metabolism | DX: E11.65 Type 2 diabetes mellitus with hyperglycemia (principal) | CPT/HCPCS: 82947; 83036; 99212 ==